=== PATIENT | female | born 1985 | race African-American/Black ===

== ENCOUNTER 2020-03-11 10:34 | Outpatient (REF) | payer MEDICAID, SELFPAY ==
--- NOTE | 2020-03-11 10:40 | XR_ITS ---
EXAMINATION: BILATERAL KNEE. CLINICAL INFORMATION: Pain bilaterally. COMPARISON: None TECHNIQUE: 4 views each knee. FINDINGS: RIGHT KNEE: The tricompartment joint space is maintained. There are no loose bodies, bony erosive changes or joint effusion. LEFT KNEE: The tricompartment joint space is maintained normal. No visible acute fracture, dislocation subluxation. No loose bodies or joint effusion. XR/XR knee LT 4V IMPRESSION: Unremarkable bilateral knee exam
--- NOTE | 2020-03-11 10:40 | XR_ITS ---
EXAMINATION: BILATERAL KNEE. CLINICAL INFORMATION: Pain bilaterally. COMPARISON: None TECHNIQUE: 4 views each knee. FINDINGS: RIGHT KNEE: The tricompartment joint space is maintained. There are no loose bodies, bony erosive changes or joint effusion. LEFT KNEE: The tricompartment joint space is maintained normal. No visible acute fracture, dislocation subluxation. No loose bodies or joint effusion. XR/XR knee RT 4V IMPRESSION: Unremarkable bilateral knee exam
== END 2020-03-11 10:35 | disposition home or self-care (01) ==
LOC: HO.XRAY 10:34
PROVIDERS: PCP Internal Medicine; Visit Provider Internal Medicine
DX: M25.561 Pain in right knee (principal); M25.562 Pain in left knee
CPT/HCPCS: 73564

== ENCOUNTER 2020-11-11 07:14 | Outpatient (REF) | payer MEDICAID, SELFPAY ==
--- NOTE | ~2020-11-11 | XR_ITS ---
EXAMINATION: XR HIP, RIGHT CLINICAL INFORMATION: Pain. COMPARISON: None TECHNIQUE: Two views of the right hip. FINDINGS: Bones and soft tissues are normal. No fracture. Alignment is anatomic. Hip joint space is maintained. Pelvic phleboliths. XR/XR hip RT min 2V IMPRESSION: Normal right hip.
== END 2020-11-11 07:15 | disposition home or self-care (01) ==
LOC: HO.HOSX 07:14
PROVIDERS: Visit Provider Physician Assistant
DX: M70.61 Trochanteric bursitis, right hip (principal); M76.891 Other specified enthesopathies of right lower limb, excluding foot
CPT/HCPCS: 73502; 99202

== ENCOUNTER 2022-10-14 11:02 | Emergency (ER) | payer MEDICAID, SELFPAY ==
--- NOTE | ~2022-10-14 | US_ITS ---
EXAMINATION: US PELVIS, LIMITED/FOLLOW UP CLINICAL INFORMATION: Abdominal pain COMPARISON: None available. TECHNIQUE: Transabdominal Limited pelvic ultrasound FINDINGS: Gravid uterus noted. No fluid seen in the abdomen or pelvis. US/US pelvic limited IMPRESSION: No ascites.
--- NOTE | 2022-10-14 11:04 | ED.ABDPAIN ---
HPI - Abdominal Pain General Chief Complaint: Abdominal Pain Stated Complaint: Hernia Time Seen by Provider: 10/14/22 11:13 Source: patient Mode of arrival: ambulatory Limitations: no limitations History of Present Illness HPI narrative: 82-upln-uxa-female, , who is 12 weeks , with a hx of abdominal hernia, presenting to the ER with complaints of severe abdominal pain x 1 hour. She reports failed attempt at hernia reduction at prior to arrival w/o success. Patient reports severe 10/10 pain w/ a/c nausea, diaphroesis. Called Garima Graves who told her to go to PCP and seek eval, she went to who was unable to reduce hernia. Denies fever, chills, N/V, diarrhea, constipation, back pain, hematuria, dysuria. No previous abd surgeries MD elicited complaint: abdominal pain Related Data Home Medications Medication Instructions Recorded Confirmed buprenorphine 2 mg-naloxone 0.5 mg 1 film buccal DAILY 11/11/20 sublingual film (Suboxone) buprenorphine 8 mg-naloxone 2 mg 1 film buccal DAILY 11/11/20 sublingual film (Suboxone) Allergies Allergy/AdvReac Type Severity Reaction Status Date / Time No Known Allergies Allergy Verified 11/11/20 10:21 Review of Systems Review of Systems Constitutional : No Weight loss, No Fever, No Chills, No Fatigue, No Malaise ENT/Mouth : No sore throat, No Rhinorrhea Eyes: No Eye Pain, No Swelling, No Redness Cardiovascular : No Chest Pain, No SOB, No Dyspnea on Exertion, No Orthopnea, No Edema, No Palpitations Respiratory : No Cough, No Sputum, No Wheezing Gastrointestinal : No Nausea, No Vomiting, No Diarrhea, No Constipation, + abdominal Pain, No Hematochezia, No Melena Genitourinary : No Dysuria, No Urinary Frequency, No Hematuria, Musculoskeletal : No joint pain, No Myalgias, No Joint Swelling Skin : No Skin Lesions, No rash Neuro : No Weakness, No Numbness, No Dizziness, No Headache All other systems reviewed and are negative Yes all other systems are reviewed and are negative [facility] Past Medical History Attestation statement: The following information was validated with the patient. Source: old records reviewed and nursing notes reviewed Surgical History History of hernia surgery Social History Social History Alcohol intake: never Smoked in Last 30 Days: No Use of substances other than those prescribed or required for medical reasons: No Advance Directives: No Advance Directives Information Provided: No Current occupational status: disabled Current occupation: rt handed Physical Exam ED Vital Signs: Vital Signs - 24 hr 10/14/22 11:05 10/14/22 12:31 10/14/22 12:46 Temperature 98 F Pulse Rate 93 88 81 Respiratory Rate 18 18 18 Blood Pressure 138/84 139/78 139/79 Pulse Oximetry 98 98 98 Oxygen Delivery Method Room Air Room Air Room Air BMI result Body Mass Index 28.9 vss Appearance: Alert.? Oriented X3. Patient appears very uncomfortable. Diaphoretic Head: Normocephalic, atraumatic, no step-offs or deformities Eyes: Pupils equal, round and reactive to light.? CVS: Normal heart rate and rhythm.? Pulses normal.? Respiratory: No respiratory distress.? Breath sounds normal.? Abdomen: Soft and tender to epigastric region w/ nonreducible hernia (incarcerated) Skin: Skin warm and dry.? Normal skin color.? Normal skin turgor.? Extremities: No lower extremity edema.? No calf ttp. 5/5 strength to bilateral upper and lower extremities Back: No midline tenderness, no C-spine tenderness, full range of motion, no CVA tenderness bilaterally Neuro: Oriented X 3.? No motor deficit.? No sensory deficit. CN 2-12 intact Course Course Course Narrative: This is an RME: Additional HPI, ROS, PE not included below will be deferred to primary provider. This is a 7-mbgq-bcb-female, , who is 12 weeks , with a hx of abdominal hernia, presenting to the ER with complaints of severe abdominal pain x 1 hour. Pt has hx of an abdominal hernia. She was seen at an urgent care in attempts to reduce the hernia, however was unable to do so. She appears uncomfortable. Ventral hernia noted, moaning in pain. Vital signs stable. No nausea or vomiting since onset of symptoms. Moved back to main ER due to current presentation. Plan: Further ER evaluation needed. Reevaluation(s) Reevaluation #1: Dr. Maynard [facility] states this is not OBGYN related need to speak to [facility] ED. General surgeon Dr. Ramirez at the bedside for eval. Time: 11:40 Reevaluation #2: general surgeon agrees likely incarcerated hernia, patient should be transferred to a facility that has Ob/ ob/gyn and surgery, patient requires higher level care, no obstetrics coverage here in this facility today. On hold with [facility] for emergent transfer. Time: 11:54 Reevaluation #3: No answer from [facility] ED X [address] Simon general surgery [facility] [place] [facility] [place]. Time: 12:09 Additional Reevaluation(s): Patient is still in 10/10 pain. Fentanyl as well as dilauded were ordered Dr. Swift recommended adding dilauded due to patients pain. 1230 waiting for room number from [facility] patient still complaining of severe 10/10 pain, I did inform the surgeon at [facility] about this, patient now to be going to the emergency department and surgery will evaluate her there. Second lactic acid pending Medical Decision Making Medical Decision Making MDM Narrative: 1122 37 yo female presenting with severe abdominal pain currently 12 weeks Patient moaning in pain, visibly uncomfortable, diaphoretic . VSS. Physical exam notable for ventral hernia, unable to reduce. Plan: basic labs, CPK, lactic Clinical concern for strangulated ventral hernia. Low suspicion for ectopic , ovarian cyst rupture, threatened , UTI, PID, pyelonephritis, nephrolithiasis. Will call [facility] at this time no OBGYN coverage at this time. at the bedside to evaluate patient while [facility] call back pending request fentanyl for pain control. Differential Diagnosis Differential Diagnoses: The differential diagnosis associated with the presentation includes Clinical concern for strangulated ventral hernia. Low suspicion for ectopic , ovarian cyst rupture, threatened , UTI, PID, pyelonephritis, nephrolithiasis. Admission/Observation Consideration of admission/observation: Escalation of care including admission/observation considered Lab Data [facility] Lab Attestation statement: I reviewed the patient's lab results. 10/14/22 11:34 10/14/22 11:34 Labs: Lab Results 10/14/22 10/14/22 10/14/22 Range/Units 11:34 11:34 11:34 WBC 6.5 (4.8-10.8) X10*3/uL RBC 4.38 (4.20-5.50) X10*6/uL Hgb 13.8 (12.0-16.0) g/dl Hct 38.9 (37.0-47.0) % MCV 88.8 (80.0-98.0) fL MCH 31.5 (27.0-33.0) pg MCHC 35.5 H (31.0-35.0) g/dl RDW 11.4 (11.0-16.0) % Plt Count 279 (160-400) X10*3/uL MPV 10.4 (9.4-12.3) fL Immature Gran % (Auto) 0.3 (0.0-0.4) % Neut % (Auto) 58.0 (45-73) % Lymph % (Auto) 30.9 (20-40) % Newberry % (Auto) 8.5 (2-11) % Eos % (Auto) 2.0 (0-4) % Baso % (Auto) 0.3 (0-2) % Lymph # (Auto) 2.0 (1.2-4.9) X10*3/uL Newberry # (Auto) 0.6 (0.1-1.2) X10*3/uL Eos # (Auto) 0.1 (0.0-0.4) X10*3/uL Baso # (Auto) 0.0 (0.0-0.2) X10*3/uL Abs Immat Gran (auto) 0.02 (0.00-0.03) X10*3/uL Absolute Neuts (auto) 3.8 (2.0-8.3) x10*3/uL Absolute Nucleated RBC 0.000 (0.0-0.012) X10*3/uL Nucleated RBC % (auto) 0.0 (0.0-0.2) /100WBC Sodium 138 (135-145) mmol/L Potassium 3.7 (3.3-5.1) mmol/L Chloride 104 (96-108) mmol/L Carbon Dioxide 21 L (22-29) mmol/L Anion Gap 17 (12-20) BUN 9 (9-16) mg/dL Creatinine 0.75 (0.5-1.4) mg/dL Estim Creat Clear Calc 97.0 Estimated GFR > 60 Random Glucose 106 (60-115) mg/dL Lactic Acid 1.6 (0.5-2.0) mmol/L Calcium 9.8 (8.4-10.2) mg/dL Magnesium 2.0 (1.6-2.6) mg/dL Total Bilirubin 0.6 (0.0-1.0) mg/dL Direct Bilirubin 0.2 (0.0-0.5) mg/dL AST 12 (5-31) U/L ALT 8 (0-31) U/L Alkaline Phosphatase 44 (39-117) U/L Total Creatine Kinase 73 (26-140) U/L Total Protein 7.9 (6.5-8.0) g/dL Albumin 4.3 (3.5-5.0) g/dL Lipase 9 (8-78) U/L COVID-19 (NOHEMI) (Negative) COVID-19 Clin Com 10/14/22 Range/Units 12:13 WBC (4.8-10.8) X10*3/uL RBC (4.20-5.50) X10*6/uL Hgb (12.0-16.0) g/dl Hct (37.0-47.0) % MCV (80.0-98.0) fL MCH (27.0-33.0) pg MCHC (31.0-35.0) g/dl RDW (11.0-16.0) % Plt Count (160-400) X10*3/uL MPV (9.4-12.3) fL Immature Gran % (Auto) (0.0-0.4) % Neut % (Auto) (45-73) % Lymph % (Auto) (20-40) % Newberry % (Auto) (2-11) % Eos % (Auto) (0-4) % Baso % (Auto) (0-2) % Lymph # (Auto) (1.2-4.9) X10*3/uL Newberry # (Auto) (0.1-1.2) X10*3/uL Eos # (Auto) (0.0-0.4) X10*3/uL Baso # (Auto) (0.0-0.2) X10*3/uL Abs Immat Gran (auto) (0.00-0.03) X10*3/uL Absolute Neuts (auto) (2.0-8.3) x10*3/uL Absolute Nucleated RBC (0.0-0.012) X10*3/uL Nucleated RBC % (auto) (0.0-0.2) /100WBC Sodium (135-145) mmol/L Potassium (3.3-5.1) mmol/L Chloride (96-108) mmol/L Carbon Dioxide (22-29) mmol/L Anion Gap (12-20) BUN (9-16) mg/dL Creatinine (0.5-1.4) mg/dL Estim Creat Clear Calc Estimated GFR Random Glucose (60-115) mg/dL Lactic Acid (0.5-2.0) mmol/L Calcium (8.4-10.2) mg/dL Magnesium (1.6-2.6) mg/dL Total Bilirubin (0.0-1.0) mg/dL Direct Bilirubin (0.0-0.5) mg/dL AST (5-31) U/L ALT (0-31) U/L Alkaline Phosphatase (39-117) U/L Total Creatine Kinase (26-140) U/L Total Protein (6.5-8.0) g/dL Albumin (3.5-5.0) g/dL Lipase (8-78) U/L COVID-19 (NOHEMI) Negative (Negative) COVID-19 Clin Com See Note Core Measures AMI core measures followed: Yes Measure exclusions: not indicated Medications Administered Discontinued Medications Generic Name Dose Route Start Last Admin Trade Name Freq PRN Reason Stop Dose Admin Acetaminophen 975 mg 10/14/22 11:36 10/14/22 11:47 Acetaminophen 325 Mg Tablet PO 10/14/22 11:37 Not Given ONCE ONE Fentanyl 50 mcg 10/14/22 11:37 10/14/22 11:43 Fentanyl Citrate/Pf 100 Mcg/2 Ml Vial IVPUSH 10/14/22 11:38 50 mcg ONCE ONE Administration Protocol Fentanyl 50 mcg 10/14/22 12:26 10/14/22 12:30 Fentanyl Citrate/Pf 100 Mcg/2 Ml Vial IVPUSH 10/14/22 12:27 50 mcg ONCE ONE Administration Protocol Hydromorphone HCl 0.25 mg 10/14/22 12:29 10/14/22 12:45 Hydromorphone Hcl 0.5 Mg/0.5 Ml Syringe IVPUSH 10/14/22 12:30 0.25 mg ONCE ONE Administration Protocol Hydromorphone HCl 0.25 mg 10/14/22 13:29 10/14/22 14:01 Hydromorphone Hcl 0.5 Mg/0.5 Ml Syringe IVPUSH 10/14/22 13:30 0.25 mg ONCE ONE Administration Protocol Critical Care Time Critical Care Time Critical Care Time: Yes Total Critical Care Time: 45 Attestation: I attest to this time spent taking care of the patient, obtaining history, physical, reviewing labs, imaging, speaking to my attending, speaking to specialist. Discharge Plan Discharge Clinical Impression: Incarcerated epigastric hernia, Abdominal pain Patient Disposition: [facility] Transfer Details: [facility] [place] Simon
[2022-10-14 11:05] VITALS: BP 138/84; PULSE 93; RESP 18; TEMP 36.6; O2SAT 98; BMI 28.9
--- OUTSIDE RECORDS SUMMARY | 2022-10-14 11:22 | XMS_ITS | Continuity of Care Document ---
Author Name Unknown Organization [facility] Address [address] [place] [id number] Care Team Providers Care Datastage Developer Name Role Phone Chino SMYTH, Edward Vigil Primary Care Physician Encounter [facility] Date(s): 11/23/19 - 12/23/[address] [address]- Allergies, Adverse Reactions, Alerts Substance Reaction Severity Status NKA Active Immunizations Given and Recorded Vaccine Date Status Refusal Reason influenza virus vaccine, inactivated 12/03/19 Give n influenza virus vaccine, inactivated 04/10/19 Give n influenza virus vaccine, inactivated 11/23/17 Give n tetanus/diphtheria/pertussis, acel(Tdap) 09/07/19 Given tetanus/diphtheria/pertussis, acel(Tdap) 12/24/17 Given tetanus/diphtheria/pertussis, acel(Tdap) 07/24/13 Given Medications abdominal binder abdominal binder, See Instructions, # 1 each, Refills 0, Tot. Refills 0, Maintenance, wear during the day, 05/19/19 12:57:00 EDT, Supply Start Date: 05/19/19 Status: Ordered acetaminophen 325 mg oral tablet 650 mg, By Mouth, Every 4 hours, PRN, not to exceed 4000 mg/day, # 60 tablet, Refills 0, Tot. Refills 0, Maintenance, Pain , Mild, 12/04/19 8:15:00 EDT, Route to Pharmacy Electronically, [facility] #[id number], 158, cm, 12/04/19 0:00:00 EDT, [place]... Start Date: 12/04/19 Status: Ordered ibuprofen 800 mg oral tablet 800 mg, 1, tablet, By Mouth, Every 8 hours, PRN, not to exceed 3200 mg/day with food or milk, # 60 tablet, Refills 0, Tot. Refills 0, Maintenance, Pain , Moderate, 12/04/19 8:15:00 EDT, Route to Pharmacy Electronically, [facility] #[id number], 1... Start Date: 12/04/19 Status: Ordered Multivitamins with Folic Acid 1 mg oral tablet 1 tablet, By Mouth, Daily, # 90 tablet, 3 Refills, Maintenance, 03/23/18 14:58:20 EST, Tablet, 1 tablet By Mouth Daily,x90 days Start Date: 03/23/18 Stop Date: 03/18/19 Status: Ordered Multivitamins with Folic Acid 1 mg oral tablet 1 tablet, By Mouth, Daily, # 90 tablet, 2 Refills, Maintenance, 03/31/19 12:43:00 EST, Tablet, [facility] #[id number], 1 tablet By Mouth Daily, 158, cm, 08/01/18 9:39:00 EDT, Height, 74, kg, 03/08/18 17:20:00 EST, Dry Weight Start Date: 03/31/19 Status: Ordered promethazine 25 mg oral tablet 1 tablet = 25 mg, By Mouth, 4 times a day, PRN as needed for nausea/vomiting, # 90 tablet, 3 Refills, Maintenance, 05/11/19 13:48:00 EDT, Tablet, [facility] #[id number], 158, cm, 04/10/19 10:17:00 EST, Height, 85.1, kg, 04/10/19 10:17:00 EST, Dry... Start Date: 05/11/19 Status: Ordered Suboxone 4 mg-1 mg sublingual film 1 film, Sublingual, 2 times a day, dissolve under the tongue, 0 Refills, Maintenance, 05/18/19 15:52:00 EDT, Film Start Date: 05/18/19 Status: Ordered Valtrex 500 mg oral tablet 500 mg, 1, tablet, By Mouth, Every 12 hours, Take as directed for suppression, # 6 tablet, Refills 3, Tot. Refills 3, Acute 09/04/20 14:33:00 EDT, 09/05/19 14:31:00 EDT, Route to Pharmacy Electronically, [facility] #[id number], 158, cm, 08/10/19... Start Date: 09/05/19 Stop Date: 09/04/20 Status: Ordered Problem List Condition Effective Dates Status Health Status Inform ant Sports induced - Asthma(Confirmed) Active Bipolar(Confirmed) 1, 2 Active Marijuana use(Confirmed) Active Generalized anxiety disorder(Confirmed) Active H/O: depression(Confirmed) Active H/O childhood trauma(Confirmed) Active History of herpes genitalis(Confirmed) Active History of frequent urinary tract infections(Confirmed) 3 Active Opiate dependence(Confirmed) Active exam(Confirmed) Active HX of Post depression(Confirmed) Active Umbilical hernia s/p repair in 1989, now new one since delivery(Confirmed) Active 1Managed by [facility], seen twice a month for therapy and once monthly for med management. Patient states well controlled at this time 2hx of bipolar with mental health services - not managed at present 3during pregnancies per pt's hx Social History Social History Type Response Tobacco Use: 4 or less cigar ettes(less than 1/4 pack)/day in last 30 days. Sex
--- OUTSIDE RECORDS SUMMARY | 2022-10-14 11:22 | XMS_ITS | Continuity of Care Document ---
Author Name Unknown Organization [facility] Address [address] [place] [id number]- Care Team Providers Care Stevedoring Supervisor Name Role Phone Edward Magana MD Primary Care Physician [place] [facility] [place](s): [place]/18/[place] - 05/25/[address] [address]- [facility] Attending Physician: Melissa Lobo MD Admitting Physician: Melissa Lobo MD Referring Physician: Edward Magana MD Allergies, Adverse Reactions, Alerts Substance Reaction Severity Status NKA Active Immunizations Given and Recorded Vaccine Date Status Refusal Reason influenza virus vaccine, inactivated 04/10/19 Give n influenza virus vaccine, inactivated 11/23/17 Give n tetanus/diphtheria/pertussis, acel(Tdap) 12/24/17 Given tetanus/diphtheria/pertussis, acel(Tdap) 07/24/13 Given Medications abdominal binder abdominal binder, See Instructions, # 1 each, Refills 0, Tot. Refills 0, Maintenance, wear during the day, 05/19/19 12:57:00 EDT, Supply Start Date: 05/19/19 Status: Ordered cloNIDine 0.1 mg oral tablet 0.1 mg, 1, tablet, By Mouth, 3 times a day, PRN, Refills 0, Maintenance, Anxiety, 04/10/19 10:30:00EST Start Date: 04/10/19 Status: Ordered Multivitamins with Folic Acid 1 mg oral tablet 1 tablet, By Mouth, Daily, # 90 tablet, 3 Refills, Maintenance, 03/23/18 14:58:20 EST, Tablet, 1 tablet By Mouth Daily,x90 days Start Date: 03/23/18 Stop Date: 03/18/19 Status: Ordered Multivitamins with Folic Acid 1 mg oral tablet 1 tablet, By Mouth, Daily, # 90 tablet, 2 Refills, Maintenance, 03/31/19 12:43:00 EST, Tablet, [facility] #[id number], 1 tablet By Mouth Daily, 158, cm, 08/01/18 9:39:00 EDT, Height, 74, kg, 03/08/18 17:20:00 EST, Dry Weight Start Date: 03/31/19 Status: Ordered promethazine 25 mg oral tablet 1 tablet = 25 mg, By Mouth, 4 times a day, PRN as needed for nausea/vomiting, # 90 tablet, 3 Refills, Maintenance, 05/11/19 13:48:00 EDT, Tablet, [facility] #[id number], 158, cm, 04/10/19 10:17:00 EST, Height, 85.1, kg, 04/10/19 10:17:00 EST, Dry... Start Date: 05/11/19 Status: Ordered Suboxone 4 mg-1 mg sublingual film 1 film, Sublingual, 2 times a day, dissolve under the tongue, 0 Refills, Maintenance, 05/18/19 15:52:00 EDT, Film Start Date: 05/18/19 Status: Ordered Valtrex 500 mg oral tablet 500 mg, 1, tablet, By Mouth, Daily, Refills 0, Maintenance, 03/23/18 14:40:50 EST Start Date: 03/23/18 Status: Ordered Problem List Condition Effective Dates Status Health Status Inform ant Sports induced - Asthma(Confirmed) Active Bipolar(Confirmed) 1, 2 Active Marijuana use(Confirmed) Active H/O: depression(Confirmed) Active H/O childhood trauma(Confirmed) Active History of herpes genitalis(Confirmed) Active History of frequent urinary tract infections(Confirmed) 3 Active Opiate dependence(Confirmed) Active HX of Post depression(Confirmed) Active Umbilical hernia s/p repair in 1989, now new one since delivery(Confirmed) Active 1Managed by [facility], seen twice a month for therapy and once monthly for med management. Patient states well controlled at this time 2hx of bipolar with mental health services - not managed at present 3during pregnancies per pt's hx Social History Social History Type Response Tobacco Use: 4 or less cigar ettes(less than 1/4 pack)/day in last 30 days. Other: Cutting down during , smokes one cigarette daily. Sex Female
--- OUTSIDE RECORDS SUMMARY | 2022-10-14 11:22 | XMS_ITS | Continuity of Care Document ---
Author Name Unknown Organization [facility] Address [address] [place] [id number]- Care Team Providers Care Cigarette Book Maker Name Role Phone Chino SMYTH, Edward Vigil Primary Care Physician Encounter [facility] [place] Date(s): 07/13/19 - 07/20/[address] [address]- [facility] Attending Physician: Melissa Lobo MD Referring Physician: Edward [...] EDT, Supply Start Date: 05/19/19 Status: Ordered aspirin 81 mg oral tablet 2 tablet = 162 mg, By Mouth, Daily, # 60 tablet, 7 Refills, Maintenance, 06/15/19 15:22:00 EDT, Tablet, [facility] #[id number], 158, cm, 06/15/19 15:06:00 EDT, Height, 85.1, kg, 04/10/19 10:17:00 EST, Dry Weight Start Date: 06/15/19 Status: Ordered cloNIDine 0.1 mg oral tablet [...] 2 Refills, Maintenance, 03/31/19 12:43:00 EST, Tablet, [facility] #[id number], 1 tablet By Mouth Daily, 158, cm, 08/01/18 9:39:00 EDT, Height, 74, kg, 03/08/18 17:20:00 EST, Dry Weight Start Date: 03/31/19 Status: Ordered promethazine 25 mg oral tablet 1 tablet = 25 mg, By Mouth, 4 times a day, PRN as needed for nausea/vomiting, # 90 tablet, 3 Refills, Maintenance, 05/11/19 13:48:00 EDT, Tablet, [facility] #[id number], 158, cm, 04/10/19 10:17:00 EST, Height, 85.1, [...]
--- OUTSIDE RECORDS SUMMARY | 2022-10-14 11:22 | XMS_ITS | Continuity of Care Document ---
Author Name Unknown Organization [facility] Address [address] [place] [address]- Care Team Providers Care Flare Stitcher Name Role Phone Chino SMYTH, Edward Vigil Primary Care Physician Encounter [facility] [place] Date(s): 01/07/21 - 03/01/[address] [address]- Attending Physician: Yamil SMYTH [OB], Melissa Duron Admitting Physician: Yamil SMYTH [OB], Melissa Duron Referring Physician: Hyun Gramajo MD Allergies, Adverse Reactions, Alerts No Known Allergies Immunizations Given and Recorded Vaccine Date Status [...] EDT, Supply Start Date: 05/19/19 Status: Ordered Multivitamins with Folic Acid 1 mg oral tablet 1 tablet, By Mouth, Daily, # 90 tablet, 3 Refills, Maintenance, 01/07/21 10:31:00 EST, Tablet, [facility] #[id number], Partial fill upon patient request if the prescription is for a schedule II opioid drug., 1 tablet By Mouth Daily, 158, cm, 11/16... Start Date: 01/07/21 Status: Ordered Suboxone 4 mg-1 mg sublingual film 1 film, Sublingual, 2 times a day, dissolve under the tongue, 0 Refills, Maintenance, 05/18/19 15:52:00 EDT, Film Start Date: 05/18/19 Status: Ordered Problem List Condition Effective Dates Status Health Status Inform ant Sports induced - Asthma(Confirmed) 1 Active Bipolar(Confirmed) 2, 3 Active BMI 30.0-30.9,adult(Confirmed) Active Marijuana use(Confirmed) 4 Active Generalized anxiety disorder(Confirmed) Active H/O: depression(Confirmed) Active H/O childhood trauma(Confirmed) Active History of herpes genitalis(Confirmed) Active History of frequent urinary tract infections(Confirmed) 5 Active Obese class I(Confirmed) Active Opiate dependence(Confirmed) 6 Active HX of Post depression(Confirmed) Active PTSD (post-traumatic stress disorder)(Confirmed) Active H/O Gestational hypertension(Confirmed) Active Schizoaffective disorder, bi polar type(Confirmed) 7 Active Tobacco use(Confirmed) 8 Active Umbilical hernia s/p repair in 1989, now new one since delivery(Confirmed) Active 1Patient states she does not have an inhaler 2Managed by [facility], seen twice a month for therapy and once monthly for med management. Patient states well controlled at this time 3hx of bipolar with mental health services - not managed at present 4Medical MJ card 5during pregnancies per pt's hx 6currently takes 10 mg suboxone daily through [facility] [address] 7Patient states she is not in therapy or on medications at this time. States she is on a waitlist for counseling. States currently stable and feels well. Accepts N consult. 8States working on cutting down to quit in . States she currently smokes 1 cigarette daily.Declines NRT. Social History Social History Type Response Tobacco Use: 4 or less cigar ettes(less than 1/4 pack)/day in last 30 days. Other: Cutting down during , smokes one cigarette daily. Sex Female
--- OUTSIDE RECORDS SUMMARY | 2022-10-14 11:22 | XMS_ITS | Continuity of Care Document ---
Author Name Unknown Organization [facility] ter Address [address] [place] [address]- Care Team Providers Care Burial Vault Maker Name Role Phone Edward Magana MD Primary Care Physician Encounter [facility] [place] Date(s): 05/24/20 - 05/25/[address] [address]- Discharge Disposition: A-D/C Walkout Attending Physician: Not on Staff, Attending MD Admitting Physician: Not on Staff, Admitting MD Referring Physician: Not on Staff, Referring MD Allergies, Adverse Reactions, Alerts Substance Reaction [...] 12/04/19 8:15:00 EDT, Route to Pharmacy Electronically, [facility] #[id number], 158, cm, 12/04/19 0:00:00 EDT, Heig... Start Date: 12/04/19 Status: Ordered ibuprofen 800 mg oral tablet 800 mg, 1, tablet, By Mouth, Every 8 hours, PRN, not to exceed 3200 mg/day with food or milk, # 60 tablet, Refills 0, Tot. Refills 0, Maintenance, Pain , Moderate, 12/04/19 8:15:00 EDT, Route to Pharmacy Electronically, [facility] #[id number], 1... Start Date: 12/04/19 Status: Ordered Multivitamins with Folic Acid 1 mg oral tablet 1 tablet, By Mouth, Daily, # 90 tablet, 2 Refills, Maintenance, 03/31/19 12:43:00 EST, Tablet, [facility] #[id number], 1 tablet By Mouth Daily, 158, cm, 08/01/18 9:39:00 EDT, Height, 74, kg, 03/08/18 17:20:00 EST, Dry Weight Start Date: 03/31/19 Status: Ordered Multivitamins with Folic Acid 1 mg oral tablet 1 tablet, By Mouth, Daily, # 90 tablet, 3 Refills, Maintenance, 03/23/18 14:58:20 EST, Tablet, 1 tablet By Mouth Daily,x90 days Start Date: 03/23/18 Stop Date: 03/18/19 Status: Ordered promethazine 25 mg oral tablet 1 tablet = 25 mg, By Mouth, 4 times a day, PRN as needed for nausea/vomiting, # 90 tablet, 3 Refills, Maintenance, 05/11/19 13:48:00 EDT, Tablet, [facility] #[id number], 158, cm, 04/10/19 10:17:00 EST, Height, 85.1, [...] 09/05/19 14:31:00 EDT, Route to Pharmacy Electronically, [facility] #[id number], 158, cm, 08/10/19... Start Date: 09/05/19 Stop [...] at present 3during pregnancies per pt's hx Vital Signs Most recent to oldest [Reference Range]: 1 2 Oxygen Saturation [94-100 %] 98 % (05/24/20 9:29 PM) 100 % (05/24/20 7:43 PM) Pulse Rate [55-90 bpm] 82 bpm (05/24/20 9:29 PM) 95 bpm *H* (05/24/20 7:43 PM) Blood Pressure [90-138/55-84 mm Hg] 129/ 75mm Hg (05/24/20 9:29 PM) 124/77mm Hg (05/24/20 7:43 PM) Respiratory Rate [16-30 br/min] 15 br/mi n *L* (05/24/20 9:29 PM) 20 br/min (05/24/20 7:43 PM) Temperature [96.8-100.4 DegF] 99.2 DegF (05/24/20 9:29 PM) 100.3 DegF (05/24/20 7:43 PM) Mode of Delivery (Oxygen) Room air (05/24/20 9:29 PM) Room air (05/24/20 7:43 PM) Blood pressure sites Arm, left (05/24/20 9:29 PM) Arm, right (05/24/20 7:43 PM) Temperature Route Oral (05/24/20 9:29 PM) Oral (05/24/20 7:43 PM) Social History Social History Type Response Tobacco Use: 4 or less cigar ettes(less than 1/4 pack)/day in last 30 days. Sex
--- OUTSIDE RECORDS SUMMARY | 2022-10-14 11:22 | XMS_ITS | Continuity of Care Document ---
Author Name Unknown Organization [facility] Address [address] [place] [address]- Care Team Providers Care Commercial Sheet Metal Foreman Name Role Phone Chino SMYTH, Edward Vigil Primary Care Physician En[facility] [place] [facility] Date(s): 10/24/19 - 11/23/[address] [address]- [facility] Allergies, Adverse Reactions, Alerts Substance Reaction Severity Status NKA Active Immunizations Given and Recorded Vaccine Date Status Refusal Reason tetanus/diphtheria/pertussis, acel(Tdap) 09/07/19 Given tetanus/diphtheria/pertussis, acel(Tdap) 12/24/17 Given tetanus/diphtheria/pertussis, acel(Tdap) 07/24/13 Given influenza virus vaccine, inactivated 04/10/19 Give n influenza virus vaccine, inactivated 11/23/17 Give n Medications abdominal binder abdominal binder, See Instructions, # 1 each, Refills 0, Tot. Refills 0, Maintenance, wear during the day, 05/19/19 12:57:00 EDT, Supply Start Date: 05/19/19 Status: Ordered aspirin 81 mg oral tablet 2 tablet = 162 mg, By Mouth, Daily, # 60 tablet, 7 Refills, Maintenance, 06/15/19 15:22:00 EDT, Tablet, [facility] #[id number], 158, cm, 06/15/19 15:06:00 EDT, Height, 85.1, kg, 04/10/19 10:17:00 EST, Dry Weight Start Date: 06/15/19 Status: Ordered Multivitamins with Folic Acid 1 mg oral tablet 1 tablet, By Mouth, Daily, # 90 tablet, 3 Refills, Maintenance, 03/23/18 14:58:20 EST, Tablet, 1 tablet By Mouth Daily,x90 days Start Date: 03/23/18 Stop Date: 03/18/19 Status: Ordered Multivitamins with Folic Acid 1 mg oral tablet 1 tablet, By Mouth, Daily, # 90 tablet, 2 Refills, Maintenance, 03/31/19 12:43:00 EST, Tablet, [facility] #[id number], 1 tablet By Mouth Daily, 158, cm, 08/01/18 9:39:00 EDT, Height, 74, kg, 03/08/18 17:20:00 EST, Dry Weight Start Date: 03/31/19 Status: Ordered promethazine 25 mg oral tablet 1 tablet = 25 mg, By Mouth, 4 times a day, PRN as needed for nausea/vomiting, # 90 tablet, 3 Refills, Maintenance, 05/11/19 13:48:00 EDT, Tablet, [facility] #[id number], 158, cm, 04/10/19 10:17:00 EST, Height, 85.1, [...] 09/05/19 14:31:00 EDT, Route to Pharmacy Electronically, [facility] #[id number], 158, cm, 08/10/19... Start Date: 09/05/19 Stop [...] 1/4 pack)/day in last 30 days. Sex Female
--- OUTSIDE RECORDS SUMMARY | 2022-10-14 11:22 | XMS_ITS | Continuity of Care Document ---
Author Name Unknown Organization [facility] ter Address [address] [place] [address]- Care Team Providers Care Grain Packer Name Role Phone Chino SMYTH, Edward Vigil Primary Care Physician Encounter [facility] [place] Date(s): 02/11/21 - 02/18/[address] [address] Attending Physician: Yamil SMYTH [OB], Melissa Duron Allergies, Adverse Reactions, Alerts Substance Reaction Severity [...] 3 Refills, Maintenance, 01/07/21 10:31:00 EST, Tablet, [facility] #[id number], Partial fill upon patient request if the prescription is for a schedule II opioid drug., 1 tablet By Mouth Daily, 158, cm, 102... Start Date: 01/07/21 Status: Ordered Suboxone 4 [...] does not have an inhaler 2Managed by [facility], seen twice a month for therapy and once monthly for med management. Patient states well controlled at this time 3hx of bipolar with mental health services - not managed at present 4Medical MJ card 5during pregnancies per pt's hx 6currently takes 10 mg suboxone daily through [facility] [address] 7Patient states she is not in [...]
--- OUTSIDE RECORDS SUMMARY | 2022-10-14 11:22 | XMS_ITS | Continuity of Care Document ---
Author Name Unknown Organization [facility] Address [address], [address] [place] [address]- Care Team Providers Care Geothermal Sheet Metal Worker Name Role Phone Chino SMYTH, Edward Vigil Primary Care Physician En[place] [facility] Date(s): 02/11/21 - 02/13/21 [facility] [employer] [facility] [address] [place], [place] [address] Discharge Disposition: A-D/C Home Attending Physician: Bill Conte MD Admitting Physician: Bill Conte MD Referring Physician: Edward Magana MD Allergies, [...] 3 Refills, Maintenance, 01/07/21 10:31:00 EST, Tablet, [email or web address] #[id number], Partial fill upon patient request if the [...] does not have an inhaler 2Managed by [facility], seen twice a month for therapy and once monthly for med management. Patient states well controlled at this time 3hx of bipolar with mental health services - not managed at present 4Medical MJ card 5during pregnancies per pt's hx 6currently takes 10 mg suboxone daily through [facility] [address] 7Patient states she is not in [...]
--- OUTSIDE RECORDS SUMMARY | 2022-10-14 11:22 | XMS_ITS | Continuity of Care Document ---
Author Name Unknown Organization [facility] Address [address] [place] [address]- Care Team Providers Care Bevel Face Stoner And Polisher Name Role Phone Chino SMYTH, Edward Vigil Primary Care Physician Encounter [facility] Date(s): 08/31/22 - 10/10/22 [facility] [address] [address]- Attending Physician: Not on Staff, Attending MD Allergies, Adverse Reactions, Alerts No Known Allergies Immunizations Given and Recorded Vaccine Date Status Refusal Reason influenza virus vaccine, inactivated 12/03/19 Give n influenza virus vaccine, inactivated 04/10/19 Give n influenza virus vaccine, inactivated 11/23/17 Give n tetanus/diphtheria/pertussis, acel(Tdap) 09/07/19 Given tetanus/diphtheria/pertussis, acel(Tdap) 12/24/17 Given tetanus/diphtheria/pertussis, acel(Tdap) 07/24/13 Given Medications Multivitamins with Folic Acid 1 mg oral tablet 1 tablet, By Mouth, Daily, # 90 tablet, 3 Refills, Maintenance, 01/07/21 10:31:00 EST, Tablet, [facility] #[id number], Partial fill upon patient request if the prescription is for a schedule II opioid drug., 1 tablet By Mouth Daily, 158, cm, 11/16... Start Date: 01/07/21 Status: Ordered Suboxone 4 mg-1 mg sublingual film 1 film, Sublingual, 2 times a day, dissolve under the tongue, 0 Refills, Maintenance, 05/18/19 15:52:00 EDT, Film Start Date: 05/18/19 Status: Ordered Problem List Condition Confirmation Course Effective Dates Status H ealth Status Informant Sports induced - Asthma 1 Confirmed Active Bipolar 2, 3 Confirmed Active BMI 30.0-30.9,adult Confirmed Active Marijuana use 4 Confirmed Active Generalized anxiety disorder Confirmed Active H/O: depression Confirmed Active H/O childhood trauma Confirmed Active History of herpes genitalis Confirmed Active History of frequent urinary tract infections 5 Confirmed Active AMA (advanced maternal age) multigravida 35+ Confirmed Active Obese class I Confirmed Active Opiate dependence 6 Confirmed Active HX of Post depression Confirmed Active PTSD (post-traumatic stress disorder) Confirmed Active H/O Gestational hypertension Confirmed Active Schizoaffective disorder, bipolar type 7 Confirmed Active History of Tobacco use 8, 9 Confirmed 08/29/22 Active Umbilical hernia s/p repair in 1989, now new one since delivery Confirmed Active 1Patient states she does not have an inhaler 2Managed by [facility], seen twice a month for therapy and once monthly for med management. Patient states well controlled at this time 3hx of bipolar with mental health services - not managed at present 4Medical MJ card 5during pregnancies per pt's hx 6currently takes 10 mg suboxone daily through [facility] [address] 7Patient states she is not in therapy or on medications at this time. States she is on a waitlist for counseling. States currently stable and feels well. Accepts N consult. 8Pt quit 10 days ago, was smoking 5 cigarettes prior to . Declines NRT, makes her feel awful, exacerbates pt's anxiety. 9States working on cutting down to quit in . States she currently smokes 1 cigarette daily.Declines NRT. Social History Social History Type Response Smoking Status Former smoker, quit more than 30 days ago; Other: Quit 10 days ago, was smoking 5/day; entered on: 09/10/22 Sex Female Patient Care team information Care Team Personnel Name: Hali Kirkpatrick Position: [facility] APERTURE MASK ETCHER MD Member Role: [employer] APERTURE MASK ETCHER Physician Care Team Related Persons Name: ALEXIS HELLER Address: [employer] Address: home [address] [address] [place] Name: JULIANA DAO Address: [employer] Address: home [address] [place] [address] [place] Name: KIMBERLY DOUGLAS Address: home [address] [place] [address] Name: DORIS JACOBS Address: home [address] [place] [id number]
--- OUTSIDE RECORDS SUMMARY | 2022-10-14 11:22 | XMS_ITS | Continuity of Care Document ---
Author Name Unknown Organization [facility] Address [address] [place] [address]- Care Team Providers Care Slubber Hand Name Role Phone Chino SMYTH, Edward Vigil Primary Care Physician Encounter [facility] Date(s): 09/05/19 - 10/05/19 [facility] [address] [address]- [facility] Allergies, Adverse Reactions, Alerts Substance [...] 7 Refills, Maintenance, 06/15/19 15:22:00 EDT, Tablet, [facility] #[id number], 158, cm, 06/15/19 15:06:00 EDT, Height, 85.1, [...] 2 Refills, Maintenance, 03/31/19 12:43:00 EST, Tablet, [facility] #[id number], 1 tablet By Mouth Daily, 158, cm, 08/01/18 9:39:00 EDT, Height, 74, kg, 03/08/18 17:20:00 EST, Dry Weight Start Date: 03/31/19 Status: Ordered promethazine 25 mg oral tablet 1 tablet = 25 mg, By Mouth, 4 times a day, PRN as needed for nausea/vomiting, # 90 tablet, 3 Refills, Maintenance, 05/11/19 13:48:00 EDT, Tablet, [facility] #[id number], 158, cm, 04/10/19 10:17:00 EST, Height, 85.1, [...] 09/05/19 14:31:00 EDT, Route to Pharmacy Electronically, [facility] #[id number], 158, cm, 08/10/19... Start Date: 09/05/19 Stop Date: 09/04/20 Status: Ordered Problem List Condition Effective Dates Status Health Status Inform ant Sports induced - Asthma(Confirmed) Active Bipolar(Confirmed) 1, 2 Active Marijuana use(Confirmed) Active Generalized anxiety disorder(Confirmed) Active Genital herpes simplex(Confirmed) 3 09/10/19 Active H/O: depression(Confirmed) Active H/O childhood trauma(Confirmed) Active History of herpes genitalis(Confirmed) Active History of frequent urinary tract infections(Confirmed) 4 Active Opiate dependence(Confirmed) Active HX of Post depression(Confirmed) Active Umbilical hernia s/p repair in 1989, now new one since delivery(Confirmed) Active 1Managed by [facility], seen twice a month for therapy and once monthly for med management. Patient states well controlled at this time 2hx of bipolar with mental health services - not managed at present 3Problem added by Discern Expert 4during pregnancies per pt's hx Social History Social History Type Response Tobacco Use: 4 or less cigar ettes(less than 1/4 pack)/day in last 30 days. Sex Female
--- OUTSIDE RECORDS SUMMARY | 2022-10-14 11:23 | XMS_ITS | Continuity of Care Document ---
Author Name Unknown Organization [facility] ter Address [address] [place] [address]- Care Team Providers Care Operational Test Mechanic Name Role Phone Chino SMYTH, Edward Vigil Primary Care Physician En[facility] [place] Date(s): 12/03/19 - 12/04/[address] [address]- [facility] Discharge Disposition: A-D/C Home Attending Physician: Andrey Lemus MD Admitting Physician: Andrey Lemus MD Referring Physician: Andrey Lemus MD Allergies, Adverse Reactions, Alerts Substance Reaction [...] 12/04/19 8:15:00 EDT, Route to Pharmacy Electronically, [facility] #[id number], 158, cm, 12/04/19 0:00:00 EDT, Heig... Start Date: 12/04/19 Status: Ordered ibuprofen 800 mg oral tablet 800 mg, 1, tablet, By Mouth, Every 8 hours, PRN, not to exceed 3200 mg/day with food or milk, # 60 tablet, Refills 0, Tot. Refills 0, Maintenance, Pain , Moderate, 12/04/19 8:15:00 EDT, Route to Pharmacy Electronically, [facility] #[id number], 1... Start Date: 12/04/19 Status: Ordered Multivitamins [...] 2 Refills, Maintenance, 03/31/19 12:43:00 EST, Tablet, [facility] #[id number], 1 tablet By Mouth Daily, 158, cm, 08/01/18 9:39:00 EDT, Height, 74, kg, 03/08/18 17:20:00 EST, Dry Weight Start Date: 03/31/19 Status: Ordered promethazine 25 mg oral tablet 1 tablet = 25 mg, By Mouth, 4 times a day, PRN as needed for nausea/vomiting, # 90 tablet, 3 Refills, Maintenance, 05/11/19 13:48:00 EDT, Tablet, [facility] #[id number], 158, cm, 04/10/19 10:17:00 EST, Height, 85.1, [...] 09/05/19 14:31:00 EDT, Route to Pharmacy Electronically, [facility] #[id number], 158, cm, 08/10/19... Start Date: 09/05/19 Stop [...] recent to oldest [Reference Range]: 1 2 3 Height 158 cm (12/03/19 11:58 PM) 158 cm (12/03/19 4:35 AM) Weight 81.9 kg (12/03/19 4:35 AM) 81.9 kg (12/03/19 3:23 AM) Oxygen Saturation [94-100 %] 100 % (12/03/19 5:45 AM) 100 % (12/03/19 5:30 AM) 100 % (12/03/19 5:00 AM) Pulse Rate [55-90 bpm] 63 bpm (12/03/19 11:58 PM) 116 bpm *H* (12/03/19 4:35 AM) 99 bpm *H* (12/03/19 3:24 AM) Body Mass Index [18.5-24.99] 32.81 *>HHI* (12/03/19 4:35 AM) Blood Pressure [90-138/55-84 mm Hg] 122/80mm Hg (12/04/19 4:55 PM) 124/82mm Hg (12/04/19 7:39 AM) 114/67mm Hg (12/03/19 11:58 PM) Respiratory Rate [16-30 br/min] 18 br/min (12/04/19 4:55 PM) 18 br/min (12/04/19 3:32 PM) 18 br/min (12/04/19 3:32 PM) Temperature [96.8-100.4 DegF] 98.7 DegF (12/04/19 4:55 PM) 98.7 DegF (12/04/19 7:39 AM) 98.1 DegF (12/03/19 11:58 PM) Mode of Delivery (Oxygen) Room air (12/03/19 3:24 AM) Blood pressure sites Arm, left (12/03/19 11:58 PM) Arm, left (12/03/19 4:35 AM) Arm, left (12/03/19 3:24 AM) Temperature Route Oral (12/04/19 4:55 PM) Oral (12/04/19 7:39 AM) Axillary (12/03/19 11:58 PM) Dry Weight 81.9 kg (12/03/19 4:35 AM) 81.9 kg (12/03/19 3:23 AM) Weight Obtained Via Standing scale (12/03/19 3:23 AM) Dry Weight Obtained Via Standing scale (12/03/19 3:23 AM) Social History Social History Type Response Tobacco Use: 4 or less cigar ettes(less than 1/4 pack)/day in last 30 days. Sex Female
--- OUTSIDE RECORDS SUMMARY | 2022-10-14 11:23 | XMS_ITS | Continuity of Care Document ---
Author Name Unknown Organization [facility] ter Address [address] [place] [address]- Care Team Providers Care Certified Nurse Practitioner Name Role Phone Edward Magana MD Primary Care Physician Encounter [facility] Date(s): 05/19/19 - 05/19/[address] [address]- [facility] Encounter Diagnosis Incarcerated ventral hernia(Final) - 05/19/19 Discharge Disposition: A-D/C Home Attending Physician: Kana Rocha DO Admitting Physician: Kana Rocha DO Referring Physician: Not on Staff, Referring MD [...] 2 Refills, Maintenance, 03/31/19 12:43:00 EST, Tablet, [facility] #[id number], 1 tablet By Mouth Daily, 158, cm, 08/01/18 9:39:00 EDT, Height, 74, kg, 03/08/18 17:20:00 EST, Dry Weight Start Date: 03/31/19 Status: Ordered promethazine 25 mg oral tablet 1 tablet = 25 mg, By Mouth, 4 times a day, PRN as needed for nausea/vomiting, # 90 tablet, 3 Refills, Maintenance, 05/11/19 13:48:00 EDT, Tablet, [facility] #[id number], 158, cm, 04/10/19 10:17:00 EST, Height, 85.1, [...] new one since delivery(Confirmed) Active 1Managed by [facility], seen twice a month for therapy and once monthly for med management. Patient states well controlled at this time 2hx of bipolar with mental health services - not managed at present 3during pregnancies per pt's hx Vital Signs Most recent to oldest [Reference Range]: 1 2 Oxygen Saturation [94-100 %] 100 % (05/19/19 11:14 AM) 100 % (05/19/19 11:10 AM) Pulse Rate [55-90 bpm] 100 bpm *H* (05/19/19 11:14 AM) 105 bpm *H* (05/19/19 11:10 AM) Blood Pressure [90-138/55-84 mm Hg] 145/ 83mm Hg *H* (05/19/19 11:14 AM) Respiratory Rate [16-30 br/min] 26 br/mi n (05/19/19 11:14 AM) Temperature [96.8-100.4 DegF] 98.1 DegF (05/19/19 11:14 AM) Mode of Delivery (Oxygen) Room air (05/19/19 11:14 AM) Room air (05/19/19 11:10 AM) Blood pressure sites Arm, right (05/19/19 11:14 AM) Temperature Route Oral (05/19/19 11:14 AM) Social History Social History Type Response Tobacco Use: 4 or less cigar ettes(less than 1/4 pack)/day in last 30 days. Other: Cutting down during , smokes one cigarette daily. Sex Female
--- OUTSIDE RECORDS SUMMARY | 2022-10-14 11:23 | XMS_ITS | Continuity of Care Document ---
Author Name Unknown Organization [facility] Address [address] [place] [address]- Care Team Providers Care Refrigeration Installer Name Role Phone Chino SMYTH, Edward Vigil Primary Care Physician Encounter [facility] [place] Date(s): 02/26/21 - 03/28/[address] [address]- Attending Physician: Jenn Self Admitting Physician: AdmtrJenn Referring Physician: [id number] Allergies, Adverse Reactions, Alerts No Known Allergies [...] 3 Refills, Maintenance, 01/07/21 10:31:00 EST, Tablet, [facility] #[id number], Partial fill upon patient request if the [...] does not have an inhaler 2Managed by [facility], seen twice a month for therapy and once monthly for med management. Patient states well controlled at this time 3hx of bipolar with mental health services - not managed at present 4Medical MJ card 5during pregnancies per pt's hx 6currently takes 10 mg suboxone daily through [facility] [address] 7Patient states she is not in [...]
--- OUTSIDE RECORDS SUMMARY | 2022-10-14 11:23 | XMS_ITS | Continuity of Care Document ---
Author Name Unknown Organization [facility] Address [address] [place] [address]- Care Team Providers Care International Relations Teacher Name Role Phone Chino SMYTH, Edward Vigil Primary Care Physician Encounter [facility] Date(s): 01/07/21 - 02/07/[address] [address]- Attending Physician: Not on Staff, Attending MD Allergies, Adverse Reactions, Alerts Substance Reaction [...] 3 Refills, Maintenance, 01/07/21 10:31:00 EST, Tablet, [facility] #[id number], Partial fill upon patient request if the prescription is for a schedule II opioid drug., 1 tablet By Mouth Daily, 158, cm, 10/2... Start Date: 01/07/21 Status: Ordered Suboxone 4 [...] mg suboxone daily through [facility] [address] 7Patient states she is not in [...]
--- OUTSIDE RECORDS SUMMARY | 2022-10-14 11:23 | XMS_ITS | Continuity of Care Document ---
Author Name Unknown Organization [facility] Address [address] [place] [address]- Care Team Providers Care X Ray Physician Name Role Phone Chino SMYTH, Edward Vigil Primary Care Physician [facility] Date[facility]s): 02/12/21 - 03/14/[address] [address]- Allergies, Adverse Reactions, Alerts No Known Allergies [...] 3 Refills, Maintenance, 01/07/21 10:31:00 EST, Tablet, [facility] #[id number], Partial fill upon patient request if the [...] mg suboxone daily through [facility] [address] 7Patient states she is not in [...]
--- OUTSIDE RECORDS SUMMARY | 2022-10-14 11:23 | XMS_ITS | Continuity of Care Document ---
Author Name Unknown Organization [facility] Address [address] [place] [address]- Care Team Providers Care Healthcare Business Analyst Name Role Phone Chino SMYTH, Edward Vigil Primary Care Physician [facility] Date(s): 08/24/19 - 09/23/19 [facility] [address] [address]- [facility] Allergies, Adverse Reactions, Alerts Substance [...] 7 Refills, Maintenance, 06/15/19 15:22:00 EDT, Tablet, [facility] #[id number], 158, cm, 06/15/19 15:06:00 EDT, Height, 85.1, [...] 2 Refills, Maintenance, 03/31/19 12:43:00 EST, Tablet, [facility] #[id number], 1 tablet By Mouth Daily, 158, cm, 08/01/18 9:39:00 EDT, Height, 74, kg, 03/08/18 17:20:00 EST, Dry Weight Start Date: 03/31/19 Status: Ordered promethazine 25 mg oral tablet 1 tablet = 25 mg, By Mouth, 4 times a day, PRN as needed for nausea/vomiting, # 90 tablet, 3 Refills, Maintenance, 05/11/19 13:48:00 EDT, Tablet, [facility] #[id number], 158, cm, 04/10/19 10:17:00 EST, Height, 85.1, [...] 09/05/19 14:31:00 EDT, Route to Pharmacy Electronically, [facility] #[id number], 158, cm, 08/10/19... Start Date: 09/05/19 Stop [...]
--- OUTSIDE RECORDS SUMMARY | 2022-10-14 11:23 | XMS_ITS | Continuity of Care Document ---
Author Name Unknown Organization [facility] Address [address] [place] [address]- Care Team Providers Care Natural Science Curator Name Role Phone Chino SMYTH, Edward Vigil Primary Care Physician [facility] Date(s): 11/20/19 - 12/20/[address] [address]- [facility] Allergies, Adverse Reactions, Alerts Substance [...] 12/04/19 8:15:00 EDT, Route to Pharmacy Electronically, [facility] #[id number], 158, cm, 12/04/19 0:00:00 EDT, [place]... Start Date: 12/04/19 Status: Ordered ibuprofen 800 mg oral tablet 800 mg, 1, tablet, By Mouth, Every 8 hours, PRN, not to exceed 3200 mg/day with food or milk, # 60 tablet, Refills 0, Tot. Refills 0, Maintenance, Pain , Moderate, 12/04/19 8:15:00 EDT, Route to Pharmacy Electronically, [facility] #[id number], 1... Start Date: 12/04/19 Status: Ordered Multivitamins [...] 2 Refills, Maintenance, 03/31/19 12:43:00 EST, Tablet, [facility] #[id number], 1 tablet By Mouth Daily, 158, cm, 08/01/18 9:39:00 EDT, Height, 74, kg, 03/08/18 17:20:00 EST, Dry Weight Start Date: 03/31/19 Status: Ordered promethazine 25 mg oral tablet 1 tablet = 25 mg, By Mouth, 4 times a day, PRN as needed for nausea/vomiting, # 90 tablet, 3 Refills, Maintenance, 05/11/19 13:48:00 EDT, Tablet, [facility] #36198, 158, cm, 04/10/19 10:17:00 EST, Height, 85.1, [...] 09/05/19 14:31:00 EDT, Route to Pharmacy Electronically, [facility] #[id number], 158, cm, 08/10/19... Start Date: 09/05/19 Stop [...]
--- OUTSIDE RECORDS SUMMARY | 2022-10-14 11:23 | XMS_ITS | Continuity of Care Document ---
Author Name Unknown Organization [facility] ter Address [address] [place] [address]- Care Team Providers Care Ribbon Lap Machine Tender Name Role Phone Edward Magana MD Primary Care Physician [place] [facility] [place] Date(s): 09/10/19 - 09/10/[address] [address]- [facility] Discharge Disposition: A-D/C Home Attending Physician: Beronica Islas MD Admitting Physician: Beronica Islas MD Referring Physician: Beronica Islas MD Allergies, Adverse Reactions, Alerts Substance Reaction [...] 7 Refills, Maintenance, 06/15/19 15:22:00 EDT, Tablet, [facility] #[id number], 158, cm, 06/15/19 15:06:00 EDT, Height, 85.1, [...] 2 Refills, Maintenance, 03/31/19 12:43:00 EST, Tablet, [facility] #[id number], 1 tablet By Mouth Daily, 158, cm, 08/01/18 9:39:00 EDT, Height, 74, kg, 03/08/18 17:20:00 EST, Dry Weight Start Date: 03/31/19 Status: Ordered promethazine 25 mg oral tablet 1 tablet = 25 mg, By Mouth, 4 times a day, PRN as needed for nausea/vomiting, # 90 tablet, 3 Refills, Maintenance, 05/11/19 13:48:00 EDT, Tablet, [facility] #03997, 158, cm, 04/10/19 10:17:00 EST, Height, 85.1, [...] 09/05/19 14:31:00 EDT, Route to Pharmacy Electronically, [facility] #[id number], 158, cm, 08/10/19... Start Date: 09/05/19 Stop [...] Discern Expert 4during pregnancies per pt's hx Vital Signs Most recent to oldest [Reference Range]: 1 Weight 82.4 kg (09/10/19 2:08 AM) Oxygen Saturation [94-100 %] 98 % (09/10/19 2:29 AM) Pulse Rate [55-90 bpm] 68 bpm (09/10/19 2:29 AM) Blood Pressure [90-138/55-84 mm Hg] 117/ 64mm Hg (09/10/19 2:29 AM) Respiratory Rate [16-30 br/min] 17 br/mi n (09/10/19 2:29 AM) Temperature [96.8-100.4 DegF] 98.1 DegF (09/10/19 2:08 AM) Mode of Delivery (Oxygen) Room air (09/10/19 2:29 AM) Blood pressure sites Arm, right (09/10/19 2:29 AM) Temperature Route Oral (09/10/19 2:08 AM) Dry Weight 82.4 kg (09/10/19 2:08 AM) Weight Obtained Via Standing scale (09/10/19 2:08 AM) Dry Weight Obtained Via Standing scale (09/10/19 2:08 AM) Social History Social History Type Response Tobacco Use: 4 or less cigar ettes(less than 1/4 pack)/day in last 30 days. Sex Female
--- OUTSIDE RECORDS SUMMARY | 2022-10-14 11:23 | XMS_ITS | Continuity of Care Document ---
Author Name Unknown Organization [facility] Address [address] [place] [address]- Care Team Providers Care Bullet Swaging Machine Operator Name Role Phone Chino SMYTH, Edward Vigil Primary Care Physician [place] [facility] [place] 10/17/19 - 11/16/[address] [address]- [facility] Allergies, Adverse Reactions, Alerts Substance Reaction Severity [...] 7 Refills, Maintenance, 06/15/19 15:22:00 EDT, Tablet, [facility] #[id number], 158, cm, 06/15/19 15:06:00 EDT, Height, 85.1, [...] 2 Refills, Maintenance, 03/31/19 12:43:00 EST, Tablet, [facility] #[id number], 1 tablet By Mouth Daily, 158, cm, 08/01/18 9:39:00 EDT, Height, 74, kg, 03/08/18 17:20:00 EST, Dry Weight Start Date: 03/31/19 Status: Ordered promethazine 25 mg oral tablet 1 tablet = 25 mg, By Mouth, 4 times a day, PRN as needed for nausea/vomiting, # 90 tablet, 3 Refills, Maintenance, 05/11/19 13:48:00 EDT, Tablet, [facility] #[id number], 158, cm, 04/10/19 10:17:00 EST, Height, 85.1, [...] 09/05/19 14:31:00 EDT, Route to Pharmacy Electronically, [facility] #[id number], 158, cm, 08/10/19... Start Date: 09/05/19 Stop [...]
--- OUTSIDE RECORDS SUMMARY | 2022-10-14 11:23 | XMS_ITS | Continuity of Care Document ---
Author Name Unknown Organization [facility] Address [address] [place] [address]- Care Team Providers Care College Or University Registrar Name Role Phone Chino SMYTH, Edward Vigil Primary Care Physician Encounter [facility] Date(s): 01/18/20 - 02/17/[address] [address]- Attending Physician: Admdelores, Carlos8 Admitting Physician: [id number] Referring Physician: Admtr, Ar8 Allergies, Adverse Reactions, Alerts Substance Reaction Severity [...] 12/04/19 8:15:00 EDT, Route to Pharmacy Electronically, [facility] #[id number], 158, cm, 12/04/19 0:00:00 EDT, [place]... Start Date: 12/04/19 Status: Ordered ibuprofen 800 mg oral tablet 800 mg, 1, tablet, By Mouth, Every 8 hours, PRN, not to exceed 3200 mg/day with food or milk, # 60 tablet, Refills 0, Tot. Refills 0, Maintenance, Pain , Moderate, 12/04/19 8:15:00 EDT, Route to Pharmacy Electronically, [facility] #91076, 1... Start Date: 12/04/19 Status: Ordered Multivitamins with Folic Acid 1 mg oral tablet 1 tablet, By Mouth, Daily, # 90 tablet, 2 Refills, Maintenance, 03/31/19 12:43:00 EST, Tablet, [facility] #86357, 1 tablet By Mouth Daily, 158, cm, [...] 3 Refills, Maintenance, 05/11/19 13:48:00 EDT, Tablet, [facility] #50522, 158, cm, 04/10/19 10:17:00 EST, Height, 85.1, [...] 09/05/19 14:31:00 EDT, [id number], 158, cm, 08/10/19... Start Date: 09/05/19 Stop [...]
--- OUTSIDE RECORDS SUMMARY | 2022-10-14 11:23 | XMS_ITS | Continuity of Care Document ---
Author Name Unknown Organization [facility] Address [address] [place] [address]- Care Team Providers Care Hogshead Head Matcher Name Role Phone Chino SMYTH, Edward Vigil Primary Care Physician [facility] Date(s): 06/28/20 - 07/28/[address] [address]- Allergies, Adverse Reactions, Alerts Substance Reaction Severity [...] 12/04/19 8:15:00 EDT, Route to Pharmacy Electronically, [facility] #[id number], 158, cm, 12/04/19 0:00:00 EDT, [place]... Start Date: 12/04/19 Status: Ordered ibuprofen 800 mg oral tablet 800 mg, 1, tablet, By Mouth, Every 8 hours, PRN, not to exceed 3200 mg/day with food or milk, # 60 tablet, Refills 0, Tot. Refills 0, Maintenance, Pain , Moderate, 12/04/19 8:15:00 EDT, Route to Pharmacy Electronically, [facility] #[id number], 1... Start Date: 12/04/19 Status: Ordered Multivitamins with Folic Acid 1 mg oral tablet 1 tablet, By Mouth, Daily, # 90 tablet, 2 Refills, Maintenance, 03/31/19 12:43:00 EST, Tablet, [facility] #[id number], 1 tablet By Mouth Daily, 158, cm, [...] 3 Refills, Maintenance, 05/11/19 13:48:00 EDT, Tablet, [facility] #[id number], 158, cm, 04/10/19 10:17:00 EST, Height, 85.1, [...] 09/05/19 14:31:00 EDT, Route to Pharmacy Electronically, [facility] #[id number], 158, cm, 08/10/19... Start Date: 09/05/19 Stop [...]
--- OUTSIDE RECORDS SUMMARY | 2022-10-14 11:23 | XMS_ITS | Continuity of Care Document ---
Author Name Unknown Organization [facility] Address [address] [place] [address]- Care Team Providers Care Microsoft Dynamics Manager Architect Name Role Phone Chino SMYTH, Edward Vigil Primary Care Physician [facility]): 07[facility]14[facility]19 - [facility] [address] [address]- [facility] Attending Physician: Not on Staff, Attending MD [...] 7 Refills, Maintenance, 06/15/19 15:22:00 EDT, Tablet, [facility] #[id number], 158, cm, 06/15/19 15:06:00 EDT, Height, 85.1, [...] 2 Refills, Maintenance, 03/31/19 12:43:00 EST, Tablet, [facility] #[id number], 1 tablet By Mouth Daily, 158, cm, 08/01/18 9:39:00 EDT, Height, 74, kg, 03/08/18 17:20:00 EST, Dry Weight Start Date: 03/31/19 Status: Ordered promethazine 25 mg oral tablet 1 tablet = 25 mg, By Mouth, 4 times a day, PRN as needed for nausea/vomiting, # 90 tablet, 3 Refills, Maintenance, 05/11/19 13:48:00 EDT, Tablet, [facility] #[id number], 158, cm, 04/10/19 10:17:00 EST, Height, 85.1, kg, 04/10/19 10:17:00 EST, Dry... Start Date: 05/11/19 Status: Ordered Suboxone 4 mg-1 mg sublingual film 1 film, Sublingual, 2 times a day, dissolve under the tongue, 0 Refills, Maintenance, 05/18/19 15:52:00 EDT, Film Start Date: 05/18/19 Status: Ordered Valtrex 1 gm oral tablet 1 tablet = 1 Gm, By Mouth, 2 times a day, for 5 days, take as directed for acute outbreak, then continue with suppresion medication, # 10 tablet, 0 Refills, Acute 09/10/19 14:29:00 EDT, 09/05/19 14:29:00 EDT, Tablet, [facility] #61751, 158,... Start Date: 09/05/19 Stop Date: 09/10/19 Status: Ordered Valtrex 500 mg oral tablet 500 mg, 1, tablet, By Mouth, Every 12 hours, Take as directed for suppression, # 6 tablet, Refills 3, Tot. Refills 3, Acute 09/04/20 14:33:00 EDT, 09/05/19 14:31:00 EDT, Route to Pharmacy Electronically, [facility] #[id number], 455, cm, 08/10/19... Start Date: 09/05/19 Stop Date: [...]
--- OUTSIDE RECORDS SUMMARY | 2022-10-14 11:23 | XMS_ITS | Continuity of Care Document ---
Author Name Unknown Organization [facility] Address [address] [place] [address]- Care Team Providers Care Allied Health Instructor Name Role Phone Chino SMYTH, Edward Vigil Primary Care Physician [facility] Date(s): 09/21/19 - 10/21/19 [facility] [address] [address]- [facility] Allergies, Adverse Reactions, Alerts Substance Reaction Severity [...] 7 Refills, Maintenance, 06/15/19 15:22:00 EDT, Tablet, [facility] #45041, 158, cm, 06/15/19 15:06:00 EDT, Height, 85.1, [...] 2 Refills, Maintenance, 03/31/19 12:43:00 EST, Tablet, [facility] #[id number], 1 tablet By Mouth Daily, 158, cm, 08/01/18 9:39:00 EDT, Height, 74, kg, 03/08/18 17:20:00 EST, Dry Weight Start Date: 03/31/19 Status: Ordered promethazine 25 mg oral tablet 1 tablet = 25 mg, By Mouth, 4 times a day, PRN as needed for nausea/vomiting, # 90 tablet, 3 Refills, Maintenance, 05/11/19 13:48:00 EDT, Tablet, [facility] #[id number], 158, cm, 04/10/19 10:17:00 EST, Height, 85.1, [...] 09/05/19 14:31:00 EDT, Route to Pharmacy Electronically, [facility] #[id number], 158, cm, 08/10/19... Start Date: 09/05/19 Stop [...]
--- OUTSIDE RECORDS SUMMARY | 2022-10-14 11:23 | XMS_ITS | Continuity of Care Document ---
Author Name Unknown Organization [facility] Address [address] [place] [address]- Care Team Providers Care Custodian Blood Bank Name Role Phone Chino SMYTH, Edward Vigil Primary Care Physician [facility] Date(s): 08/12/22 - 09/27/22 [facility] [address] [address]- Attending Physician: Not on Staff, Attending MD [...] 3 Refills, Maintenance, 01/07/21 10:31:00 EST, Tablet, [facility] #[id number], Partial fill upon patient request if the [...] mg suboxone daily through [facility] [address] 7Patient states she is not in [...] Care Team Personnel Name: Hali Kirkpatrick Position: [facility] SOAPING DEPARTMENT SUPERVISOR MD Member Role: [employer] SOAPING DEPARTMENT SUPERVISOR Physician Care Team Related Persons Name: ALEXIS HELLER Address: [employer] Address: home [address] [address] [place] Name: JULIANA DAO Address: [employer] Address: home [address] [place] [address] [place] Name: KIMBERLY DOUGLAS Address: home [address] [place] [address] Name: DORIS JACOBS Address: home [address] [place] [address]
--- OUTSIDE RECORDS SUMMARY | 2022-10-14 11:23 | XMS_ITS | Continuity of Care Document ---
Author Name Unknown Organization [facility] ter Address [address] [place] [address]- Care Team Providers Care Wind Farm Operations Manager Name Role Phone Chino SMYTH, Edward Vigil Primary Care Physician [place] [facility] [place](s): 08/25/19 - 08/25/[address] [address]- [facility] Discharge Disposition: A-D/C Walkout Attending Physician: Not [...] 7 Refills, Maintenance, 06/15/19 15:22:00 EDT, Tablet, [facility] #[id number], 158, cm, 06/15/19 15:06:00 EDT, Height, 85.1, kg, 04/10/19 10:17:00 EST, Dry Weight Start Date: 06/15/19 Status: Ordered nitrofurantoin macrocrystals 100 mg oral capsule 1 capsule = 100 mg, By Mouth, 2 times a day, for 7 days, # 14 capsule, 0 Refills, Acute 08/31/19 16:08:00 EDT, 08/24/19 16:08:00 EDT, Capsule, [facility] #[id number], 158, cm, 08/10/19 13:56:00 EDT, Height, 85.1, kg, 04/10/19 10:17:00 EST, Dry We... Start Date: 08/24/19 Stop Date: 08/31/19 Status: Ordered Multivitamins with Folic Acid 1 mg oral tablet 1 tablet, By Mouth, Daily, # 90 tablet, 3 Refills, Maintenance, 03/23/18 14:58:20 EST, Tablet, 1 tablet By Mouth Daily,x90 days Start Date: 03/23/18 Stop Date: 03/18/19 Status: Ordered Multivitamins with Folic Acid 1 mg oral tablet 1 tablet, By Mouth, Daily, # 90 tablet, 2 Refills, Maintenance, 03/31/19 12:43:00 EST, Tablet, [facility] #[id number], 1 tablet By Mouth Daily, 158, cm, 08/01/18 9:39:00 EDT, Height, 74, kg, 03/08/18 17:20:00 EST, Dry Weight Start Date: 03/31/19 Status: Ordered promethazine 25 mg oral tablet 1 tablet = 25 mg, By Mouth, 4 times a day, PRN as needed for nausea/vomiting, # 90 tablet, 3 Refills, Maintenance, 05/11/19 13:48:00 EDT, Tablet, [facility] #[id number], 158, cm, 04/10/19 10:17:00 EST, Height, 85.1, [...] new one since delivery(Confirmed) Active 1Managed by [facility], seen twice a month for therapy and once monthly for med management. Patient states well controlled at this time 2hx of bipolar with mental health services - not managed at present 3during pregnancies per pt's hx Vital Signs Most recent to oldest [Reference Range]: 1 Oxygen Saturation [94-100 %] 100 % (08/25/19 7:27 AM) Pulse Rate [55-90 bpm] 74 bpm (08/25/19 7:27 AM) Respiratory Rate [16-30 br/min] 22 br/mi n (08/25/19 7:27 AM) Temperature [96.8-100.4 DegF] 97.7 DegF (08/25/19 7:27 AM) Liters per Minute 0 L/min (08/25/19 7:27 AM) Mode of Delivery (Oxygen) Room air (08/25/19 7:27 AM) Temperature Route Oral (08/25/19 7:27 AM) Social History Social History Type Response Tobacco Use: 4 or less cigar ettes(less than 1/4 pack)/day in last 30 days. Other: Cutting down during , smokes one cigarette daily. Sex Female
--- OUTSIDE RECORDS SUMMARY | 2022-10-14 11:23 | XMS_ITS | Continuity of Care Document ---
Author Name Unknown Organization [facility] Address [address] [place] [address]- Care Team Providers Care Diamond Cleaner Name Role Phone Edward Magana MD Primary Care Physician [place] [facility] [place] 05/12/[place] - 06/17/[address] [address]- [facility] Attending Physician: Nannette Lawson MD Admitting Physician: Nannette Lawson MD Referring Physician: Nannette Lawson MD Allergies, Adverse Reactions, Alerts Substance Reaction [...] 7 Refills, Maintenance, 06/15/19 15:22:00 EDT, Tablet, [facility] #[id number], 158, cm, 06/15/19 15:06:00 EDT, Height, 85.1, [...] 2 Refills, Maintenance, 03/31/19 12:43:00 EST, Tablet, [facility] #[id number], 1 tablet By Mouth Daily, 158, cm, 08/01/18 9:39:00 EDT, Height, 74, kg, 03/08/18 17:20:00 EST, Dry Weight Start Date: 03/31/19 Status: Ordered promethazine 25 mg oral tablet 1 tablet = 25 mg, By Mouth, 4 times a day, PRN as needed for nausea/vomiting, # 90 tablet, 3 Refills, Maintenance, 05/11/19 13:48:00 EDT, Tablet, [facility] #[id number], 158, cm, 04/10/19 10:17:00 EST, Height, 85.1, [...]
--- OUTSIDE RECORDS SUMMARY | 2022-10-14 11:23 | XMS_ITS | Continuity of Care Document ---
Author Name Unknown Organization [facility] Address [address] [place] [address]- Care Team Providers Care Steam Station Supervisor Name Role Phone Chino SMYTH, Edward Vigil Primary Care Physician [facility] Date(s): 11/14/19 - 12/14/[address] [address]- [facility] Allergies, Adverse Reactions, Alerts Substance Reaction [...] 12/04/19 8:15:00 EDT, Route to Pharmacy Electronically, [facility] #[id number], 158, cm, 12/04/19 0:00:00 EDT, Heig... Start Date: 12/04/19 Status: Ordered ibuprofen 800 mg oral tablet 800 mg, 1, tablet, By Mouth, Every 8 hours, PRN, not to exceed 3200 mg/day with food or milk, # 60 tablet, Refills 0, Tot. Refills 0, Maintenance, Pain , Moderate, 12/04/19 8:15:00 EDT, Route to Pharmacy Electronically, [facility] #[id number], 1... Start Date: 12/04/19 Status: Ordered Multivitamins [...] 2 Refills, Maintenance, 03/31/19 12:43:00 EST, Tablet, [facility] #[id number], 1 tablet By Mouth Daily, 158, cm, 08/01/18 9:39:00 EDT, Height, 74, kg, 03/08/18 17:20:00 EST, Dry Weight Start Date: 03/31/19 Status: Ordered promethazine 25 mg oral tablet 1 tablet = 25 mg, By Mouth, 4 times a day, PRN as needed for nausea/vomiting, # 90 tablet, 3 Refills, Maintenance, 05/11/19 13:48:00 EDT, Tablet, [facility] #[id number], 158, cm, 04/10/19 10:17:00 EST, Height, 85.1, [...] 09/05/19 14:31:00 EDT, Route to Pharmacy Electronically, [facility] #[id number], 067, cm, 08/10/19... Start Date: 09/05/19 Stop Date: [...]
--- OUTSIDE RECORDS SUMMARY | 2022-10-14 11:23 | XMS_ITS | Continuity of Care Document ---
Author Name Unknown Organization [facility] ter Address [address] [place] [address]- Care Team Providers Care Math And Science Instructor Name Role Phone Edward Magana MD Primary Care Physician Encounter [facility] [place] Date(s): 09/10/19 - 09/10/[address] [address] [facility] Discharge Disposition: A-D/C Walkout Attending Physician: Not [...] 7 Refills, Maintenance, 06/15/19 15:22:00 EDT, Tablet, [facility] #[id number], 158, cm, 06/15/19 15:06:00 EDT, Height, 85.1, [...] 2 Refills, Maintenance, 03/31/19 12:43:00 EST, Tablet, [facility] #08425, 1 tablet By Mouth Daily, 158, cm, 08/01/18 9:39:00 EDT, Height, 74, kg, 03/08/18 17:20:00 EST, Dry Weight Start Date: 03/31/19 Status: Ordered promethazine 25 mg oral tablet 1 tablet = 25 mg, By Mouth, 4 times a day, PRN as needed for nausea/vomiting, # 90 tablet, 3 Refills, Maintenance, 05/11/19 13:48:00 EDT, Tablet, [facility] #75655, 158, cm, 04/10/19 10:17:00 EST, Height, 85.1, [...] 09/05/19 14:31:00 EDT, Route to Pharmacy Electronically, [facility] #[id number], 158, cm, 08/10/19... Start Date: 09/05/19 Stop [...] new one since delivery(Confirmed) Active 1Managed by [facility], seen twice a month for therapy and once monthly for med management. Patient states well controlled at this time 2hx of bipolar with mental health services - not managed at present 3Problem added by Discern Expert 4during pregnancies per pt's hx Vital Signs Most recent to oldest [Reference Range]: 1 2 Oxygen Saturation [94-100 %] 97 % (09/10/19 1:30 AM) 99 % (09/10/19 1:22 AM) Pulse Rate [55-90 bpm] 72 bpm (09/10/19 1:30 AM) 72 bpm (09/10/19 1:22 AM) Blood Pressure [90-138/55-84 mm Hg] 127/ 81mm Hg (09/10/19 1:30 AM) 116/66mm Hg (09/10/19 1:22 AM) Respiratory Rate [16-30 br/min] 16 br/mi n (09/10/19 1:30 AM) 16 br/min (09/10/19 1:22 AM) Temperature [96.8-100.4 DegF] 98 DegF (09/10/19 1:30 AM) 98.0 DegF (09/10/19 1:22 AM) Mode of Delivery (Oxygen) Nasal cannula (09/10/19 1:30 AM) Room air (09/10/19 1:22 AM) Blood pressure sites Arm, right (09/10/19 1:30 AM) Temperature Route Oral (09/10/19 1:30 AM) Oral (09/10/19 1:22 AM) Social History Social History Type Response Tobacco Use: 4 or less cigar ettes(less than 1/4 pack)/day in last 30 days. Sex Female
--- OUTSIDE RECORDS SUMMARY | 2022-10-14 11:23 | XMS_ITS | Continuity of Care Document ---
Author Name Unknown Organization [facility] Garimarachel Lloyd n's [facility] Address [address], [address] [place] [address]- Care Team Providers Care Board Runner Name Role Phone Chino SMYTH, Edward Vigil Primary Care Physician En[facility] [place] Date(s): 01/27/21 - 02/26/21 [facility] Garima E[facility] [address] [place], [place] [address] Allergies, Adverse Reactions, Alerts Substance Reaction Severity [...] 3 Refills, Maintenance, 01/07/21 10:31:00 EST, Tablet, [facility] #[id number], Partial fill upon patient request if the prescription is for a schedule II opioid drug., 1 tablet By Mouth Daily, 158, cm, 2... Start Date: 01/07/21 Status: Ordered Suboxone 4 [...] does not have an inhaler 2Managed by [place], seen twice a month for therapy and once monthly for med management. Patient states well controlled at this time 3hx of bipolar with mental health services - not managed at present 4Medical MJ card 5during pregnancies per pt's hx 6currently takes 10 mg suboxone daily through [facility] on [address] 7Patient states she is not in [...]
--- OUTSIDE RECORDS SUMMARY | 2022-10-14 11:23 | XMS_ITS | Continuity of Care Document ---
Author Name Unknown Organization [facility] Address [address] [place] [address]- Care Team Providers Care Casting Wheel Operator Helper Name Role Phone Edward Magana MD Primary Care Physician [id number] Date(s[facility] 12/04/19 - 02/17/[address] [address]- Attending Physician: Melissa Lobo MD Admitting Physician: [...] 12/04/19 8:15:00 EDT, Route to Pharmacy Electronically, [facility] #[id number], 158, cm, 12/04/19 0:00:00 EDT, [place]... Start Date: 12/04/19 Status: Ordered ibuprofen 800 mg oral tablet 800 mg, 1, tablet, By Mouth, Every 8 hours, PRN, not to exceed 3200 mg/day with food or milk, # 60 tablet, Refills 0, Tot. Refills 0, Maintenance, Pain , Moderate, 12/04/19 8:15:00 EDT, Route to Pharmacy Electronically, [facility] #[id number], 1... Start Date: 12/04/19 Status: Ordered Multivitamins with Folic Acid 1 mg oral tablet 1 tablet, By Mouth, Daily, # 90 tablet, 2 Refills, Maintenance, 03/31/19 12:43:00 EST, Tablet, [facility] #[id number], 1 tablet By Mouth Daily, 158, cm, [...] 3 Refills, Maintenance, 05/11/19 13:48:00 EDT, Tablet, [facility] #[id number], 158, cm, 04/10/19 10:17:00 EST, Height, 85.1, [...] 09/05/19 14:31:00 EDT, [id number], 158, cm, 08/10/19... Start Date: 09/05/19 Stop [...]
--- OUTSIDE RECORDS SUMMARY | 2022-10-14 11:23 | XMS_ITS | Continuity of Care Document ---
Author Name Unknown Organization [facility] Address [address] [place] [address]- Care Team Providers Care Fee Clerk Name Role Phone Chino SMYTH, Edward Vigil Primary Care Physician [place] [facility] [place] Date(s): 05/18/19 - 05/28/19 [facility] [address] [place] [address] [facility] Attending Physician: Carlos Self8 Admitting Physician: AdmJenn estrella Referring Physician: AdmtrJenn Allergies, Adverse Reactions, Alerts Substance Reaction Severity [...] 2 Refills, Maintenance, 03/31/19 12:43:00 EST, Tablet, [facility] #[id number], 1 tablet By Mouth Daily, 158, cm, 08/01/18 9:39:00 EDT, Height, 74, kg, 03/08/18 17:20:00 EST, Dry Weight Start Date: 03/31/19 Status: Ordered promethazine 25 mg oral tablet 1 tablet = 25 mg, By Mouth, 4 times a day, PRN as needed for nausea/vomiting, # 90 tablet, 3 Refills, Maintenance, 05/11/19 13:48:00 EDT, Tablet, [facility] #[id number], 158, cm, 04/10/19 10:17:00 EST, Height, 85.1, [...] new one since delivery(Confirmed) Active 1Managed by [place], seen twice a month for therapy and [...]
--- OUTSIDE RECORDS SUMMARY | 2022-10-14 11:23 | XMS_ITS | Continuity of Care Document ---
Author Name Unknown Organization [facility] Address [address] [place] [address]- Care Team Providers Care Small Wind Energy Installer Name Role Phone Chino SMYTH, Edward Vigil Primary Care Physician Encounter [facility] [place] Date(s): 10/24/19 - 11/23/[address] [address]- [facility] Allergies, Adverse Reactions, Alerts Substance Reaction [...] 7 Refills, Maintenance, 06/15/19 15:22:00 EDT, Tablet, [facility] #[id number], 158, cm, 06/15/19 15:06:00 EDT, Height, 85.1, [...] 2 Refills, Maintenance, 03/31/19 12:43:00 EST, Tablet, [facility] #[id number], 1 tablet By Mouth Daily, 158, cm, 08/01/18 9:39:00 EDT, Height, 74, kg, 03/08/18 17:20:00 EST, Dry Weight Start Date: 03/31/19 Status: Ordered promethazine 25 mg oral tablet 1 tablet = 25 mg, By Mouth, 4 times a day, PRN as needed for nausea/vomiting, # 90 tablet, 3 Refills, Maintenance, 05/11/19 13:48:00 EDT, Tablet, [facility] #[id number], 158, cm, 04/10/19 10:17:00 EST, Height, 85.1, [...] 09/05/19 14:31:00 EDT, Route to Pharmacy Electronically, [facility] #[id number], 158, cm, 08/10/19... Start Date: 09/05/19 Stop [...]
--- OUTSIDE RECORDS SUMMARY | 2022-10-14 11:23 | XMS_ITS | Continuity of Care Document ---
Author Name Unknown Organization [facility] Address [address] [place] [address]- Care Team Providers Care Ramp Supervisor Name Role Phone Chino SMYTH, Edward Vigil Primary Care Physician [place] [facility] [place] 10/16/19 - 11/15/[address] [address] [facility] Allergies, Adverse Reactions, Alerts Substance Reaction Severity [...] 7 Refills, Maintenance, 06/15/19 15:22:00 EDT, Tablet, [facility] #[id number], 158, cm, 06/15/19 15:06:00 EDT, Height, 85.1, [...] 2 Refills, Maintenance, 03/31/19 12:43:00 EST, Tablet, [facility] #[id number], 1 tablet By Mouth Daily, 158, cm, 08/01/18 9:39:00 EDT, Height, 74, kg, 03/08/18 17:20:00 EST, Dry Weight Start Date: 03/31/19 Status: Ordered promethazine 25 mg oral tablet 1 tablet = 25 mg, By Mouth, 4 times a day, PRN as needed for nausea/vomiting, # 90 tablet, 3 Refills, Maintenance, 05/11/19 13:48:00 EDT, Tablet, [facility] #[id number], 158, cm, 04/10/19 10:17:00 EST, Height, 85.1, [...] 09/05/19 14:31:00 EDT, Route to Pharmacy Electronically, [facility] #[id number], 158, cm, 08/10/19... Start Date: 09/05/19 Stop [...]
--- OUTSIDE RECORDS SUMMARY | 2022-10-14 11:23 | XMS_ITS | Continuity of Care Document ---
Author Name Unknown Organization [facility] Address [address] [place] [address]- Care Team Providers Care Conference Reservationist Name Role Phone Chino SMYTH, Edward Vigil Primary Care Physician [place] [facility] [place] Date(s): 09/10/22 - 09/17/22 [facility] [address] [place] [address]- Attending Physician: Not on Staff, Attending MD Referring Physician: Amaya Vela MD Allergies, Adverse Reactions, Alerts No Known Allergies Immunizations Given and Recorded Vaccine Date Status Refusal Reason influenza virus vaccine, inactivated 12/03/19 Give n influenza virus vaccine, inactivated 04/10/19 Give n influenza virus vaccine, inactivated 11/23/17 Give n tetanus/diphtheria/pertussis, acel(Tdap) 09/07/19 Given tetanus/diphtheria/pertussis, acel(Tdap) 12/24/17 Given tetanus/diphtheria/pertussis, acel(Tdap) 07/24/13 Given Medications amoxicillin-clavulanate 875 mg-125 mg oral tablet 1 tablet, By Mouth, Every 12 hours, for 7 days, # 14 tablet, 0 Refills, Acute 09/21/22 9:15:00 EDT,09/14/22 9:15:00 EDT, Tablet, [facility] #[id number], Partial fill upon patient request if theprescription is for a schedule II opioid drug., 158... Start Date: 09/14/22 Stop Date: 09/21/22 Status: Ordered clotrimazole 1% topical cream 1 application, Topically, Daily at bedtime, for 7 days, # 60 Gm, 0 Refills, Acute 09/19/22 9:57:00 EDT, 09/12/22 9:57:00 EDT, Cream, [facility] #[id number], Partial fill upon patient request if the prescription is for a schedule II opioid drug.,... Start Date: 09/12/22 Stop Date: 09/19/22 Status: Ordered Macrobid macrocrystals-monohydrate 100 mg oral capsule 1 capsule = 100 mg, By Mouth, 2 times a day, for 7 days, # 14 capsule, 0 Refills, Acute 09/19/22 9:53:00 EDT, 09/12/22 9:53:00 EDT, Capsule, [facility] #[id number], Partial fill upon patient request if the prescription is for a schedule II opioid... Start Date: 09/12/22 Stop Date: 09/19/22 Status: Ordered Multivitamins with Folic Acid 1 mg oral tablet 1 tablet, By Mouth, Daily, # 90 tablet, 3 Refills, Maintenance, 01/07/21 10:31:00 EST, Tablet, [facility] #[id number], Partial fill upon patient request if the [...] does not have an inhaler 2Managed by [place], seen twice a month for therapy and once monthly for med management. Patient states well controlled at this time 3hx of bipolar with mental health services - not managed at present 4Medical MJ card 5during pregnancies per pt's hx 6currently takes 10 mg suboxone daily through [facility] [address] 7Patient states she is not in [...] she currently smokes 1 cigarette daily.Declines NRT. Vital Signs Most recent to oldest [Reference Range]: 1 Height 158 cm (09/10/22 10:20 AM) Social History Social History Type Response Smoking Status Former smoker, quit more than 30 days ago; Other: Quit 10 days ago, was smoking 5/day; entered on: 09/10/22 Sex Female Patient Care team information Care Team Personnel Name: Hali Kirkpatrick Position: [facility] POULTRY SCIENTIST MD Member Role: Lifetime POULTRY SCIENTIST Physician Care Team Related Persons Name: ALEXIS HELLER Address: [employer] Address: home [address] [address] [place] Name: JULIANA DAO Address: [employer] Address: home [address] [facility] [address] [place] [address] [place] Name: KIMBERLY DOUGLAS Address: home [address] [place] [address] Name: DORIS JACOBS Address: home [address] [place] [address]
--- OUTSIDE RECORDS SUMMARY | 2022-10-14 11:23 | XMS_ITS | Continuity of Care Document ---
Author Name Unknown Organization [facility] Address [address] [place] [address]- Care Team Providers Care Underwriter Name Role Phone Chino SMYTH, Edward Vigil Primary Care Physician [place] [facility] [place] Date(s): 05/06/19 - 06/11/[address] [address]- [facility] Attending Physician: Nannette Lawson MD Admitting Physician: Nannette Lawson MD Referring Physician: Cyndee Lobo EDD Allergies, Adverse Reactions, Alerts Substance Reaction Severity [...] 2 Refills, Maintenance, 03/31/19 12:43:00 EST, Tablet, [facility] #[id number], 1 tablet By Mouth Daily, 158, cm, 08/01/18 9:39:00 EDT, Height, 74, kg, 03/08/18 17:20:00 EST, Dry Weight Start Date: 03/31/19 Status: Ordered promethazine 25 mg oral tablet 1 tablet = 25 mg, By Mouth, 4 times a day, PRN as needed for nausea/vomiting, # 90 tablet, 3 Refills, Maintenance, 05/11/19 13:48:00 EDT, Tablet, [facility] #[id number], 158, cm, 04/10/19 10:17:00 EST, Height, 85.1, [...] new one since delivery(Confirmed) Active 1Managed by [place], seen twice a month for therapy and [...]
--- OUTSIDE RECORDS SUMMARY | 2022-10-14 11:23 | XMS_ITS | Continuity of Care Document ---
Author Name Unknown Organization [facility] Address [address] [place] [address]- Care Team Providers Care Metal Fabricator Apprentice Name Role Phone Chino SMYTH, Edward Vigil Primary Care Physician [facility] Date(s): 08/25/19 - 08/25/[address] [address] Discharge Disposition: A-D/C Home Attending Physician: Elijah Barbosa MD Admitting Physician: Elijah Barbosa MD Referring Physician: Elijah Barbosa MD Allergies, Adverse Reactions, Alerts Substance Reaction [...] 7 Refills, Maintenance, 06/15/19 15:22:00 EDT, Tablet, [facility] #[id number], 158, cm, 06/15/19 15:06:00 EDT, Height, 85.1, kg, 04/10/19 10:17:00 EST, Dry Weight Start Date: 06/15/19 Status: Ordered nitrofurantoin macrocrystals 100 mg oral capsule 1 capsule = 100 mg, By Mouth, 2 times a day, for 7 days, # 14 capsule, 0 Refills, Acute 08/31/19 16:08:00 EDT, 08/24/19 16:08:00 EDT, Capsule, [facility] #[id number], 158, cm, 08/10/19 13:56:00 EDT, Height, 85.1, [...] 2 Refills, Maintenance, 03/31/19 12:43:00 EST, Tablet, [facility] #[id number], 1 tablet By Mouth Daily, 158, cm, 08/01/18 9:39:00 EDT, Height, 74, kg, 03/08/18 17:20:00 EST, Dry Weight Start Date: 03/31/19 Status: Ordered promethazine 25 mg oral tablet 1 tablet = 25 mg, By Mouth, 4 times a day, PRN as needed for nausea/vomiting, # 90 tablet, 3 Refills, Maintenance, 05/11/19 13:48:00 EDT, Tablet, [facility] #[id number], 158, cm, 04/10/19 10:17:00 EST, Height, 85.1, [...] recent to oldest [Reference Range]: 1 Weight 79.1 kg (08/25/19 8:00 AM) Oxygen Saturation [94-100 %] 100 % (08/25/19 8:00 AM) Pulse Rate [55-90 bpm] 73 bpm (08/25/19 8:00 AM) Blood Pressure [90-138/55-84 mm Hg] 120/ 71mm Hg (08/25/19 8:00 AM) Respiratory Rate [16-30 br/min] 18 br/mi n (08/25/19 8:00 AM) Temperature [96.8-100.4 DegF] 98.7 DegF (08/25/19 8:00 AM) Mode of Delivery (Oxygen) Room air (08/25/19 8:00 AM) Blood pressure sites Arm, right (08/25/19 8:00 AM) Temperature Route Oral (08/25/19 8:00 AM) Dry Weight 79.1 kg (08/25/19 8:00 AM) Weight Obtained Via Standing scale (08/25/19 8:00 AM) Dry Weight Obtained Via Standing scale (08/25/19 8:00 AM) Social History Social History Type Response Tobacco Use: 4 or less cigar ettes(less than 1/4 pack)/day in last 30 days. Other: Cutting down during , smokes one cigarette daily. Sex Female
--- OUTSIDE RECORDS SUMMARY | 2022-10-14 11:23 | XMS_ITS | Continuity of Care Document ---
Author Name Unknown Organization [facility] Address [address] [place] [address]- Care Team Providers Care Drying Can Worker Name Role Phone Chino SMYTH, Edward Vigil Primary Care Physician [place] [facility] [place] Date(s): 10/24/19 - 11/23/[address] [address]- [facility] Allergies, Adverse Reactions, Alerts Substance Reaction [...] 7 Refills, Maintenance, 06/15/19 15:22:00 EDT, Tablet, [facility] #[id number], 158, cm, 06/15/19 15:06:00 EDT, Height, 85.1, [...] 2 Refills, Maintenance, 03/31/19 12:43:00 EST, Tablet, [facility] #[id number], 1 tablet By Mouth Daily, 158, cm, 08/01/18 9:39:00 EDT, Height, 74, kg, 03/08/18 17:20:00 EST, Dry Weight Start Date: 03/31/19 Status: Ordered promethazine 25 mg oral tablet 1 tablet = 25 mg, By Mouth, 4 times a day, PRN as needed for nausea/vomiting, # 90 tablet, 3 Refills, Maintenance, 05/11/19 13:48:00 EDT, Tablet, [facility] #[id number], 158, cm, 04/10/19 10:17:00 EST, Height, 85.1, [...] 09/05/19 14:31:00 EDT, Route to Pharmacy Electronically, [facility] #[id number], 158, cm, 08/10/19... Start Date: 09/05/19 Stop [...]
--- OUTSIDE RECORDS SUMMARY | 2022-10-14 11:23 | XMS_ITS | Continuity of Care Document ---
Author Name Unknown Organization [facility] Address [address] [place] [address]- Care Team Providers Care Engine Test Cell Technician Name Role Phone Chino SMYTH, Edward Vigil Primary Care Physician Encounter [facility] Date(s): 09/11/22 - 10/11/22 [facility] [address] [address]- Allergies, Adverse Reactions, Alerts No Known Allergies [...] 3 Refills, Maintenance, 01/07/21 10:31:00 EST, Tablet, [facility] #[id number], Partial fill upon patient request if the [...] mg suboxone daily through [facility] [address] 7Patient states she is not in [...] Care Team Personnel Name: Hali Kirkpatrick Position: [facility] COMPUTER SYSTEMS MANAGER MD Member Role: Lifetime COMPUTER SYSTEMS MANAGER Physician Care Team Related Persons Name: ALEXIS HELLER Address: [employer] Address: home [address] [place] [address] [place] Name: JULIANA DAO Address: [employer] Address: home [address] [place] [address] [place] Name: KIMBERLY DOUGLAS Address: home [address] [place] [address] Name: DORIS JACOBS Address: home [address] [place] [address]
--- OUTSIDE RECORDS SUMMARY | 2022-10-14 11:23 | XMS_ITS | Continuity of Care Document ---
Author Name Unknown Organization [facility] Address [address] [place] [address]- Care Team Providers Care Admission Liaison Name Role Phone Edward Magana MD Primary Care Physician Encounter [facility] [place] Date(s): 02/11/21 - 03/13/[address] [address] Attending Physician: Admtr, Ar8 Admitting Physician: Admtr, Ar8 Referring Physician: Admtr, Ar8 Allergies, Adverse Reactions, Alerts No Known Allergies [...] 3 Refills, Maintenance, 01/07/21 10:31:00 EST, Tablet, [facility] #[id number], Partial fill upon patient request if the [...] mg suboxone daily through [facility] [address] 7Patient states she is not in [...]
--- OUTSIDE RECORDS SUMMARY | 2022-10-14 11:23 | XMS_ITS | Continuity of Care Document ---
Author Name Unknown Organization [facility] Address [address] [place] [address]- Care Team Providers Care Core Blower Name Role Phone Chino SMYTH, Edward Vigil Primary Care Physician Encounter [facility] Date(s): 10/31/19 - 11/30/19 [facility] [address] [address]- [facility] Allergies, Adverse Reactions, Alerts Substance Reaction Severity [...] 7 Refills, Maintenance, 06/15/19 15:22:00 EDT, Tablet, [facility] #[id number], 158, cm, 06/15/19 15:06:00 EDT, Height, 85.1, [...] 2 Refills, Maintenance, 03/31/19 12:43:00 EST, Tablet, [facility] #[id number], 1 tablet By Mouth Daily, 158, cm, 08/01/18 9:39:00 EDT, Height, 74, kg, 03/08/18 17:20:00 EST, Dry Weight Start Date: 03/31/19 Status: Ordered promethazine 25 mg oral tablet 1 tablet = 25 mg, By Mouth, 4 times a day, PRN as needed for nausea/vomiting, # 90 tablet, 3 Refills, Maintenance, 05/11/19 13:48:00 EDT, Tablet, [facility] #[id number], 158, cm, 04/10/19 10:17:00 EST, Height, 85.1, [...] 09/05/19 14:31:00 EDT, Route to Pharmacy Electronically, [facility] #[id number], 158, cm, 08/10/19... Start Date: 09/05/19 Stop [...]
--- OUTSIDE RECORDS SUMMARY | 2022-10-14 11:23 | XMS_ITS | Continuity of Care Document ---
Author Name Unknown Organization [facility] Address [address] [place] [address]- Care Team Providers Care Primary Montessori Teacher Name Role Phone Chino SMYTH, Edwrad Vigil Primary Care Physician Encounter [facility] Date(s): 08/24/22 - 09/23/22 [facility] [address] [address]- Allergies, Adverse Reactions, Alerts No Known Allergies [...] 3 Refills, Maintenance, 01/07/21 10:31:00 EST, Tablet, [facility] #[id number], Partial fill upon patient request if the [...] mg suboxone daily through [facility] [address] 7Patient states she is not in [...] Care Team Personnel Name: Hali Kirkpatrick Position: [facility] CASTER HELPER MD Member Role: Lifetime CASTER HELPER Physician Care Team Related Persons Name: ALEXIS HELLER Address: [employer] Address: home [address] [place] [address] [place] Name: JULIANA DAO Address: [employer] Address: home [address] [place] [address] [place] Name: KIMBERLY DOUGLAS Address: home [address] [place] [address] Name: DORIS JACOBS Address: home [address] [place] [address]
--- OUTSIDE RECORDS SUMMARY | 2022-10-14 11:23 | XMS_ITS | Continuity of Care Document ---
Author Name Unknown Organization [facility] Address [address] [place] [address]- Care Team Providers Care Billing And Accounting Staff Assistant Name Role Phone Chino SMYTH, Edward Vigil Primary Care Physician Encounter [facility] Date(s): 05/17/20 - 06/16/[address] [address]- Allergies, Adverse Reactions, Alerts Substance Reaction Severity [...] 12/04/19 8:15:00 EDT, Route to Pharmacy Electronically, [facility] #[id number], 158, cm, 12/04/19 0:00:00 EDT, [place]... Start Date: 12/04/19 Status: Ordered ibuprofen 800 mg oral tablet 800 mg, 1, tablet, By Mouth, Every 8 hours, PRN, not to exceed 3200 mg/day with food or milk, # 60 tablet, Refills 0, Tot. Refills 0, Maintenance, Pain , Moderate, 12/04/19 8:15:00 EDT, Route to Pharmacy Electronically, [facility] #[id number], 1... Start Date: 12/04/19 Status: Ordered Multivitamins with Folic Acid 1 mg oral tablet 1 tablet, By Mouth, Daily, # 90 tablet, 2 Refills, Maintenance, 03/31/19 12:43:00 EST, Tablet, [facility] #[id number], 1 tablet By Mouth Daily, 158, cm, [...] 3 Refills, Maintenance, 05/11/19 13:48:00 EDT, Tablet, [facility] #[id number], 158, cm, 04/10/19 10:17:00 EST, Height, 85.1, [...] 09/05/19 14:31:00 EDT, Route to Pharmacy Electronically, [facility] #[id number], 158, cm, 08/10/19... Start Date: 09/05/19 Stop [...]
--- OUTSIDE RECORDS SUMMARY | 2022-10-14 11:23 | XMS_ITS | Continuity of Care Document ---
Author Name Unknown Organization [facility] Address [address] [place] [address]- Care Team Providers Care Concrete Bucket Loader Name Role Phone Edward Magana MD Primary Care Physician Encounter [facility] [place] Date(s): 04/10/19 - 06/03/[address] [address]- [facility] Attending Physician: Melissa Lobo [...] 2 Refills, Maintenance, 03/31/19 12:43:00 EST, Tablet, [facility] #42224, 1 tablet By Mouth Daily, 158, cm, 08/01/18 9:39:00 EDT, Height, 74, kg, 03/08/18 17:20:00 EST, Dry Weight Start Date: 03/31/19 Status: Ordered promethazine 25 mg oral tablet 1 tablet = 25 mg, By Mouth, 4 times a day, PRN as needed for nausea/vomiting, # 90 tablet, 3 Refills, Maintenance, 05/11/19 13:48:00 EDT, Tablet, [facility] #52773, 158, cm, 04/10/19 10:17:00 EST, Height, 85.1, [...] new one since delivery(Confirmed) Active 1Managed by [place], seen twice a month for therapy and [...]
--- OUTSIDE RECORDS SUMMARY | 2022-10-14 11:23 | XMS_ITS | Continuity of Care Document ---
Author Name Unknown Organization [facility] Address [address] [place] [address]- Care Team Providers Care Compression Molding Machine Tender Name Role Phone Chino SMYTH, Edward Vigil Primary Care Physician Encounter [facility] [place] Date(s): 04/10/19 - 05/27/[address] [address]- [facility] Attending Physician: Not on Staff, Attending MD Referring Physician: Edward Magana MD Allergies, [...] 2 Refills, Maintenance, 03/31/19 12:43:00 EST, Tablet, [facility] #[id number], 1 tablet By Mouth Daily, 158, cm, 08/01/18 9:39:00 EDT, Height, 74, kg, 03/08/18 17:20:00 EST, Dry Weight Start Date: 03/31/19 Status: Ordered promethazine 25 mg oral tablet 1 tablet = 25 mg, By Mouth, 4 times a day, PRN as needed for nausea/vomiting, # 90 tablet, 3 Refills, Maintenance, 05/11/19 13:48:00 EDT, Tablet, [facility] #[id number], 158, cm, 04/10/19 10:17:00 EST, Height, 85.1, [...] new one since delivery(Confirmed) Active 1Managed by [place], seen twice a month for therapy and [...]
--- OUTSIDE RECORDS SUMMARY | 2022-10-14 11:23 | XMS_ITS | Continuity of Care Document ---
Author Name Unknown Organization [facility] Address [address] [place] [address]- Care Team Providers Care Information Assurance Officer Name Role Phone Chino SMYTH, Edward Vigil Primary Care Physician Encounter [facility] Date(s): 09/10/22 - 10/10/22 [facility] [address] [place] [address]- Attending Physician: Jenn Self Admitting Physician: AdmJenn estrella Referring Physician: AdmtrJenn Allergies, Adverse Reactions, Alerts No Known Allergies [...] 3 Refills, Maintenance, 01/07/21 10:31:00 EST, Tablet, [facility] #[id number], Partial fill upon patient request if the [...] does not have an inhaler 2Managed by [facility], seen twice a month for therapy and once monthly for med management. Patient states well controlled at this time 3hx of bipolar with mental health services - not managed at present 4Medical MJ card 5during pregnancies per pt's hx 6currently takes 10 mg suboxone daily through [facility] on [address] 7Patient states she is not in therapy or on medications at this time. States she is on a waitlist for counseling. States currently stable and feels well. Accepts [facility] consult. 8Pt quit 10 days ago, was [...] Care Team Personnel Name: Hali Kirkpatrick Position: [facility] AUTOMOTIVE PROJECT ENGINEER MD Member Role: [employer] AUTOMOTIVE PROJECT ENGINEER Physician Care Team Related Persons Name: ALEXIS HELLER Address: [employer] Address: home [address] [place] [address] [place] Name: JULIANA DAO Address: [employer] Address: home [address] [place] [address] [place] Name: KIMBERLY DOUGLAS Address: home [address] [place] [address] Name: DORIS JACOBS Address: home [address] [id number]
--- OUTSIDE RECORDS SUMMARY | 2022-10-14 11:23 | XMS_ITS | Continuity of Care Document ---
Author Name Unknown Organization [facility] Address [address] [place] [address]- Care Team Providers Care Regional Climate Change Analyst Name Role Phone Chino SMYTH, Edward Vigil Primary Care Physician Encounter [facility] [place] Date(s): 11/23/19 - 11/23/[address] [address]- [facility] Discharge Disposition: A-D/C Home Attending Physician: Abimbola Lutz MD Admitting Physician: Abimbola Lutz MD Referring Physician: Abimbola Lutz MD Allergies, Adverse Reactions, Alerts Substance Reaction [...] 7 Refills, Maintenance, 06/15/19 15:22:00 EDT, Tablet, [facility] #[id number], 158, cm, 06/15/19 15:06:00 EDT, Height, 85.1, [...] 2 Refills, Maintenance, 03/31/19 12:43:00 EST, Tablet, [facility] #[id number], 1 tablet By Mouth Daily, 158, cm, 08/01/18 9:39:00 EDT, Height, 74, kg, 03/08/18 17:20:00 EST, Dry Weight Start Date: 03/31/19 Status: Ordered promethazine 25 mg oral tablet 1 tablet = 25 mg, By Mouth, 4 times a day, PRN as needed for nausea/vomiting, # 90 tablet, 3 Refills, Maintenance, 05/11/19 13:48:00 EDT, Tablet, [facility][id number], 158, cm, 04/10/19 10:17:00 EST, Height, 85.1, [...] 09/05/19 14:31:00 EDT, Route to Pharmacy Electronically, [facility] #[id number], 158, cm, 08/10/19... Start Date: 09/05/19 Stop [...] recent to oldest [Reference Range]: 1 Weight 80.7 kg (11/23/19 12:48 PM) Oxygen Saturation [94-100 %] 99 % (11/23/19 12:48 PM) Blood Pressure [90-138/55-84 mm Hg] 111/ 76mm Hg (11/23/19 12:48 PM) Respiratory Rate [16-30 br/min] 18 br/mi n (11/23/19 12:48 PM) Temperature [96.8-100.4 DegF] 98.2 DegF (11/23/19 12:48 PM) Mode of Delivery (Oxygen) Room air (11/23/19 12:48 PM) Blood pressure sites Arm, right (11/23/19 12:48 PM) Temperature Route Oral (11/23/19 12:48 PM) Dry Weight 80.7 kg (11/23/19 12:48 PM) Social History Social History Type Response Tobacco Use: 4 or less cigar ettes(less than 1/4 pack)/day in last 30 days. Sex Female
--- OUTSIDE RECORDS SUMMARY | 2022-10-14 11:23 | XMS_ITS | Continuity of Care Document ---
Author Name Unknown Organization [facility] Address Unknown Care Team Providers Care Marketing Services Manager Name Role Phone Chino SMYTH, Edward Vigil Primary Care Physician Encounter [facility] Date(s): 12/23/20 - 01/22/21 [facility] Allergies, Adverse Reactions, Alerts Substance Reaction [...] 3 Refills, Maintenance, 01/07/21 10:31:00 EST, Tablet, [facility] #[id number], Partial fill upon patient request if the [...] of frequent urinary tract infections(Confirmed) 5 Active Opiate dependence(Confirmed) 6 Active HX of [...] mg suboxone daily through [facility] [address] 7Patient states she is not in therapy or on medications at this time. States she is on a waitlist for counseling. States currently stable and feels well. Accepts [facility] consult. 8States working on cutting down to quit in . States she currently smokes 1 cigarette daily.Declines NRT. Social History Social History Type Response Tobacco Use: 4 or less cigar ettes(less than 1/4 pack)/day in last 30 days. Other: Cutting down during , smokes one cigarette daily. Sex
[2022-10-14 11:41] LABS: MANUAL DIFF FLAG NO
[2022-10-14] MEDS: fentaNYL citrate/PF 100 MCG/2 ML VIAL 50 MCG IVPUSH ×2 (11:43→12:30)
[2022-10-14 11:44] LABS: Basophils Percent Auto 0.3 % (0-2); Eosinophils Absolute Auto 0.1 X10*3/uL (0.0-0.4); Hematocrit 38.9 % (37.0-47.0); Hemoglobin 13.8 g/dl (12.0-16.0); Imm Gran Abs Auto 0.02 X10*3/uL (0.00-0.03); Imm Gran Pct Auto 0.3 % (0.0-0.4); Lymphocytes Percent Auto 30.9 % (20-40); Mean Corpuscular HGB Conc 35.5 g/dl (31.0-35.0); Mean Corpuscular Hemoglobin 31.5 pg (27.0-33.0); Mean Corpuscular Volume 88.8 fL (80.0-98.0); Mean Platelet Volume 10.4 fL (9.4-12.3); Monocytes Absolute Auto 0.6 X10*3/uL (0.1-1.2); Monocytes Percent Auto 8.5 % (2-11); Neutrophils Absolute Auto 3.8 x10*3/uL (2.0-8.3); Platelet Count 279 X10*3/uL (160-400); Red Blood Count 4.38 X10*6/uL (4.20-5.50); Red Cell Distribution Width 11.4 % (11.0-16.0); White Blood Count 6.5 X10*3/uL (4.8-10.8)
--- NOTE | 2022-10-14 11:50 | PC.NURSE ---
pt a&ox3. respirations even and unlabored.pt is slightly diaphoretic. pt reporting excruciating abdominal pain, pt has hx of previous hernias. pt is currently 12 weeks heart tones noted to be between 158-160. at bedside preforming an abdominal ultrasound. at bedside discussing possible treatment plan. pt normal sinus on tele.
[2022-10-14 11:59] LABS: Lactic Acid 1.6 mmol/L (0.5-2.0)
[2022-10-14 12:06] LABS: Alanine Aminotransferase 8 U/L (0-31); Albumin Level 4.3 g/dL (3.5-5.0); Alkaline Phosphatase 44 U/L (39-117); Anion Gap 17 (12-20); Aspartate Amino Transferase 12 U/L (5-31); Bilirubin Direct 0.2 mg/dL (0.0-0.5); Bilirubin Total 0.6 mg/dL (0.0-1.0); Blood Urea Nitrogen 9 mg/dL (9-16); Calcium 9.8 mg/dL (8.4-10.2); Carbon Dioxide 21 mmol/L (22-29); Chloride 104 mmol/L (96-108); Estimated Glomerular Filt Rate > 60; Glucose Random 106 mg/dL (60-115); Lipase 9 U/L (8-78); Potassium 3.7 mmol/L (3.3-5.1); Sodium 138 mmol/L (135-145); Total Protein 7.9 g/dL (6.5-8.0)
--- NOTE | 2022-10-14 12:23 | PM.CNGS ---
History of Present Illness Consult details Consult date: 10/14/22 Narrative: 37F here in the ED for abdominal pain. She is 12 weeks , nad had been doing well so far. However, about 2 hours ago, she had sudden, severe pain and tenderness on the epigastric area with a lump. She says she had known she had a hernia in this area since she was 2 years ago. She says she had seen a surgeon in [facility] but she was told no surgery was planned. The pain had persisted and she says this remains severe. She also describes nausea. [facility] Surgical History Surgical History History of hernia surgery Social History Social History Alcohol intake: never Smoked in Last 30 Days: No Use of substances other than those prescribed or required for medical reasons: No Advance Directives: No Advance Directives Information Provided: No Current occupational status: disabled Current occupation: rt handed Meds Allergies Allergy/AdvReac Type Severity Reaction Status Date / Time No Known Allergies Allergy Verified 11/11/20 10:21 Home Medications Medication Instructions Recorded Confirmed Last Taken Type buprenorphine 2 mg-naloxone 0.5 mg 1 film buccal DAILY 11/11/20 Unknown History sublingual film (Suboxone) buprenorphine 8 mg-naloxone 2 mg 1 film buccal DAILY 11/11/20 Unknown History sublingual film (Suboxone) Physical Exam Vital Signs: Vital Signs: Last Vital Signs Temp 98 F 10/14/22 11:05 Pulse 93 10/14/22 11:05 Resp 18 10/14/22 11:05 BP 138/84 10/14/22 11:05 Pulse Ox 98 10/14/22 11:05 O2 Del Method Room Air 10/14/22 11:05 BMI result Body Mass Index 28.9 Const: Other: looks uncomfortable General: no acute distress Resp: Effort & Inspection: normal respiratory effort Cardio: Rhythm: regular rhythm GI: Other: palpable mass on epigastric hernia with severe tenderness, unable to tolerate any attempt at reduction Results Labs 10/14/22 11:34 10/14/22 11:34 Labs: Abnormal lab results 10/14/22 10/14/22 Range/Units 11:34 11:34 MCHC 35.5 H (31.0-35.0) g/dl Carbon Dioxide 21 L (22-29) mmol/L Short CBC 10/14/22 Range/Units 11:34 WBC 6.5 (4.8-10.8) X10*3/uL Hgb 13.8 (12.0-16.0) g/dl Hct 38.9 (37.0-47.0) % Plt Count 279 (160-400) X10*3/uL BMP 10/14/22 11:34 Sodium 138 Potassium 3.7 Chloride 104 Carbon Dioxide 21 L BUN 9 Creatinine 0.75 Calcium 9.8 Cardiac Enzymes 10/14/22 Range/Units 11:34 Total Creatine Kinase 73 (26-140) U/L Liver Function 10/14/22 Range/Units 11:34 Total Bilirubin 0.6 (0.0-1.0) mg/dL Direct Bilirubin 0.2 (0.0-0.5) mg/dL AST 12 (5-31) U/L ALT 8 (0-31) U/L Alkaline Phosphatase 44 (39-117) U/L Albumin 4.3 (3.5-5.0) g/dL All other labs normal. Laboratory Results WBC 6.5 X10*3/uL (4.8-10.8) 10/14/22 11:34 RBC 4.38 X10*6/uL (4.20-5.50) 10/14/22 11:34 Hgb 13.8 g/dl (12.0-16.0) 10/14/22 11:34 Hct 38.9 % (37.0-47.0) 10/14/22 11:34 MCV 88.8 fL (80.0-98.0) 10/14/22 11:34 MCH 31.5 pg (27.0-33.0) 10/14/22 11:34 MCHC 35.5 g/dl (31.0-35.0) H 10/14/22 11:34 RDW 11.4 % (11.0-16.0) 10/14/22 11:34 Plt Count 279 X10*3/uL (160-400) 10/14/22 11:34 MPV 10.4 fL (9.4-12.3) 10/14/22 11:34 Immature Gran % (Auto) 0.3 % (0.0-0.4) 10/14/22 11:34 Neut % (Auto) 58.0 % (45-73) 10/14/22 11:34 Lymph % (Auto) 30.9 % (20-40) 10/14/22 11:34 [place] % (Auto) 8.5 % (2-11) 10/14/22 11:34 Eos % (Auto) 2.0 % (0-4) 10/14/22 11:34 Baso % (Auto) 0.3 % (0-2) 10/14/22 11:34 Lymph # (Auto) 2.0 X10*3/uL (1.2-4.9) 10/14/22 11:34 [place] # (Auto) 0.6 X10*3/uL (0.1-1.2) 10/14/22 11:34 Eos # (Auto) 0.1 X10*3/uL (0.0-0.4) 10/14/22 11:34 Baso # (Auto) 0.0 X10*3/uL (0.0-0.2) 10/14/22 11:34 Abs Immat Gran (auto) 0.02 X10*3/uL (0.00-0.03) 10/14/22 11:34 Absolute Neuts (auto) 3.8 x10*3/uL (2.0-8.3) 10/14/22 11:34 Absolute Nucleated RBC 0.000 X10*3/uL (0.0-0.012) 10/14/22 11:34 Nucleated RBC % (auto) 0.0 /100WBC (0.0-0.2) 10/14/22 11:34 Sodium 138 mmol/L (135-145) 10/14/22 11:34 Potassium 3.7 mmol/L (3.3-5.1) 10/14/22 11:34 Chloride 104 mmol/L (96-108) 10/14/22 11:34 Carbon Dioxide 21 mmol/L (22-29) L 10/14/22 11:34 Anion Gap 17 (12-20) 10/14/22 11:34 BUN 9 mg/dL (9-16) 10/14/22 11:34 Creatinine 0.75 mg/dL (0.5-1.4) 10/14/22 11:34 Estim Creat Clear Calc 97.0 10/14/22 11:34 Estimated GFR > 60 10/14/22 11:34 Random Glucose 106 mg/dL (60-115) 10/14/22 11:34 Lactic Acid 1.6 mmol/L (0.5-2.0) 10/14/22 11:34 Calcium 9.8 mg/dL (8.4-10.2) 10/14/22 11:34 Magnesium 2.0 mg/dL (1.6-2.6) 10/14/22 11:34 Total Bilirubin 0.6 mg/dL (0.0-1.0) 10/14/22 11:34 Direct Bilirubin 0.2 mg/dL (0.0-0.5) 10/14/22 11:34 AST 12 U/L (5-31) 10/14/22 11:34 ALT 8 U/L (0-31) 10/14/22 11:34 Alkaline Phosphatase 44 U/L (39-117) 10/14/22 11:34 Total Creatine Kinase 73 U/L (26-140) 10/14/22 11:34 Total Protein 7.9 g/dL (6.5-8.0) 10/14/22 11:34 Albumin 4.3 g/dL (3.5-5.0) 10/14/22 11:34 Lipase 9 U/L (8-78) 10/14/22 11:34 Assessment and Plan (1) Incarcerated epigastric hernia: Status: Inactive She has severe pain and tenderness on this epigastric area that appears to be an acutely incarcerated epigastric hernia. There are bowel loops seen on US. She will need urgent repair and reductio of this acutely incarcerated hernia. I have discussed this with the anesthesiologist as the patient is 12 weeks . They have recommended that the patient be transferred to [facility] for heart monitoring with the procedure. Unfortunately we do not have OB services at this time, so after discussion with anesthesia and the ED staff, it harris been decided that the patient will be transferred to [facility]. Time Spent With Patient Time: Total time managing care of this patient today ____ minutes. Procedures Date of Service Date of Service: 10/20/22
[2022-10-14 12:31] VITALS: BP 139/78; PULSE 88; RESP 18; O2SAT 98
[2022-10-14 12:35] LABS: COVID-19 Test Negative (Negative); IDNOW Serial# BCCEAD1C
[2022-10-14] MEDS: HYDROmorphone HCl 0.5 MG/0.5 ML SYRINGE 0.25 MG IVPUSH ×2 (12:45→14:01)
[2022-10-14 12:46] VITALS: BP 139/79; PULSE 81; RESP 18; O2SAT 98
[2022-10-14 14:14] VITALS: BP 130/78; PULSE 85; RESP 16; O2SAT 99
[2022-10-14] MEDS: cefTRIAXone sodium 1 GM in 0.9 % Sodium Chloride 50 ML IV (14:15)
[2022-10-14] MEDS: fentaNYL citrate/PF 100 MCG/2 ML VIAL 25 MCG IVPUSH (14:15)
--- NOTE | 2022-10-14 14:30 | PC.NURSE ---
pt a&ox3. respirations even and unlabored. pt diaphoretic at this time. pt reports a 10/10 abdominal pain. pt medicated per apr.
--- NOTE | 2022-10-14 14:34 | PC.NURSE ---
report given to Brown VALENTIN at [facility].
--- NOTE | 2022-10-14 14:52 | PC.NURSE ---
ems at bedside to transport pt to [facility].
== END 2022-10-14 14:55 | disposition short-term general hospital (02) ==
PROVIDERS: Physician Assistant; Physician Assistant Medical; Emergency Provider Student in an Organized Health Care Education/Training Program; PCP Internal Medicine
DX: O99.611 Diseases of the digestive system complicating pregnancy, first trimester (principal); K43.6 Other and unspecified ventral hernia with obstruction, without gangrene; Z3A.12 12 weeks gestation of pregnancy
CPT/HCPCS: 36415; 76857; 80048; 80076; 82550; 83605; 83690; 83735; 85025; 87635; 96365; 96375; 96376; 99285; J0696; J1170; J3010

== ENCOUNTER → 2022-10-14 11:21 | Outpatient (BNV) | payer MEDICAID, SELFPAY | PROVIDERS: Emergency Provider Student in an Organized Health Care Education/Training Program; PCP Internal Medicine; Visit Provider Surgery | DX: K43.6 Other and unspecified ventral hernia with obstruction, without gangrene (principal); Z33.1 Pregnant state, incidental | CPT/HCPCS: 99283 ==

== ENCOUNTER 2023-09-24 09:46 | Outpatient (REF) | payer MEDICAID, SELFPAY ==
[2023-09-24 11:22] LABS: Alanine Aminotransferase 15 U/L (0-31); Albumin Level 4.3 g/dL (3.5-5.0); Alkaline Phosphatase 50 U/L (39-117); Aspartate Amino Transferase 16 U/L (5-31); Bilirubin Direct 0.2 mg/dL (0.0-0.5); Bilirubin Total 0.7 mg/dL (0.0-1.0); Total Protein 6.8 g/dL (6.5-8.0)
[2023-09-26 04:19] LABS: HIV AB/AG Nonreactive (Nonreactive); HIV Num 1 0.06 S/CO (0.00-0.99); ~HepC Num1 0.28 S/CO (0.00-0.79); ~Hepatitis C Antibody Nonreactive (Nonreactive)
== END 2023-09-24 09:47 | disposition home or self-care (01) ==
LOC: HO.HHCL 09:46
PROVIDERS: Visit Provider Emergency Medicine
DX: F11.20 Opioid dependence, uncomplicated (principal)
CPT/HCPCS: 36415; 80076; 86803; 87389

== ENCOUNTER 2024-05-19 11:46 | Outpatient (REF) | payer MEDICAID, SELFPAY ==
[2024-05-19 13:43] LABS: MANUAL DIFF FLAG NO
[2024-05-19 13:45] LABS: Basophils Percent Auto 0.6 % (0-2); Eosinophils Absolute Auto 0.1 X10*3/uL (0.0-0.4); Eosinophils Percent Auto 1.9 % (0-4); Hematocrit 35.6 % (37.0-47.0); Hemoglobin 12.1 g/dl (12.0-16.0); Lymphocytes Absolute Auto 2.9 X10*3/uL (1.2-4.9); Lymphocytes Percent Auto 59.1 % (20-40); Mean Corpuscular Hemoglobin 30.9 pg (27.0-33.0); Mean Platelet Volume 11.3 fL (9.4-12.3); Monocytes Absolute Auto 0.3 X10*3/uL (0.1-1.2); Monocytes Percent Auto 6.6 % (2-11); Neutrophils Absolute Auto 1.5 x10*3/uL (2.0-8.3); Neutrophils Percent Auto 31.8 % (45-73); Platelet Count 275 X10*3/uL (160-400); Red Blood Count 3.91 X10*6/uL (4.20-5.50); Red Cell Distribution Width 12.1 % (11.0-16.0); White Blood Count 4.8 X10*3/uL (4.8-10.8)
--- OUTSIDE RECORDS SUMMARY | 2024-05-19 13:48 | XMS_ITS | Encounter Summary ---
Author Organization [employer] Address [address] [place] [address] 7 [place] [address] Care Team Providers Care Assistant Public Defender Name Role Phone Sunny Lobo AGNJeronimo Primary Care Provider Unavail able Angelia MartinesP Primary Care Provider [phone] Lan Mota ANY COMMODITY SALES DELIVERER Unavailable Unavailable Meaghan Perera NP Primary Care Provider [phone] Encounter Details Date Type Department Care Team (Late st Contact Info) Description 02/07/2022 Orders Only [facility] [address] [place] [address] Yadira Wang MD [address] [place] [address] Social History Tobacco Use Types Packs/Day Years Used Date Smoking Tobacco: Every Day Cigarettes Smokeless Tobacco: Never Alcohol Use Standard Drinks/Week Comments Not Currently 0 (1 standard drink = 0.6 oz pur e alcohol) PHQ-2 Answer Date Recorded Patient Health Questionnaire-2 Score 2 02/04/2022 Comments Unknown Sex and Gender Information Value Date Recorded Sex Assigned at Female 12/15/2021 10:21 AM EDT Legal Sex Female 10:21 AM EDT Gender Identity Female 12/15/2021 10:21 AM EDT Sexual Orientation Choose not to disclose 2021 10:21 AM EDT COVID-19 Exposure Response Date Recorded In the last 10 days, have yo u been in contact with someone who was confirmed or suspected to have Coronavirus/COVID-19? No / Unsure 02/04/2022 2:07 PM EST documented as of this encounter Plan of Treatment Upcoming Encounters Date Type Department Care Team (Late st Contact Info) Description 06/16/2024 9:30 AM EDT Clinical Support [address] [address] Jazmyn Sloan, HOMERO 08/23/2024 9:30 AM EDT Office Visit [address] [address] Meaghan Perera NP [address] [place] [address] documented as of this encounter Visit Diagnoses Not on filedocumented in this encounter Additional Health Concerns Assessment Noted Time PHQ-9 Depression Total Score: 13 022 2:34 PM EST documented as of this encounter Care Teams Assistant Public Defender Relationship Specialty Start Date End Date Sunny Lobo AGNP PCP - General Family Medicine 02/03/22 10/26/22 Angelia [place] FNP [address] [place] [phone] PCP - General Family Medicine 10/27/22 08/17/23 Meaghan Perera NP [address] [place] [address] PCP - General Family Medicine 08/18/23 Lan Mota FNP [address] [place] [address] Nurse Practitioner Family Medicine 01/11/23 documented as of this encounter
--- OUTSIDE RECORDS SUMMARY | 2024-05-19 13:48 | XMS_ITS | Encounter Summary ---
Author Organization [employer] Address [address] [facility] [address]t [place] [address] Care Team Providers Care Fleet Administrator Name Role Phone Svetlana Lan LAYTON Unavailable Unavailable Meaghan Perera NP Primary Care Provider [phone] Encounter Details Date Type Department Care Team (Latest Contact Info) Description 05/19/2024 Travel Social History Tobacco Use Types Packs/Day Years Used Date Smoking Tobacco: Every Day Cigarettes Smokeless Tobacco: Never Alcohol Use Standard Drinks/Week Comments Not Currently 0 (1 standard drink = 0.6 oz pur e alcohol) Depression Answer Date Recorded Patient Health Questionnaire-9 Score 5 05/19/2024 Patient Health Questionnaire-9 Score 5 05/19/2024 Last PHQ-9: Questionnaire Data Not on file 0 05/19/2024 Housing Stability Answer Date Recorded What is your housing situation today? I have azramartin manning 12/30/[address] you li ve. Do you have problems with any of the following? None of the above 12/30/2022 Food Insecurity Answer Date Recorded Within the past 12 months, y ou worried that your food would run out before you got money to buy more: Sometimes True 2024 Within the past 12 months,th e food you bought just didn't last and you didn't have enough money to get more: Sometimes True 04/11/2024 Transportation Answer Date Recorded In the past 12 months, has l ack of transportation kept you from medical appts, meetings, work or from getting things needed for daily living? Yes, it has kept me from medical appointments or getting medications.;Yes, it has kept me from non-medical meetings, work, or getting things that I need 05/19/2024 Utilities Answer Date Recorded In the past 12 months, has t he electric, gas, oil or water company threatened to shut off services in your home? Yes 05/19/2024 Depression Answer Date Recorded Patient Health Questionnaire-2 Score 1 05/19/2024 Internet Access Answer Date Recorded Internet Access Q1 Yes 11/11/2023 Internet Access Q2 Not on file 11/11/2023 Comments No Sex and Gender Information Value Date Recorded Sex Assigned at Female 12/15/2021 10:21 AM EDT Legal Sex Female 10:21 AM EDT Gender Identity Female 12/15/2021 10:21 AM EDT Sexual Orientation Choose not to disclose 2021 10:21 AM EDT documented as of this encounter Plan of Treatment Upcoming Encounters Date Type Department Care Team (Late st Contact Info) Description 06/16/2024 9:30 AM EDT Clinical Support [address] [address] Jazmyn Sloan RN 08/23/2024 9:30 AM EDT Office Visit [address] [address] Meaghan Perera NP [address] [place] [phone] documented as of this encounter Goals Goal Patient Goal Type Associated Problems Recent Progress Patient-Stated? Author Continue to be free of all substances. General Yes Jazmyn Sloan RN documented as of this encounter Visit Diagnoses Not on filedocumented in this encounter Additional Health Concerns Assessment Noted Time PHQ-9 Depression Total Score: 5 05/20/19 25 9:40 AM EDT documented as of this encounter Care Teams Fleet Administrator Relationship Specialty Start Date End Date Meaghan Perera NP [address] [place] [phone] PCP - General Family Medicine 08/18/23 Lan Mota FNP Nurse Practitioner Family Medicine 01/11/23 documented as of this encounter
--- OUTSIDE RECORDS SUMMARY | 2024-05-19 13:48 | XMS_ITS | Encounter Summary ---
Author Organization [employer] Address [address] [place] [address] Care Team Providers Care Plating Foreman Name Role Phone Lan Mota Unavailable Unavailable Meaghan Perera NP Primary Care Provider [phone] Reason for Referral * Consultation (Routine) - Authorized Specialty Diagnoses / Procedures Referred By Contac t Referred To Contact Behavioral Health Diagnoses Moderate anxiety Neymar Cole MD [address] [place] [phone] Phone: tel: fax: Referral ID Status Reason Start Date Expiration Date Visits Requested Visits Authorized [id number] Authorized Specialty Services Required 05/19/2024 05/19/2025 1 1 Reason for Visit * Reason Comments OBAT Encounter Details Date Type Department Care Team (Latest Contact Info) Description 05/19/2024 11:00 AM EDT Office Visit [facility] [address] [place], [place] [phone] Neymar Cole MD [address] [place], [place] [phone] Uncomplicated opioid dependence (CMS/HCC) (Primary Dx); Tobacco use disorder; Moderate anxiety Social History Tobacco Use Types Packs/Day Years [...] is your housing situation today? I have azra manning 12/30/[address] you [...] Description 06/16/2024 9:30 AM EDT Clinical Support [facility] [address] [place] [address] Jazmyn Sloan, HOMERO 08/23/2024 9:30 AM EDT Office Visit [facility] [address] [place] [address] Meaghan Perera NP [address] [place] [address] Scheduled Referrals Name Type Priority Associated Diagnoses Order Schedule Referral to Behavioral Health Outpatient Referral Routine Moderate anxiety Expected: 05/19/2024 (Approximate), Expires: 05/19/2025 documented as of this encounter Goals Goal Patient Goal Type Associated Problems Recent Progress Patient-Stated? Author Continue to be free of all substances. General Yes Jazmyn Sloan RN documented as of this encounter Procedures Procedure Name Priority Date/Time Associated Diagnosis Comments POCT DEONNA-14 URINE DRUG SCREEN Routine 05/19/2024 10:51 AM EDT Uncomplicated opioid dependence (CMS/HCC) documented in this encounter Results * POCT DEONNA-14 Urine Drug Screen (05/19/2024 10:51 AM EDT) THC Negative Cocaine Screen, Urine Negative Opiate Screen, Urine Negative Methamphetamine Screen Urine Negative Amphetamine Screen, Urine Negative Benzodiazepines Screen, Urine Negative Barbiturate Screen, Urine Negative Methadone Screen, Urine Negative Buprenophine Screen, Urine Positive TCA, Urine Negative MDMA Urine Negative ng/mL Oxycodone Screen, Urine Negative Phencyclidine (PCP), Urine Negative Fentanyl, Urine Negative Urine Urine specimen obtained by clean catch procedure / Unknown 05/19/2024 10:51 AM EDT Neymar Cole MD POINT OF CARE TEST ENTER/EDIT ORDERABLES Final Result documented in this encounter Visit Diagnoses Diagnosis Uncomplicated opioid dependence (CMS/HCC)- Primary Tobacco use disorder Moderate anxiety documented in this encounter Additional Health Concerns Assessment Noted Time PHQ-9 Depression Total Score: 5 05/20/19 25 9:40 AM EDT documented as of this encounter Care Teams Plating Foreman Relationship Specialty Start Date End Date Meaghan Perera NP [address] [place] [address] PCP - General Family Medicine 08/18/23 Lan Mota FNP Nurse Practitioner Family Medicine 01/11/23 documented as of this encounter
--- OUTSIDE RECORDS SUMMARY | 2024-05-19 13:48 | XMS_ITS | Encounter Summary ---
Author Organization [employer] Address [address] [facility] [address]t [place] [address] Care Team Providers Care Licensed Vocational Nurse Name Role Phone Svetlana Lan LAYTON Unavailable Unavailable Meaghan Perera NP Primary Care Provider [phone] Reason for Visit * Reason Onset Date Comments Med Refill 05/19/2024 Encounter Details Date Type Department Care Team (Late st Contact Info) Description 05/19/2024 Refill [facility] [address] [place] [address] Jazmyn Sloan, HOMERO Opioid dependence, uncomplicated (CMS/HCC) Social History Tobacco Use Types Packs/Day Years [...] Description 06/16/2024 9:30 AM EDT Clinical Support [address] [address] Jazmyn Sloan RN 08/23/2024 9:30 AM EDT Office Visit [address] [address] Meaghan Perera NP [address] [place] [address] documented as of this encounter Goals Goal Patient Goal Type Associated Problems Recent Progress Patient-Stated? Author Continue to be free of all substances. General Yes Jazmyn Sloan, RN documented as of this encounter Visit Diagnoses Diagnosis Opioid dependence, uncomplicated (CMS/HCC) documented in this encounter Additional Health Concerns Assessment Noted Time PHQ-9 Depression Total Score: 5 05/20/19 25 9:40 AM EDT documented as of this encounter Care Teams Licensed Vocational Nurse Relationship Specialty Start Date End Date Meaghan Perera NP [address] [place] [address] PCP - General Family Medicine 08/18/23 Lan Mota FNP Nurse Practitioner Family Medicine 01/11/23 documented as of this encounter
--- OUTSIDE RECORDS SUMMARY | 2024-05-19 13:48 | XMS_ITS | Encounter Summary ---
Author Organization [employer] Address [address] [facility] 7[address] [place] [address] Care Team Providers Care Route Returner Name Role Phone Svetlana Lan LAYTON Unavailable Unavailable Meaghan Perera NP Primary Care Provider [phone] Reason for Visit * Reason Comments Care Coordination CHW outreach for SDO H food needs-referral completed Encounter Details Date Type Department Care Team (Latest Contact Info) Description 05/19/2024 Patient Outreach [facility] [address] [place] [address] Elie Chang Care Coordination (CHW outreach for SDOH food needs-referral completed /) Social History Tobacco Use Types Packs/Day Years [...] AM EDT documented as of this encounter Progress Notes * Elie Chang - 05/19/2024 10:15 AM EDT CHW Elie Chang, placed outbound call to patient for assistance with SDOH as a referral was received by the provider. Patient's name and were confirmed. Patient screened positive for the following SDOH food insecurities. CHW referral patient to the local list of pantries in the area for help. PT-1 requested was send out in behalf of patient for futures appt. Patient verbalizes understandin g, and able to agree with plan to follow up. Patient educated on extended clinic hours on Mondays through Wednesdays, and Walk-In Urgent Care Located in [facility]. Patient provided with after-hours line for [facility], , which offer night time triage service and option to transfer to construction project administrator provider if needed documented in this encounter Plan of Treatment Upcoming Encounters Date Type Department Care Team (Late st Contact Info) Description 06/16/2024 9:30 AM EDT Clinical Support [facility] [address] [place] [id number] Jazmyn Sloan RN 08/23/2024 9:30 AM EDT Office Visit [facility] [address] [place] [address] Meaghan Perera NP [address] [place] [address] documented as of this encounter Goals Goal Patient Goal Type Associated Problems Recent Progress Patient-Stated? Author Continue to be free of all substances. General Yes Jazmyn Sloan, HOMERO documented as of this encounter Visit Diagnoses Not on filedocumented in this encounter Additional Health Concerns Assessment Noted Time PHQ-9 Depression Total Score: 5 05/20/19 25 9:40 AM EDT documented as of this encounter Care Teams Route Returner Relationship Specialty Start Date End Date Meaghan Perera NP [address] [place] [address] PCP - General Family Medicine 08/18/23 Lan Mota FNP Nurse Practitioner Family Medicine 01/11/23 documented as of this encounter
--- OUTSIDE RECORDS SUMMARY | 2024-05-19 13:48 | XMS_ITS | Encounter Summary ---
Author Organization [employer] Address [address] 7 [place] [address] Care Team Providers Care Breaker Table Worker Name Role Phone Sunny Lobo Primary Care Provider Unavail able Angelia MartinesP Primary Care Provider [phone] Lan Mota LOCOMOTIVE ENGINEER [employer]LECTRIC Unavailable Unavailable Meaghan Perera NP Primary Care Provider + Reason for Visit * Reason Onset Date Comments OTHER 02/17/2022 TC to patient to let her know that provider is unable to fill out and sign paperwork from [facility] for to verify disability for housing. Since she wanted to use the choice of substance abuse, Sunny Lobo does not prescribe her Suboxone and denied ability to sign form, I asked her to contact agency [facility] in [place] where she gets her Suboxone from and she stated they won't do it either , patient then hung up the phone on me. Encounter Details Date Type Department Care Team ([facility] st Contact Info) Description 02/17/2022 Telephone [facility] [address] [place] [address] Sunny Lobo AGNP OTHER (TC to patient to let her know that provider is unable to fill out and sign paperwork from [facility] for to verify disability for housing. Since she wanted to use the choice of substance abuse, Sunny Lobo does not prescribe her Suboxone and denied ability to sign form, I asked her to contact agency [facility] in [place] where she gets her Suboxone from and she stated they won't do it either , patient then hung up the phone on me.) Social History Tobacco Use Types Packs/Day Years Used Date Smoking Tobacco: Every Day Cigarettes Smokeless Tobacco: Never Alcohol Use Standard Drinks/Week Comments Not Currently 0 (1 standard drink = 0.6 oz pur e alcohol) PHQ-2 Answer Date Recorded Patient Health Questionnaire-2 Score 0 02/20/2022 Comments Unknown Sex and Gender Information Value [...] suspected to have Coronavirus/COVID-19? No / Unsure 02/20/2022 10:05 AM EST documented as of this encounter Plan of Treatment Upcoming Encounters Date Type Department Care Team (Late st Contact Info) Description 06/16/2024 9:30 AM EDT Clinical Support [address] [address] Jazmyn Sloan RN 08/23/2024 9:30 AM EDT Office Visit [facility] [address] [place] [phone] Meaghan Perera NP [address] [place] [id number] documented as of this encounter Visit Diagnoses Not on filedocumented in this encounter Additional Health Concerns Assessment Noted Time PHQ-9 Depression Total Score: 13 022 2:34 PM EST documented as of this encounter Care Teams Breaker Table Worker Relationship Specialty Start Date End Date Sunny Lobo AGNP PCP - General Family Medicine 02/03/22 10/26/22 Angelia Martines FNP [address] [place] [id number] PCP - General Family Medicine 10/27/22 08/17/23 Meaghan Perera NP [address] [place] [id number] PCP - General Family Medicine 08/18/23 Lan Mota FNP [address] [place] [address] Nurse Practitioner Family Medicine 01/11/23 documented as of this encounter
--- OUTSIDE RECORDS SUMMARY | 2024-05-19 13:48 | XMS_ITS | Encounter Summary ---
Author Organization [employer] Address [address] [place] [address] 7[address] [place] [address] Care Team Providers Care Delivery Supervisor Name Role Phone Sunny Lobo AGNJeronimo Primary Care Provider Unavail able Angelia MartinesP Primary Care Provider [phone] Lan Mota MARBLE CARVER Unavailable Unavailable Meaghan Perera NP Primary Care Provider [phone] Encounter Details Date Type Department Care Team (Late st Contact Info) Description 07/01/2022 Orders Only [facility] [address] [place] [address] Delia Stockton CNM [address] [place] [address] Social History Tobacco Use Types Packs/Day Years Used Date Smoking Tobacco: Every Day Cigarettes Smokeless Tobacco: Never Alcohol Use Standard Drinks/Week Comments Not Currently 0 (1 standard drink = 0.6 oz pur e alcohol) Depression Answer Date Recorded Patient Health Questionnaire-9 Score 7 06/29/2022 Depression Answer Date Recorded Patient Health Questionnaire-2 Score 0 06/29/2022 Comments No Sex and Gender Information Value [...] suspected to have Coronavirus/COVID-19? No / Unsure 07/03/2022 10:32 AM EDT documented as of this encounter Plan of Treatment Upcoming Encounters Date Type Department Care Team (Late st Contact Info) Description 06/16/2024 9:30 AM EDT Clinical Support [address] [address] Jazmyn Sloan RN 08/23/2024 9:30 AM EDT Office Visit [facility] [address] [place] [address] Meaghan Perera NP [address] [place], [place] documented as of this encounter Procedures Procedure Name Priority Date/Time Associated Diagnosis Comments PAP SMEAR Routine 09/08/2017 12:00 AM EDT documented in this encounter Results * Pap Smear (09/08/2017 12:00 AM EDT) Swab us Historical Provider LAB CYTOLOGY ORDERABLES F inal Result Performing Organization Address City/State/[facility] Co de Phone Number [facility] [address] [place] [address] documented in this encounter Visit Diagnoses Not on filedocumented in this encounter Additional Health Concerns Assessment Noted Time PHQ-9 Depression Total Score: 7 06/30/19 9:44 AM EDT documented as of this encounter Care Teams Delivery Supervisor Relationship Specialty Start Date End Date Sunny Lobo AGNP PCP - General Family Medicine 02/03/22 10/26/22 Angelia Martines FNP [address] [place] [id number] PCP - General Family Medicine 10/27/22 08/17/23 Meaghan Perera NP [address] [place] [id number] PCP - General Family Medicine 08/18/23 Lan Mota FNP [address] [place] [address] Nurse Practitioner Family Medicine 01/11/23 documented as of this encounter
--- OUTSIDE RECORDS SUMMARY | 2024-05-19 13:48 | XMS_ITS | Clinical Summary ---
Author Organization [employer] Address [address] [facility] [address] [place] [address] Care Team Providers Care Racing Board Marker Name Role Phone Lan Mota Unavailable Unavailable Meaghan Perera NP Primary Care Provider [phone] Allergies Active Allergy Reactions Criticality Noted Date Comments Lamotrigine Rash Medium 05/14/2022 DO NOT re-challenge with Lamotrigine due to potential for severe reaction Medications * This document contains information received from the source organization and may not represent a complete record from that organization. lurasidone (Latuda) 20 MG tabletIndication s:Bipolar affective disorder, remission status unspecified (CMS/HCC) Take 1 tablet (20 mg) by mouth Once daily. 30 tablet 2 05/06/19 23 Active cloNIDine (Catapres) 0.1 MG tabletIndication s:Bipolar affective disorder, remission status unspecified (CMS/HCC) Take 1 tablet (0.1 mg) by mouth at bedtime. 90 tablet 1 06/30/19 23 Active nicotine polacrilex (Nicorette) 2 MG lozengeIndicatio ns:Tobacco use disorder 1 lozenge (or less) q1-2 hours instead of a cigarette. 120 lozenge 3 11/05/19 24 Active ibuprofen 400 MG tablet Take 1 tablet (400 mg) by mouth every 6 (six) hours if needed for moderate pain or fever for up to 30 doses. 30 tablet 12/24/19 24 Active acetaminophen (Tylenol) 500 MG tablet Take 1 tablet (500 mg) by mouth every 6 (six) hours. 30 tablet 12/24/19 24 Active lidocaine (Lidoderm) 5 % patch Apply 1 patch topically Once per day. Remove & discard patch within 12 hours or as directed by MD. 30 patch 2 12/24/19 24 025 Active valACYclovir (Valtrex) 500 MG tabletIndication s:HSV (herpes simplex virus) infection TAKE 1 TABLET BY MOUTH TWICE A DAY FOR 3 DAYS DURING AN OUTBREAK 6 tablet 2 04/22/19 25 Active buprenorphine-na loxone (Suboxone) 2-0.5 MG per sublingual filmIndications: Opioid dependence, uncomplicated (CMS/HCC) Place 1 Film under the tongue Once per day for 28 days. 28 Film 05/20/19 25 025 Active Buprenorphine HCl-Naloxone HCl (Suboxone) 8-2 MG SL filmIndications: Opioid dependence, uncomplicated (CMS/HCC) Place 1 Film under the tongue Once per day for 28 days. 28 Film 05/20/19 25 025 Active valACYclovir (Valtrex) 500 MG tabletIndication s:HSV (herpes simplex virus) infection TAKE 1 TABLET BY MOUTH TWICE A DAY FOR 3 DAYS DURING AN OUTBREAK 6 tablet 2 11/21/19 23 025 Discontinued(R eorder (will not trigger notification to Pharmacy)) buprenorphine-na loxone (Suboxone) 2-0.5 MG per sublingual filmIndications: Opioid dependence, uncomplicated (CMS/HCC) Place 1 Film under the tongue Once per day for 28 days. Do not start before April 21, 2024. 28 Film 04/22/19 25 025 Discontinued(R eorder (will not trigger notification to Pharmacy)) Buprenorphine HCl-Naloxone HCl (Suboxone) 8-2 MG SL filmIndications: Opioid dependence, uncomplicated (CMS/HCC) Place 1 Film under the tongue Once per day for 28 days. Do not start before April 21, 2024. 28 Film 04/22/19 25 025 Discontinued(R eorder (will not trigger notification to Pharmacy)) Active Problems Problem Noted Date Diagnosed Date Cannabis use disorder 12/28/2022 Tobacco dependence 10/14/2022 Opioid dependence, uncomplicated 10/14/2022 Tension-type headache, not intractable Bipolar disorder 03/31/2022 Overview (12/28/2022): Assessment: Patient presents with irritable mood and anxiety symptoms. No risk for self- harm, SI, HI. Reason for visit was to assess symptoms and provide support to patient. Symptoms are present in the context of 5th (23 weeks), working and studying, partner in senior living and children with disabilities, coping with cannabis and cigarettes. Provided psychoeducation around coping mechanisms to manage anxiety and recommended OP services referrals, she agreed. At this time Jonna Nina meets criteria for Visit Diagnoses: Problem List Items Addressed This Visit Other Bipolar disorder (CMS/FORMERLY [facility]) Moderate anxiety Tobacco dependence Opioid dependence, uncomplicated (CMS/HCC) Cannabis use disorder Patient ready to address current needs Yes Strengths include Jonna is in preparation stage of change and her motivation will serve as treatment engagement. PLAN: 1. Follow up with [facility]: Recommended for follow-up: as needed 2. Patient goal is engage in MH services 3. Behavioral Recommendations a. Ind. Therapy, referral will be submitted b. Medication Management, referral will be submitted c. Use of coping skills provided as recommended d. [facility] contact info for support Assessment & Plan (06/29/2022 10:24 AM EDT): Plus PTSD. Extensive trauma history. Prior psychiatric treatment since adolescence. Single suicide attempt at at [age] (overdose of pills). Recurrent SI without intent at this time. Memory impairment inappropriate for age. Possible etiologies: Hypothyroidism, traumatic brain injury, chemical brain injury (Ecstasy, other drugs), exposures. Appears approximately average general cognitive capacity, normal vocabulary and insight. Recommend Neuropsych evaluation and Neurologist referral re memory. History consistent with BPD, plus hallucinations. Differential also includes Schizoaffective Bipolar type. Not currently sexually active but does have reproductive potential. Unfortunately she developed a rash reaction to Lamictal, and has discontinued with resolution of the rash. Record has been annotated, and patient advised to NEVER rechallenge with lamotrigine/Lamictal. Sleeping a little better without excessive daytime sedation with Clonidine 0.1 mg 1/2 tab at bedtime. Provider confirmed that Latuda 20 mg is now available at the pharmacy, and pt will be advised to pick it up and start once daily. F/U with me in 6 weeks. She agrees with the plan. Assessment & Plan (05/26/2022 10:50 AM EDT): Plus PTSD. Extensive trauma history. Prior psychiatric treatment since adolescence. Single suicide attempt at at [age] (overdose of pills). Recurrent SI without intent at this time. Memory impairment inappropriate for age. Possible etiologies: Hypothyroidism, traumatic brain injury, chemical brain injury (Ecstasy, other drugs), exposures. Appears approximately average general cognitive capacity, normal vocabulary and insight. Recommend Neuropsych evaluation and Neurologist referral re memory. History consistent with BPD, plus hallucinations. Differential also includes Schizoaffective Bipolar type. Not currently sexually active but does have reproductive potential. Unfortunately she developed a rash reaction to Lamictal, and has discontinued with resolution of the rash. Record has been annotated, and patient advised to NEVER rechallenge with lamotrigine/Lamictal. She tried the Clonidine 0.1 mg 1/2 tab BID but felf too sedated. Suggest trying only at bedtime to help with sleep. Then can add daytime dose of 1/2 tab later when she is more used to the med. She forgot about the Rx for Latuda 20 mg, but still feels she needs a mood stabilizer. Will go to pharmacy and pick it up. F/U with me in 1 month. She agrees with the plan. Assessment & Plan (05/05/2022 12:14 PM EDT): Plus PTSD. Extensive trauma history. Prior psychiatric treatment since adolescence. Single suicide attempt at at [age] (overdose of pills). Recurrent SI without intent at this time. Memory impairment inappropriate for age. Possible etiologies: Hypothyroidism, traumatic brain injury, chemical brain injury (Ecstasy, other drugs), exposures. Appears approximately average general cognitive capacity, normal vocabulary and insight. Recommend Neuropsych evaluation and Neurologist referral re memory. History consistent with BPD, plus hallucinations. Differential also includes Schizoaffective Bipolar type. Not currently sexually active but does have reproductive potential. Unfortunately she developed a rash reaction to Lamictal, and has discontinued with resolution of the rash. Record will be annotated, and patient advised to NEVER rechallenge with lamotrigine/Lamictal. She also tried the Clonidine at bedtime only once and had difficulty getting up in the morning so did not continue. Did try again this morning to help with panic attack and found it helpful. She is willing to try again, taking Clonidine 0.1 mg 1/2 tab at bedtime to acclimate to it, then may increase to 1 full tabe at bedime or BID. She does need a mood stabilizer. Not willing to try again with Abilify which she recalls being too sedating. Not appropriate for other antiepileptics r/t reproductive potential. Will have Latuda 20 mg once daily. F/U with me in 3 weeks. She agrees with the plan. Assessment & Plan (03/31/2022 6:28 PM EST): Plus PTSD. Extensive trauma history. Prior psychiatric treatment since adolescence. Single suicide attempt at at [age] (overdose of pills). Recurrent SI without intent at this time. Memory impairment inappropriate for age. Possible etiologies: Hypothyroidism, traumatic brain injury, chemical brain injury (Ecstasy, other drugs), exposures. Appears approximately average general cognitive capacity, normal vocabulary and insight. Recommend Neuropsych evaluation and Neurologist referral re memory. History consistent with BPD, plus hallucinations. Differential also includes Schizoaffective Bipolar type. Not currently sexually active but does have reproductive potential. Will at this time start Lamictal 25 mg once daily x 2 weeks, then BID. Cautioned about rare rash reaction, if this occurs stop the medication and do not resume without discussing with this provider. For anxiety, would not be appropriate to take benzo due to risk of addiction, and interaction with Suboxone (patient agrees with this assessment). Recalls possibly having Clonidine in the past without problems. Will have Rx for Clonidine 0.1 mg at bedtime, cautioned re dizziness. Then may add morning dose as desired. Explained that we would have frequent appointments until she was feeling more stable, then less often. If needed to miss an appointment please call my curriculum assistant principal to reschedule. If missed appointments might not be able to continue receiving prescriptions. F/U with me in 2-3 weeks. She agrees with the plan. Moderate anxiety 07/20/2011 Overview (12/28/2022): Assessment: Patient presents with irritable mood and anxiety symptoms. No risk for self- harm, SI, HI. Reason for visit was to assess symptoms and provide support to patient. Symptoms are present in the context of 5th (23 weeks), working and studying, partner in senior living and children with disabilities, coping with cannabis and cigarettes. Provided psychoeducation around coping mechanisms to manage anxiety and recommended OP services referrals, she agreed. At this time Jonna Nina meets criteria for Visit Diagnoses: Problem List Items Addressed This Visit Other Bipolar disorder (CMS/HCC) Moderate anxiety Tobacco dependence Opioid dependence, uncomplicated (CMS/HCC) Cannabis use disorder Patient ready to address current needs Yes Strengths include Jonna is in preparation stage of change and her motivation will serve as treatment engagement. PLAN: 1. Follow up with [facility]: Recommended for follow-up: as needed 2. Patient goal is engage in MH services 3. Behavioral Recommendations a. Ind. Therapy, referral will be submitted b. Medication Management, referral will be submitted c. Use of coping skills provided as recommended d. [facility] contact info for support Herpes simplex 07/20/2011 Encounters * This document contains information received from the source organization and may not represent a complete record from that organization. Date Type Department Care Team Description 05/19/2024 11:00 AM EDT Office Visit [facility] [address] [place] [phone] Neymar Cole MD Uncomplicated opioid dependence (CMS/HCC) (Primary Dx); Tobacco use disorder; Moderate anxiety 05/19/2024 9:45 AM EDT Office Visit [facility] [address] [place] [phone] Mirtha Nixon CNP Healthcare maintenance (Primary Dx); Encounter for immunization; Physical exam, routine 05/19/2024 Refill [facility] [address] [place] [phone] Jazmyn Sloan, RN Opioid dependence, uncomplicated (CMS/HCC) 05/19/[address] [address] Jazmyn Sloan, RN 05/19/2024 Patient Outreach [address] [address] Elie Chang Care Coordination (CHW outreach for SDOH food needs-referral completed /) 05/19/2024 Telephone [facility] [address] [place] [phone] Susan Spence MA 05/19/2024 Travel 05/17/2024 Population Health Risk Score Community Care [facility] ([facility]) Department [address] [place] [phone] Provider, Population Health Generic 05/12/2024 Patient Outreach [facility] [address] [place] [address] Meaghan Perera NP Pre-visit Planning (SDOH unable to reach LVM ) 05/09/[address] [address] Meaghan Perera NP 04/21/2024 10:45 AM EST Clinical Support [address] [address] Jazmyn Sloan RN Opioid use disorder in remission (Primary Dx); Tobacco use disorder 04/21/[address] [address] Jazmyn Sloan RN HSV (herpes simplex virus) infection 04/21/[address] [address] Jazmyn Sloan RN HSV (herpes simplex virus) infection 04/21/2024 Travel 04/14/[address] [address] Jazmyn Sloan RN Opioid dependence, uncomplicated (CMS/HCC) 04/11/2024 Patient Outreach [address] [address] Meaghan Perera NP Care Coordination (CHW outreach for SDOH PT-1 and food needs-referral completed /) 04/11/2024 Patient Outreach [address] [address] Meaghan Perera NP Pre-visit Planning (SDOH Screening positive and Tobacco screening positive) 04/06/2024 Telephone [facility] [address] [place], [place] [phone] Meaghan Perera NP chartprep 03/24/2024 9:00 AM EST Clinical Support [address] [address] Jazmyn Sloan RN Uncomplicated opioid dependence (CMS/HCC) (Primary Dx) 03/24/2024 Travel 03/17/2024 Refill [facility] [address] [place] [address] Jazmyn Sloan RN Opioid dependence, uncomplicated ([facility]) 02/25/2024 10:00 AM EST Telemedicine [facility] [address] [facility] [place] [address] Neymar Cole MD Opioid use disorder in remission (Primary Dx); Tobacco use disorder 02/25/2024 Travel from Last 3 Months Immunizations Name Administration Dates Next Due Hep A, Adult 12/03/2023,03/06/2022 Hep B, adult 05/19/2024 Influenza injectable quadrivalent preservative f ree 02/04/2022 Influenza, seasonal, injectable, preservative fr ee 05/19/2024 Pfizer Covid-19 Vaccine 12+ 05/19/2024 Tdap 02/04/2022 Family History Medical History Relation Name Comments Glaucoma Maternal Grandmother Glaucoma Other Relation Name Status Comments Maternal Grandmother Other Social History Tobacco Use Types Packs/Day Years Used Date Smoking Tobacco: Every Day Cigarettes Smokeless Tobacco: Never Tobacco Cessation:Ready to Q uit: Not Asked; Counseling Given: Not Answered Alcohol Use Standard Drinks/Week Comments Not Currently [...] not to disclose 2021 10:21 AM EDT Last Filed Vital Signs Vital Sign Reading Time Taken Comments Blood Pressure 127/82 05/19/2024 9:36 AM EDT Pulse 91 05/19/2024 9:36 AM EDT Temperature 36.4 ??C (97.5 ??F) 05/19/2024 9:36 AM ED T Respiratory Rate 16 05/19/2024 9:36 AM EDT Oxygen Saturation 98% 05/19/2024 9:36 AM EDT Inhaled Oxygen Concentration - - Weight 75.2 kg (165 lb 12.8 oz) 05/19/2024 9:36 AM EDT Height 157.5 cm (5' 2 ) 05/19/2024 9:36 AM EDT Body Mass Index 30.33 05/19/2024 9:36 AM EDT Plan of Treatment Upcoming Encounters Date Type Department Care Team (Late st Contact Info) Description 06/16/2024 9:30 AM EDT Clinical Support [facility] [address] [place] [phone] Jazmyn Sloan RN 08/23/2024 9:30 AM EDT Office Visit [facility] [address] [place] [address] Meaghan Perera NP [address] [place] [address] Health Maintenance Due Date Last Done Comments Family Planning (PISQ) 07/04/2002 Pneumococcal Vaccine: Pediatrics (0 to 5 Years) and At-Risk Patients (6 to 49) Years) (1 of 2 - PCV) 07/04/2006 Hepatitis B Vaccines (3 of 3 - 19+ 3-dose series) 07/14/2024 05/19/2024, 12/24/2016, 03/18/2009 Alcohol/Substance Use Screening 05/19/2025 05/19/2024 Depression Screening 05/19/2025 05/19/2024, 05/20/19 SDOH Screening 05/19/2025 05/19/2024 Tobacco Screening 05/19/2025 05/19/2024 Lipid Panel 07/25/2027 07/24/2022, 09/11/2020 Cervical Cancer Screening 11/20/2027 HPV/Cotest 11/20/2027 11/19/2022 Pap Smear 11/20/2027 11/19/2022, 09/08/2017 DTaP/Tdap/Td Vaccines (6 - Td or Tdap) 03/04/2033 03/04/2023, 02/04/2022, 09/07/2019, Additional history exists Zoster Vaccines (1 of 2) 07/04/2037 RSV Patients and Patients Aged 60 years or older (1 - 1-dose 75+ series) 07/04/2062 HIV Screening Completed 09/24/2023, 06/0 10/2022, 02/27/2022 Hepatitis C Screening Completed 09/24/2023 , 07/24/2022, 02/27/2022 Hepatitis A Vaccines Aged Out 12/03/2023, 03/06/19 No longer eligible based on patient's age to complete this topic COVID-19 Vaccine Completed 05/19/2024, 04/2021, 05/24/2020 Influenza Vaccine Completed 05/19/2024, , 12/03/2019, Additional history exists HIB Vaccines Aged Out No longer eligi ble based on patient's age to complete this topic HPV Vaccines Aged Out No longer eligi ble based on patient's age to complete this topic IPV Vaccines Aged Out No longer eligi ble based on patient's age to complete this topic Meningococcal Vaccine Aged Out No massiel faith eligible based on patient's age to complete this topic RSV under 20 months Aged Out No longe r eligible based on patient's age to complete this topic Rotavirus Vaccines Aged Out No longer eligible based on patient's age to complete this topic Goals Goal Patient Goal Type Associated Problems Recent Progress Patient-Stated? Author Continue to be free of all substances. General Yes Jazmyn Sloan RN Procedures Procedure Name Priority Date/Time Associated Diagnosis Comments CBC WITH AUTO DIFFERENTIAL Routine 05/19/2024 11:50 AM EDT Healthcare maintenance POCT DEONNA-14 URINE DRUG SCREEN Routine 05/19/2024 10:51 AM EDT Uncomplicated opioid dependence (CMS/HCC) POCT DEONNA-14 URINE DRUG SCREEN Routine 04/21/2024 9:22 AM EST Opioid use disorder in remission POCT DEONNA-14 URINE DRUG SCREEN Routine 03/24/2024 9:23 AM EST Uncomplicated opioid dependence (CMS/HCC) HEPATITIS C AB W/REFL TO HCV RNA, QN, PCR Routine 09/24/2023 9:46 AM EDT Opioid dependence, uncomplicated (CMS/HCC) HIV 1/2 ANTIGEN/ANTIBODY, FOURTH GENERATION W/RFL Routine 09/24/2023 9:46 AM EDT Opioid dependence, uncomplicated (CMS/HCC) HM PAP/HPV Routine 11/19/2022 LIPID PANEL, STANDARD Routine 07/24/2022 10:28 AM EDT from Last 3 Months or Most Recently Relevant to Health Maintenance Results * (ABNORMAL) CBC auto differential (05/19/2024 11:50 AM EDT) White Blood Count 4.8 4.8 - 10.8 X10*3/uL [facility] Red Blood Count 3.91(L) 4.20 - 5.50 X10*6/uL [facility] Hemoglobin 12.1 12.0 - 16.0 g/dl [facility] Hematocrit 35.6(L) 37.0 - 47.0 % [facility] Mean Corpuscular Volume 91.0 80.0 - 98.0 fL [facility] Mean Corpuscular Hemoglobin 30.9 27.0 - 33.0 pg [facility] Mean Corpuscular HGB Conc 34.0 31.0 - 35.0 g/dl [facility] Red Cell Distribution Width 12.1 11.0 - 16.0 % [facility] Platelet Count 275 160 - 400 X10*3/uL [facility] Mean Platelet Volume 11.3 9.4 - 12.3 fL [facility] Neutrophils Percent Auto 31.8(L) 45 - 73 % [facility] Imm Gran Pct Auto 0.0 0.0 - 0.4 % [facility] Lymphocytes Percent Auto 59.1(H) 20 - 40 % [facility] Monocytes Percent Auto 6.6 2 - 11 % [facility] Eosinophils Percent Auto 1.9 0 - 4 % [facility] Basophils Percent Auto 0.6 0 - 2 % [facility] NRBC Pct Auto 0.0 0.0 - 0.2 /100WBC [facility] Neutrophils Absolute Auto 1.5(L) 2.0 - 8.3 x10*3/uL [facility] Imm Gran Abs Auto 0.00 0.00 - 0.03 X10*3/uL [facility] Lymphocytes Absolute Auto 2.9 1.2 - 4.9 X10*3/uL [facility] Monocytes Absolute Auto 0.3 0.1 - 1.2 X10*3/uL [facility] Eosinophils Absolute Auto 0.1 0.0 - 0.4 X10*3/uL [facility] Basophils Absolute Auto 0.0 0.0 - 0.2 X10*3/uL [facility] NRBC Abs Auto 0.000 0.0 - 0.012 X10*3/uL [facility] Blood Venous blood specimen / Unknown 05/19/2024 11:50 AM EDT 05/19/2024 1:41 PM EDT Mirtha Nixon CNP LAB BLOOD ORDERABLES Rowan l Result [facility] [address] [place] [address] [phone] * POCT DEONNA-14 Urine Drug Screen (05/19/2024 10:51 AM EDT) Only the most recent of3 resultswithin the time period is included. Pathologist [facility] THC Negative Cocaine Screen, Urine Negative Opiate [...] OF CARE TEST ENTER/EDIT ORDERABLES Final Result * Hepatitis C Antibody with Reflex to HCV, RNA, Quantitative, Real-Time PCR (09/24/2023 9:46 AM EDT) [facility] Hepatitis C Antibody Nonreactive Nonreactive [facility] Comment:Antibodies to HCV no t detected; does not exclude early acuteHCV infection. Blood Venous blood specimen / Unknown 09/24/2023 9:46 AM EDT 09/24/2023 10:47 AM EDT Neymar Cole MD LAB BLOOD ORDERABLES Final Res ult [facility] [address] [place] [phone] * HIV-1/2 Antigen and Antibodies, Fourth Generation, with Reflexes (09/24/2023 9:46 AM EDT) [facility] HIV AB/AG Nonreactive Nonreactive [facility] Comment:HIV-1 p24 Ag and/or HIV-1/HIV-2 Ab not detected.A test result that is nonreactive does not exclude thepossibility of exposure to or infection with HIV-1 and/orHIV-2. Nonreactive results in this assay for individualswith prior exposure to HIV-1 and/or HIV-2 may be due toantigen and antibody levels that are below the limit ofdetection of this assay.The [employer] HIV Ag/Ab Combo assay result andsupplemental assay results should be interpreted inconjunction with the patient's clinical presentation,history and other laboratory results. If the results areinconsistent with clinical evidence, additional testing issuggested to confirm the result. Blood Venous blood specimen / Unknown 09/24/2023 9:46 AM EDT 09/24/2023 10:47 AM EDT Neymar Cole MD LAB BLOOD ORDERABLES Final Res ult [facility] [address] [place] [phone] * Hm Pap Smear (11/19/2022) [facility] Pap Negative for intraephithelial lesion or malignancy Negative for intraephithelial lesion or malignancy, Other HPV Undetected Undetected, Indeterminate, Quantitative, Not Detected Liseth Provider HEALTH MAINTENANCE Final Result * (ABNORMAL) Lipid Panel, Standard (07/24/2022 10:28 AM EDT) [facility] Cholesterol, Total 156 <200 mg/dL [facility] HDL Cholesterol 49(L) > OR = 50 mg/dL [facility] Triglycerides 90 <150 mg/dL [facility] LDL Cholesterol 89 mg/dL (calc) [facility] Comment: Reference range: <100 Desirable range <100 mg/dL for primary prevention; ?? <70 mg/dL for patients with CHD or diabetic patients with > or = 2 CHD risk factors. LDL-C is now calculated using the Lb calculation, which is a validated novel method providing better accuracy than the Friedewald equation in the estimation of LDL-C. Kwan MIGUEL et al. MIGUEL. 2013;310(19): 6033-1875 (http://education.milabent/faq/GWU908) Chol/HDLC Ratio 3.2 <5.0 (calc) [facility] Non-HDL Cholesterol 107 <130 mg/dL (calc) [facility] Comment: For patients with diabetes plus 1 major ASCVD risk factor, treating to a non-HDL-C goal of <100 mg/dL (LDL-C of <70 mg/dL) is considered a therapeutic option. 07/24/2022 10:2 8 AM EDT 07/24/2022 10:29 AM EDT [facility] - 07/29/2022 5:06 PM EDT FASTING:NO FASTING: NO Sunny Lobo [facility] LAB BLOOD ORDERABLES Final Res ult [facility] [address], [place] [address] [employer] [address] [place] [address] from Last 3 Months or Most Recently Relevant to Health Maintenance [place] [address] [place] [address] C3 Care Teams Racing Board Marker Relationship Specialty Start Date End Date Meaghan Perera NP [address] [place] [address] PCP - General Family Medicine 08/18/23 Lan Mota FNP Nurse Practitioner Family Medicine 01/11/23
--- OUTSIDE RECORDS SUMMARY | 2024-05-19 13:48 | XMS_ITS | Encounter Summary ---
Author Organization [employer] Address 75 [facility] 7t [place] [address] Care Team Providers Care Port Crane Operator Name Role Phone Lna Mota Unavailable Unavailable Meaghan Perera NP Primary Care Provider [phone] Encounter Details Date Type Department Care Team (Late st Contact Info) Description 05/19/2024 Telephone [facility] MEDICINE [address] [place] [address] Jazmyn Sloan, HOMERO Social History Tobacco Use Types Packs/Day Years [...] Description 06/16/2024 9:30 AM EDT Clinical Support [address] [address] Jazmyn Sloan, HOMERO 08/23/2024 9:30 AM EDT Office Visit [address] [address] Meaghan Perera NP [address] [place] [address] documented as of this encounter Goals Goal [...] documented as of this encounter Care Teams Port Crane Operator Relationship Specialty Start Date End Date Meaghan Perera NP [address] [place] [address] PCP - General Family Medicine 08/18/23 Lan Mota FNP Nurse Practitioner Family Medicine 01/11/23 documented as of this encounter
--- OUTSIDE RECORDS SUMMARY | 2024-05-19 13:48 | XMS_ITS | Encounter Summary ---
Author Organization [employer] Address 75 [facility] 7t [place] [address] Care Team Providers Care Drilling Machine Operator Name Role Phone Lan Mota Unavailable Unavailable Meaghan Perera NP Primary Care Provider [phone] Encounter Details Date Type Department Care Team (Late st Contact Info) Description 05/19/2024 Telephone [facility] MEDICINE [address] [place] [address] Susan Spence MA Social History Tobacco Use Types Packs/Day Years [...] AM EDT documented as of this encounter Miscellaneous Notes * Telephone Encounter - Susan Spence MA - 05/19/2024 9:42 AM EDT Pt is positive for sdoh documented in this encounter Plan of Treatment Upcoming Encounters Date Type Department Care Team (Late st Contact Info) Description 06/16/2024 9:30 AM EDT Clinical Support [facility] MEDICINE [address] [place] [address] Jazmyn Sloan RN 08/23/2024 9:30 AM EDT Office Visit [facility] MEDICINE [address] [place] [address] Meaghan Perera NP [address] [place] [address] documented as of this encounter Goals Goal [...] documented as of this encounter Care Teams Drilling Machine Operator Relationship Specialty Start Date End Date Meaghan Perera NP [address] [place] [address] PCP - General Family Medicine 08/18/23 Lan Mota FNP Nurse Practitioner Family Medicine 01/11/23 documented as of this encounter
--- OUTSIDE RECORDS SUMMARY | 2024-05-19 13:49 | XMS_ITS | Encounter Summary ---
Author Organization [employer] Address 75 [facility] 7t [place] [address] Care Team Providers Care Microbiology Lab Analyst Name Role Phone Svetlana Lan LAYTON Unavailable Unavailable Meaghan Perera NP Primary Care Provider [phone] Encounter Details Date Type Department Care Team ([facility] st Contact Info) Description 05/17/2024 Population Health Risk Score [facility] (C3) Department [address] [address] Provider, Population Health Generic Social History Tobacco Use Types Packs/Day Years Used Date Smoking Tobacco: Every Day Cigarettes Smokeless Tobacco: Never Alcohol Use Standard Drinks/Week Comments Not Currently 0 (1 standard drink = 0.6 oz pur e alcohol) Depression Answer Date Recorded Patient Health Questionnaire-9 Score 7 01/19/2023 Patient Health Questionnaire-9 Score 7 01/19/2023 Last PHQ-9: Questionnaire Data Not on file 1 03/22/2022 Housing Stability Answer Date Recorded What is [...] from getting things needed for daily living? No 12/01/2022 Utilities Answer Date Recorded In the past 12 months, has t he electric, gas, oil or water company threatened to shut off services in your home? No 12/30/2022 Depression Answer Date Recorded Patient Health Questionnaire-2 Score 0 01/19/2023 Internet Access Answer Date Recorded Internet Access Q1 Yes 11/11/2023 Internet Access Q2 Not on file 11/11/2023 Comments Unknown Sex and Gender Information Value [...] Description 06/16/2024 9:30 AM EDT Clinical Support [address] [address] Jazmyn Sloan RN 08/23/2024 9:30 AM EDT Office Visit [address] [address] Meaghan Perera NP [address] [place] [address] documented as of this encounter Goals Goal Patient Goal Type Associated Problems Recent Progress Patient-Stated? Author Continue to be free of all substances. General Yes Jazmyn Sloan RN documented as of this encounter Visit Diagnoses Not on filedocumented in this encounter Additional Health Concerns Assessment Noted Time PHQ-9 Depression Total Score: 7 01/20/20 23 8:58 AM EST documented as of this encounter Care Teams Microbiology Lab Analyst Relationship Specialty Start Date End Date Meaghan Perera NP [address] [place] [address] PCP - General Family Medicine 08/18/23 Lan Mota FNP Nurse Practitioner Family Medicine 01/11/23 documented as of this encounter
--- OUTSIDE RECORDS SUMMARY | 2024-05-19 13:49 | XMS_ITS | Encounter Summary ---
Author Organization [employer] Address [address] [place] [address] Care Team Providers Care Fiberglass Laminator Name Role Phone Lan Mota Unavailable Unavailable Meaghan Perera NP Primary Care Provider [phone] Reason for Referral * Consultation (Routine) - Authorized Specialty Diagnoses / Procedures Referred By Shayne roberts Referred To Contact Optometry Diagnoses Healthcare maintenance Mirtha Nixon CNP [address] [place] [address] Phone: tel: fax: [facility] [address] [place] [address] Phone: tel: fax: Referral ID Status Reason Start Date Expiration Date Visits Requested Visits Authorized [id number] Authorized Consult and Treat 05/19/2024 05/19/2025 1 1 Reason for Visit * Reason Comments pe Encounter Details Date Type Department Care Team (Late st Contact Info) Description 05/19/2024 9:45 AM EDT Office Visit [facility] MEDICINE [address] [place] [address] Mirtha Nixon CNP [address] [place] [address] Healthcare maintenance (Primary Dx); Encounter for immunization; Physical exam, routine Social History Tobacco Use Types Packs/Day Years [...] AM EDT documented as of this encounter Last Filed Vital Signs Vital Sign Reading [...] Mass Index 30.33 05/19/2024 9:36 AM EDT documented in this encounter Progress Notes * Mirtha Nixon CNP - 05/19/2024 9:45 AM EDT Subjective Patient ID: Jonna Nina is a 38 y.o. female who presents for physical exam required for school. 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 Social hx: follows with [facility] program, smoker, cannabis use LMP, Last pap 11/2022-NILM, HPV Neg, next due 11/2027 IMMs: due for covid, flu, hep b Review of Systems Constitutional: Negative for appetite change, chills, diaphoresis, fatigue, fever and unexpected weight change. Respiratory: Negative for apnea, cough, chest tightness, shortness of breath and wheezing. Cardiovascular: Negative for chest pain and palpitations. Gastrointestinal: Negative for abdominal distention, abdominal pain, blood in stool, constipation, diarrhea, nausea and vomiting. Skin: Negative for pallor. Neurological: Negative for dizziness, syncope, speech difficulty, weakness, light-headedness, numbness and headaches. Objective Vitals: 05/19/24 0936 BP: 127/82 Pulse: 91 Resp: 16 Temp: 97.5 ??F (36.4 ??C) SpO2: 98% Physical Exam Constitutional: General: She is not in acute distress. Appearance: Normal appearance. She is not ill-appearing. HENT: Head: Normocephalic and atraumatic. Right Ear: Tympanic membrane, ear canal and external ear normal. There is no impacted cerumen. Left Ear: Tympanic membrane, ear canal and external ear normal. There is no impacted cerumen. Nose: No congestion or rhinorrhea. Mouth/Throat: Mouth: Mucous membranes are moist. Pharynx: No oropharyngeal exudate or posterior oropharyngeal erythema. Eyes: General: No scleral icterus. Right eye: No discharge. Left eye: No discharge. Extraocular Movements: Extraocular movements intact. Pupils: Pupils are equal, round, and reactive to light. Cardiovascular: Rate and Rhythm: Normal rate and regular rhythm. Pulses: Normal pulses. Heart sounds: Normal heart sounds. No murmur heard. No friction rub. No gallop. Pulmonary: Effort: Pulmonary effort is normal. No respiratory distress. Breath sounds: Normal breath sounds. No stridor. No wheezing, rhonchi or rales. Chest: Chest wall: No tenderness. Abdominal: General: Abdomen is flat. Bowel sounds are normal. There is no distension. Palpations: Abdomen is soft. There is no mass. Tenderness: There is no abdominal tenderness. There is no guarding. Musculoskeletal: General: Normal range of motion. Cervical back: Normal range of motion and neck supple. No tenderness. Right lower leg: No edema. Left lower leg: No edema. Lymphadenopathy: Cervical: No cervical adenopathy. Skin: General: Skin is warm and dry. Capillary Refill: Capillary refill takes less than 2 seconds. Neurological: General: No focal deficit present. Mental Status: She is alert and oriented to person, place, and time. Psychiatric: Mood and Affect: Mood normal. Behavior: Behavior normal. Thought Content: Thought content normal. Judgment: Judgment normal. Assessment/Plan Problem List Items Addressed This Visit None Visit Diagnoses Healthcare maintenance - Primary Relevant Orders Comprehensive Metabolic Panel CBC auto differential Lipid Panel, Standard T-SPOT??.TB Hepatitis B Surface Antibody, Qualitative Ordered routine bloodwork as well as bloodwork required by nursing program Pt is UTD with health maintenance, will provide referral for [facility] vision center for routine exam. Encounter for immunization Relevant Orders COVID-19 VACCINE (Pfizer) [id number] 12 yrs + (Completed) FLU VACCINE TRIVALENT (Fluarix) 6 mo + (Completed) HEPATITIS B VACCINE ADULT 20 yrs + (Completed) Physical exam, routine Physical exam was normal today without any acute abnormalities Advised pt to schedule f/u with PCP for ongoing care. [facility] POLICE OFFICER Attestation POLICE OFFICER Resident Attestation: Patient was seen and evaluated by Mirtha Nixon CNP, in collaboration with Carlos Garcia MD whohas reviewed my assessment and plan. I, Carlos Garcia MD , have reviewed the resident's note and agree with the assessment & plan of care as documented above. documented in this encounter Plan of Treatment Upcoming Encounters Date Type Department Care Team (Late st Contact Info) Description 06/16/2024 9:30 AM EDT Clinical Support [facility] MEDICINE [address] [place] [address] Jazmyn Sloan, HOMERO 08/23/2024 9:30 AM EDT Office Visit [facility] MEDICINE [address] [place] [address] Meaghan Perera NP [address] [place] [address] Scheduled Orders Name Type Priority Associated Diagnoses Orde r Schedule Comprehensive Metabolic Panel Lab Routine Healthcare maintenance Expected: 05/19/2024 (Approximate), Expires: 05/19/2025 Lipid Panel, Standard Lab Routine Healthcare maintenance Expected: 05/19/2024 (Approximate), Expires: 05/19/2025 T-SPOT??.TB Lab Routine Healthcare maintenance Expected: 05/19/2024 (Approximate), Expires: 05/19/2025 Hepatitis B Surface Antibody, Qualitative Lab Routine Healthcare maintenance Expected: 05/19/2024 (Approximate), Expires: 05/19/2025 Scheduled Referrals Name Type Priority Associated Diagnoses Orde r Schedule Referral to [facility] Eye Care Outpatient Referral Routine Healthcare maintenance Expected: 05/19/2024 (Approximate), Expires: 05/19/2025 documented as of this encounter Goals Goal Patient Goal Type Associated Problems Recent Progress Patient-Stated? Author Continue to be free of all substances. General Yes Jazmyn Sloan, RN documented as of this encounter Procedures Procedure Name Priority Date/Time Associated Diagnosis Comments CBC WITH AUTO DIFFERENTIAL Routine 05/19/2024 11:50 AM EDT Healthcare maintenance documented in this encounter Results * (ABNORMAL) CBC auto differential (05/19/2024 11:50 AM EDT) White Blood Count 4.8 4.8 - 10.8 X10*3/uL [facility] Red Blood Count 3.91(L) 4.20 - 5.50 X10*6/uL [facility] Hemoglobin 12.1 12.0 - 16.0 g/dl [facility] Hematocrit 35.6(L) 37.0 - 47.0 % [facility] Mean Corpuscular Volume 91.0 80.0 - 98.0 fL [facility] Mean Corpuscular Hemoglobin 30.9 27.0 - 33.0 pg [facility] Mean Corpuscular HGB Conc 34.0 31.0 - 35.0 g/dl [facility] Red Cell Distribution Width 12.1 11.0 - 16.0 % [facility] Platelet Count 275 160 - 400 X10*3/uL [facility] Mean Platelet Volume 11.3 9.4 - 12.3 fL [facility] Neutrophils Percent Auto 31.8(L) 45 - 73 % [facility] Imm Gran Pct Auto 0.0 0.0 - 0.4 % [facility] Lymphocytes Percent Auto 59.1(H) 20 - 40 % [facility] Monocytes Percent Auto 6.6 2 - 11 % [facility] Eosinophils Percent Auto 1.9 0 - 4 % [facility] Basophils Percent Auto 0.6 0 - 2 % [facility] NRBC Pct Auto 0.0 0.0 - 0.2 /100WBC [facility] Neutrophils Absolute Auto 1.5(L) 2.0 - 8.3 x10*3/uL [facility] Imm Gran Abs Auto 0.00 0.00 - 0.03 X10*3/uL [facility] Lymphocytes Absolute Auto 2.9 1.2 - 4.9 X10*3/uL [facility] Monocytes Absolute Auto 0.3 0.1 - 1.2 X10*3/uL [facility] Eosinophils Absolute Auto 0.1 0.0 - 0.4 X10*3/uL [facility] Basophils Absolute Auto 0.0 0.0 - 0.2 X10*3/uL [facility] NRBC Abs Auto 0.000 0.0 - 0.012 X10*3/uL [facility] Blood Venous blood specimen / Unknown 05/19/2024 11:50 AM EDT 05/19/2024 1:41 PM EDT Mirtha Nixon [facility] LAB BLOOD ORDERABLES Rowan l Result [facility] [address] [place] [address] [phone] documented in this encounter Visit Diagnoses Diagnosis Healthcare maintenance- Primary Encounter for immunization Physical exam, routine documented in this encounter Additional Health Concerns Assessment Noted Time PHQ-9 Depression Total Score: 5 05/20/19 25 9:40 AM EDT documented as of this encounter Care Teams Fiberglass Laminator Relationship Specialty Start Date End Date Meaghan Perera NP [address] [place] [address] PCP - General Family Medicine 08/18/23 Lan Mota FNP Nurse Practitioner Family Medicine 01/11/23 documented as of this encounter
[2024-05-19 14:26] LABS: Alanine Aminotransferase 19 U/L (0-31); Albumin Level 4.3 g/dL (3.5-5.0); Alkaline Phosphatase 51 U/L (39-117); Anion Gap 10 (12-20); Aspartate Amino Transferase 21 U/L (5-31); Bilirubin Total 0.6 mg/dL (0.0-1.0); Blood Urea Nitrogen 9 mg/dL (9-16); Carbon Dioxide 24 mmol/L (22-29); Chloride 110 mmol/L (96-108); Cholesterol 156 mg/dL (<200); Estimated Glomerular Filt Rate > 60; Glucose Random 95 mg/dL (60-115); HDL Cholesterol 48 mg/dL (>40); LDL Cholesterol Calculated 96 mg/dL (<100); Potassium 3.7 mmol/L (3.3-5.1); Sodium 140 mmol/L (135-145); Total Protein 6.9 g/dL (6.5-8.0); Triglycerides 63 mg/dL (<150)
[2024-05-20 07:20] LABS: ~Hepatitis B Surface Antibody REACTIVE (Nonreactive)
[2024-05-22 12:48] LABS: TS Negative Control Passed; TS Panel A 0; TS Panel B 0; TS Positive Control Passed; TSpotTB Negative (Negative)
== END 2024-05-19 11:47 | disposition home or self-care (01) ==
LOC: HO.HHCL 11:46
DX: Z00.00 Encounter for general adult medical examination without abnormal findings (principal); Z11.1 Encounter for screening for respiratory tuberculosis
CPT/HCPCS: 36415; 80053; 80061; 85025; 86481; 86706

== ENCOUNTER 2024-06-20 09:59 | Outpatient (REF) | payer MEDICAID, SELFPAY ==
--- OUTSIDE RECORDS SUMMARY | 2024-06-20 11:23 | XMS_ITS | Encounter Summary ---
Author Organization [employer] Address 75 [facility] 7t [place] [address] Care Team Providers Care Military Communications Specialist Name Role Phone Lan Mota Unavailable Unavailable Meaghan Perera NP Primary Care Provider [phone] Reason for Visit * Reason Comments [facility] F/U Encounter Details Date Type Department Care Team (Latest Contact Info) Description 06/16/2024 9:30 AM EDT Clinical Support [facility] MEDICINE [address] [place] [phone] Jazmyn Sloan, HOMERO Healthcare maintenance (Primary Dx); Opioid type dependence, continuous (CMS/HCC) Social History Tobacco Use Types Packs/Day [...] as of this encounter Progress Notes * Jazmyn Sloan RN - 06/16/2024 9:30 AM EDT Patient ID: Jonna Nina is here today for Opioid Dependence RV. Dose is 10/2.5 mg daily on a 4 week schedule. Induction date: 02/20/22. LFTs done 09/24/2023. Patient actively enrolled in behavioral health services, sees Clementine DAVIS reviewed by provider. Anxiety Smoking Nursing school PCP No ADRs 04/21/24 UTOX: bup Jonna was visibly anxious and pacing. 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 She said that this semester, she has no grades below an 85,and most are in the 90s. As for suboxone, she said she is doing great, with no sfx and no cravings. She said that she stopped using marijuana two months ago because she is applying for the nursing program and needs to be substance free. She said that she is in need of another dose of valcyclovir and a request was made. We will see her again in 4 weeks, and no changes were made to her bup. Today 05/20/24 Utox BUP Doing well. Needed to buy a new car-due to $, bought a high mileage Subaru. Still in school. 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 Anxious about school and new car. Interested in connecting with Bryson Jones team therapist. No ADRs. Had PCP appointment earlier today. Smoking more due to stress. Did not tolerate nicotine patch (anxiety). Lozenges help. Objective Physical Exam Constitutional: Appearance: Normal appearance. Neurological: Mental Status: She is alert and oriented to person, place, and time. Psychiatric: Mood and Affect: Mood normal. Behavior: Behavior normal. Thought Content: Thought content normal. Uncomplicated opioid dependence ([facility]) Utox BUP Doing well. Needed to buy a new car-due to $, bought a high mileage Subaru. Still in school. 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 Anxious about school and new car. Interested in connecting with Bryson Jones, team therapist. No ADRs. Had PCP appointment earlier today. Smoking more due to stress. Did not tolerate nicotine patch (anxiety). Lozenges help. Continues to do well. No ADRs. I will ask Bryson if she can see her on f/u. F/U 4 weeks. Tobacco use disorder As above. Review on f/u-if needed review other Rx options. Assessment/Plan Diagnoses and all orders for this visit: Opioid type dependence, continuous ([facility]) - POCT DEONNA-14 Urine Drug Screen This information has been disclosed to you from records protected by federal confidentiality rules(42 CFR Part 2). The federal rules prohibit you from making any further disclosure of information in this record that identifies a patient as having or having had a substance use disorder either directly, by reference to publicly available information, or through verification of such identificationby another person unless further disclosure is expressly permitted by the written consent of the individual whose information is being disclosed or as otherwise permitted by (see 2.3.1). The federal rules restrict any use of the information to investigate or prosecute with regard to a crime any patient with a substance use disorder, except as provided at 2.12??(5) and 2.65. documented in this encounter Plan of Treatment Upcoming Encounters Date Type Department Care Team (Late st Contact Info) Description 07/14/2024 10:00 AM EDT Office Visit [address] [address] Neymar Cole MD [address] [place] [phone] 08/23/2024 9:30 AM EDT Office Visit [address] [address] Meaghan Perera NP [address] [place] [phone] Scheduled Orders Name Type Priority Associated Diagnoses Orde r Schedule Measles, Mumps, and Rubella (MMR) Antibodies??(IgG) Panel, Immune Status Lab Routine Healthcare maintenance Expected: 06/16/2024 (Approximate), Expires: 06/16/2025 documented as of this encounter Goals Goal Patient Goal Type Associated Problems Recent Progress Patient-Stated? Author Continue to be free of all substances. General Yes Jazmyn Sloan RN documented as of this encounter Procedures Procedure Name Priority Date/Time Associated Diagnosis Comments POCT DEONNA-14 URINE DRUG SCREEN Routine 06/16/2024 1:40 PM EDT Opioid type dependence, continuous ([facility]) documented in this encounter Results * POCT DEONNA-14 Urine Drug Screen (06/16/2024 1:40 PM EDT) THC Negative Cocaine Screen, Urine Negative Opiate Screen, Urine Negative Methamphetamine Screen Urine Negative Amphetamine Screen, Urine Negative Benzodiazepines Screen, Urine Negative Barbiturate Screen, Urine Negative Methadone Screen, Urine Negative Buprenophine Screen, Urine Positive TCA, Urine Negative MDMA Urine Negative ng/mL Oxycodone Screen, Urine Negative Phencyclidine (PCP), Urine Negative Fentanyl, Urine Negative Urine Urine specimen obtained by clean catch procedure / Unknown 06/16/2024 1:40 PM EDT Shai Butcher MD POINT OF CARE TEST ENTER/EDIT OR DERABLES Final Result documented in this encounter Visit Diagnoses Diagnosis Healthcare maintenance- Primary Opioid type dependence, continuous (CMS/HCC) Opioid type dependence, continuous documented in this encounter Additional Health Concerns Assessment Noted Time PHQ-9 Depression Total Score: 5 05/20/19 25 9:40 AM EDT documented as of this encounter Care Teams Military Communications Specialist Relationship Specialty Start Date End Date Meaghan Perera NP [address] [place] [address] PCP - General Family Medicine 08/18/23 Lan Mota FNP Nurse Practitioner Family Medicine 01/11/23 documented as of this encounter
--- OUTSIDE RECORDS SUMMARY | 2024-06-20 11:23 | XMS_ITS | Encounter Summary ---
Author Organization [employer] Address 75 [facility] 7t [place] [address] Care Team Providers Care Linemarker Name Role Phone Sunny Lobo AGNP Primary Care Provider Unavail able Angelia MartinesP Primary Care Provider [phone] Lan Mota WRINGER MACHINE OPERATOR Unavailable Unavailable Meaghan Perera NP Primary Care Provider [phone] Encounter Details Date Type Department Care Team (Late st Contact Info) Description 07/01/2022 Orders Only [facility] MEDICINE [address] [place] [address] Delia Stockton CNM [address] [place] [address] Social History Tobacco Use Types Packs/Day Years [...] Description 07/14/2024 10:00 AM EDT Office Visit [facility] [place] [address] Neymar Cole MD [address] [place] [address] 08/23/2024 9:30 AM EDT Office Visit [facility] MED[facility] [address] [place] [address] Meaghan Perera NP [address] [place] [address] documented as of this encounter Procedures Procedure Name Priority Date/Time Associated Diagnosis Comments PAP SMEAR Routine 09/08/2017 12:00 AM EDT documented in this encounter Results * Pap Smear (09/08/2017 12:00 AM EDT) Swab us Historical Provider LAB CYTOLOGY ORDERABLES F inal Result [facility] [address] [place] [address] documented in this encounter Visit Diagnoses Not on filedocumented in this encounter Additional Health Concerns Assessment Noted Time PHQ-9 Depression Total Score: 7 06/30/19 9:44 AM EDT documented as of this encounter Care Teams Linemarker Relationship Specialty Start Date End Date Sunny Lobo AGNP PCP - General Family Medicine 02/03/22 10/26/22 Angelia Martines FNP [address] [place] [address] PCP - General Family Medicine 10/27/22 08/17/23 Meaghan Perera NP [address] [place] [address] PCP - General Family Medicine 08/18/23 Lan Mota FNP [address] [place] [address] Nurse Practitioner Family Medicine 01/11/23 documented as of this encounter
--- OUTSIDE RECORDS SUMMARY | 2024-06-20 11:23 | XMS_ITS | Clinical Summary ---
Author Organization [employer] Address [address] [facility] [address] [place] [address] Care Team Providers Care Photoengraving Retoucher Name Role Phone Lan Mota Unavailable Unavailable Meaghan Perera NP Primary Care Provider [phone] Allergies Active Allergy Reactions Criticality Noted Date [...] bedtime. 90 tablet 1 06/30/19 23 Active ibuprofen 400 MG tablet Take 1 [...] 30 patch 2 12/24/19 24 025 Active buprenorphine-na loxone (Suboxone) 2-0.5 MG per sublingual filmIndications: Opioid dependence, uncomplicated (CMS/HCC) Place 1 Film under the tongue Once per day for 28 days. Do not start before June 16, 2024. 28 Film 06/17/19 25 025 Active Buprenorphine HCl-Naloxone HCl (Suboxone) 8-2 MG SL filmIndications: Opioid dependence, uncomplicated (CMS/HCC) Place 1 Film under the tongue Once per day for 28 days. Do not start before June 16, 2024. 28 Film 06/17/19 25 025 Active nicotine polacrilex (Nicorette) 2 MG lozengeIndicatio ns:Tobacco use disorder 1 LOZENGE (OR LESS) EVERY 1 TO 2 HOURS INSTEAD OF A CIGARETTE 120 lozenge 3 06/17/19 25 Active valACYclovir (Valtrex) 500 MG tabletIndication s:HSV (herpes simplex virus) infection TAKE 1 TABLET BY MOUTH TWICE A DAY FOR 3 DAYS DURING AN OUTBREAK 6 tablet 2 06/17/19 25 Active nicotine polacrilex (Nicorette) 2 MG lozengeIndicatio ns:Tobacco use disorder 1 lozenge (or less) q1-2 hours instead of a cigarette. 120 lozenge 3 11/05/19 24 025 Discontinued(R eorder (will not trigger notification to Pharmacy)) valACYclovir (Valtrex) 500 MG tabletIndication s:HSV (herpes simplex virus) infection TAKE 1 TABLET BY MOUTH TWICE A DAY FOR 3 DAYS DURING AN OUTBREAK 6 tablet 2 04/22/19 25 025 Discontinued(R eorder (will not trigger notification to Pharmacy)) buprenorphine-na loxone (Suboxone) 2-0.5 MG per sublingual filmIndications: Opioid dependence, uncomplicated (CMS/HCC) Place 1 Film under the tongue Once per day for 28 days. 28 Film 05/20/19 25 025 Discontinued(R eorder (will not trigger notification to Pharmacy)) Buprenorphine HCl-Naloxone HCl (Suboxone) 8-2 MG SL filmIndications: Opioid dependence, uncomplicated (CMS/HCC) Place 1 Film under the tongue Once per day for 28 days. 28 Film 05/20/19 25 025 Discontinued(R eorder (will not trigger notification to Pharmacy)) Active Problems Problem Noted Date Diagnosed Date Cannabis use disorder 12/28/2022 Tobacco dependence 10/14/2022 Opioid dependence, uncomplicated 10/14/2022 Tension-type headache, not intractable 3 Bipolar disorder 03/31/2022 Overview (12/28/2022): Assessment: Patient presents with irritable mood and anxiety symptoms. No risk for self- harm, SI, HI. Reason for visit was to assess symptoms and provide support to patient. 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 PLAN: 1. Follow up with [facility]: Recommended for follow-up: as needed 2. Patient goal is engage in MH services 3. Behavioral Recommendations a. Ind. Therapy, referral will be submitted b. Medication Management, referral will be submitted c. Use of coping skills provided as recommended d. [facility] contact info for support Assessment & [...] to miss an appointment please call my habilitation assistant to reschedule. 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 Provided psychoeducation around coping mechanisms to manage anxiety and recommended OP services referrals, she agreed. At this time Jonna Nina meets criteria for Visit Diagnoses: Problem List Items Addressed This Visit Other Bipolar disorder ([facility]) Moderate anxiety Tobacco dependence Opioid dependence, uncomplicated ([facility]) Cannabis use disorder Patient ready to address current needs Yes Strengths include Jonna is in preparation stage of change and her motivation will serve as treatment engagement. PLAN: 1. Follow up with [facility]: Recommended for follow-up: as needed 2. Patient goal is engage in MH services 3. Behavioral Recommendations a. Ind. Therapy, referral will be submitted b. Medication Management, referral will be submitted c. Use of coping skills provided as recommended d. [facility] contact info for support Herpes simplex 07/20/2011 Encounters * This document contains information received from the source organization and may not represent a complete record from that organization. Date Type Department Care Team Description 06/16/2024 9:30 AM EDT Clinical Support [address] [address] Jazmyn Sloan, RN Healthcare maintenance (Primary Dx); Opioid type dependence, continuous ([facility]) 06/16/[address] [address] Meaghan Perera NP Error (VOID this visit) 06/16/2024 Travel 06/16/2024 Telephone [facility] [address] [place] [phone] Meaghan Perera NP Lab Orders 06/16/2024 Refill [facility] [address] [place] [phone] Neymar Cole MD Tobacco use disorder; HSV (herpes simplex virus) infection 06/13/[address] [address] Meaghan Perera NP Appointment Request 06/12/[address] [address] Jazmyn Sloan RN Opioid dependence, uncomplicated ([facility]/HCC) 05/19/2024 11:00 AM EDT Office Visit [address] [address] Neymar Cole MD Uncomplicated opioid dependence ([facility]/HCC) (Primary Dx); Tobacco use disorder; Moderate anxiety 05/19/2024 9:45 AM EDT Office Visit [address] [address] Mirtha Nixon CNP Healthcare maintenance (Primary Dx); Encounter for immunization; Physical exam, routine 05/19/[address] [address] Jazmyn Sloan RN Opioid dependence, uncomplicated ([facility]/HCC) 05/19/[address] [address] Jazmyn Sloan RN 05/19/2024 Patient Outreach [address] [address] Elie Chang Care Coordination (CHW outreach for SDOH food needs-referral completed /) 05/19/[address] [address] Susan Spence MA 05/19/2024 Travel 05/17/2024 Population Health Risk Score [facility] (C3) Department [address] [place] [phone] Provider, Population Health Generic 05/12/2024 Patient Outreach [facility] [address] [place], [place] [phone] Meaghan Perera NP Pre-visit Planning (SDOH unable to reach LVM ) 05/09/[address] [address] Meaghan Perera NP 04/21/2024 10:45 AM EST Clinical Support [address] [address] Jazmyn Sloan RN Opioid use disorder in remission (Primary Dx); Tobacco use disorder 04/21/2024 Refill [facility] [address] [place] [phone] Jazmyn Sloan RN HSV (herpes simplex virus) infection 04/21/2024 Refill [facility] [address] [place] [phone] Jazmyn Sloan RN HSV (herpes simplex virus) infection 04/21/2024 Travel 04/14/2024 Refill [facility] [address] [place] [phone] Jazmyn Sloan RN Opioid dependence, uncomplicated ([facility]/HCC) 04/11/2024 Patient Outreach [address] [address] Meaghan Perera NP Care Coordination (CHW outreach for SDOH PT-1 and food needs-referral completed /) 04/11/2024 Patient Outreach [address] [address] Meaghan Perera NP Pre-visit Planning (SDOH Screening positive and Tobacco screening positive) 04/06/2024 Telephone [facility] [address] [place], [place] [phone] Meaghan Perera NP chartprep 03/24/2024 9:00 AM EST Clinical Support [address] [address] Jazmyn Sloan RN Uncomplicated opioid dependence ([facility]/HCC) (Primary Dx) 03/24/2024 Travel from Last 3 Months Immunizations Name Administration Dates Next Due Hep A, Adult 12/03/2023,03/06/2022 Hep B, adult 05/19/2024 Influenza injectable quadrivalent preservative f ree 02/04/2022 Influenza, seasonal, injectable, preservative fr ee 05/19/2024 MMR 12/24/2016 Pfizer Covid-19 Vaccine 12+ 05/19/2024 Tdap 02/04/2022 [...] Description 07/14/2024 10:00 AM EDT Office Visit [address] [address] Neymar Cole MD [address] [place] [address] 08/23/2024 9:30 AM EDT Office Visit [facility] [address] [place] [address] Meaghan Perera NP [address] [place] [address] Health Maintenance Due Date Last Done Comments Family Planning (PISQ) 07/04/2002 Pneumococcal Vaccine: Pediatrics (0 to 5 Years) and At-Risk Patients (6 to 49) Years) (1 of 2 - PCV) 07/04/2006 Hepatitis B Vaccines (3 of 3 - 19+ 3-dose series) 07/14/2024 05/19/2024, 12/24/2016, 03/18/2009 Alcohol/Substance Use Screening 05/19/2025 05/19/2024 Depression Screening 05/19/2025 05/19/2024, 05/20/19 SDOH Screening 05/19/2025 05/19/2024 Tobacco Screening 05/19/2025 05/19/2024 Cervical Cancer Screening 11/20/2027 HPV/Cotest 11/20/2027 11/19/2022 Pap Smear 11/20/2027 11/19/2022, 09/08/2017 Lipid Panel 05/19/2029 05/19/2024, 06/0 10/2022, 09/11/2020 DTaP/Tdap/Td Vaccines (6 - Td or Tdap) 03/04/2033 03/04/2023, 02/04/2022, 09/07/2019, Additional history exists Zoster Vaccines (1 of 2) 07/04/2037 RSV Patients and Patients Aged 60 years or older (1 - 1-dose 75+ series) 07/04/2062 HIV Screening Completed 09/24/2023, 0610/2022, 02/27/2022 Hepatitis C Screening Completed 09/24/2023 , [...] 1:40 PM EDT Opioid type dependence, continuous (CMS/HCC) HEPATITIS B SURFACE ANTIBODY, QUALITATIVE Routine 05/19/2024 11:50 AM EDT Healthcare maintenance T-SPOT(R).TB Routine 05/19/2024 11:50 AM EDT Healthcare maintenance LIPID PANEL, STANDARD Routine 05/19/2024 11:50 AM EDT Healthcare maintenance CBC WITH AUTO DIFFERENTIAL Routine 05/19/2024 11:50 AM EDT Healthcare maintenance COMPREHENSIVE METABOLIC PANEL Routine 05/19/2024 11:50 AM EDT Healthcare maintenance [...] dependence, uncomplicated (CMS/HCC) HM PAP/HPV Routine 11/19/2022 from Last 3 Months or Most Recently Relevant to Health Maintenance Results * POCT DEONNA-14 Urine Drug Screen (06/16/2024 1:40 PM EDT) Only the most recent of4 resultswithin the time period is included. THC Negative Cocaine Screen, Urine Negative Opiate [...] CARE TEST ENTER/EDIT OR DERABLES Final Result * T-SPOT??.TB (05/19/2024 11:50 AM EDT) T Spot TB Negative Negative [facility] Comment:A negative test resu lt does not exclude the possibilityof exposure to or infection with Mycobacteriumtuberculosis (M. tuberculosis). Patients with recentexposure to TB infected individuals exhibiting anegative T-SPOT.TB result should be considered forretesting within 6 weeks or if other relevant clinicalsymptoms indicate. Results from T-SPOT.TB testing mustbe used in conjunction with each individual'sepidemiological history, current medical status,and results of other diagnostic evaluations.The T-SPOT.TB test is qualitative and results arereported as positive, borderline, or negative, giventhat the test controls perform as expected. In linewith the Centers for Disease Control and Prevention's2010 recommendation to report quantitative measurementsalongside the qualitative result, the laboratoryprovides spot counts for informational purposes only.The T-SPOT.TB test should not be interpreted as aquantitative test. TS PANEL A 0 [facility] TS PANEL B 0 [facility] Negative Control Passed [facility] Positive Control Passed [facility] Comment:For additional infor jonah, please refer tohttp://education.Drive.ThriveOn/faq/WOW544(This link is being provided for informational/educational purposes only.)THIS TEST WAS PERFORMED AT:[employer] [place] [phone] LARA MD,PHD 05/19/2024 11:5 0 AM EDT 05/19/2024 1:41 PM EDT Mirtha Nixon [facility] LAB BLOOD ORDERABLES Rowan l Result [facility] [address] [place] [address] [phone] * (ABNORMAL) CBC auto differential (05/19/2024 11:50 AM EDT) White Blood Count 4.8 4.8 - 10.8 X10*3/uL [facility] Red Blood Count 3.91(L) 4.20 - 5.50 X10*6/uL [facility] Hemoglobin 12.1 12.0 - 16.0 g/dl [facility] Hematocrit 35.6(L) 37.0 - 47.0 % [facility] Mean Corpuscular Volume 91.0 80.0 - 98.0 fL [facility] Mean Corpuscular Hemoglobin 30.9 27.0 - 33.0 pg [facility] Mean Corpuscular HGB Conc 34.0 31.0 - 35.0 g/dl [facility] Red Cell Distribution Width 12.1 11.0 - 16.0 % [facility] Platelet Count 275 160 - 400 X10*3/uL [facility] Mean Platelet Volume 11.3 9.4 - 12.3 fL [facility] Neutrophils Percent Auto 31.8(L) 45 - 73 % [facility] Imm Gran Pct Auto 0.0 0.0 - 0.4 % [facility] Lymphocytes Percent Auto 59.1(H) 20 - 40 % [facility] Monocytes Percent Auto 6.6 2 - 11 % [facility] Eosinophils Percent Auto 1.9 0 - 4 % [facility] Basophils Percent Auto 0.6 0 - 2 % [facility] NRBC Pct Auto 0.0 0.0 - 0.2 /100WBC [facility] Neutrophils Absolute Auto 1.5(L) 2.0 - 8.3 x10*3/uL [facility] Imm Gran Abs Auto 0.00 0.00 - 0.03 X10*3/uL [facility] Lymphocytes Absolute Auto 2.9 1.2 - 4.9 X10*3/uL [facility] Monocytes Absolute Auto 0.3 0.1 - 1.2 X10*3/uL [facility] Eosinophils Absolute Auto 0.1 0.0 - 0.4 X10*3/uL [facility] Basophils Absolute Auto 0.0 0.0 - 0.2 X10*3/uL [facility] NRBC Abs Auto 0.000 0.0 - 0.012 X10*3/uL [facility] Blood Venous blood specimen / Unknown 05/19/2024 11:50 AM EDT 05/19/2024 1:41 PM EDT [facility] LAB BLOOD ORDERABLES Rowan l Result Performing Organization Address City/[facility] Co de Phone Number [facility] [address] [place] [phone] * Hepatitis B Surface Antibody, Qualitative (05/19/2024 11:50 AM EDT) ~Hepatitis B Surface Antibody REACTIVE Nonreactive [facility] Comment:REACTIVE: > 11.99 mI U/mL Blood Venous blood specimen / Unknown 05/19/2024 11:50 AM EDT 05/19/2024 1:41 PM EDT [facility] LAB BLOOD ORDERABLES Rowan l Result Performing Organization Address [facility] Co de Phone Number [facility] [address] [place] [phone] * Lipid Panel, Standard (05/19/2024 11:50 AM EDT) Triglycerides 63 <150 mg/dL [facility] Comment:Desirable Triglyceri de: less than 150 mg/dLBorderline High Triglyceride 150-199 mg/dLHigh Triglyceride: 200-499 mg/dLVery High Triglyceride: greater than or equal to 5OO mg/dL Cholesterol 156 <200 mg/dL [facility] Comment:Desirable Cholestero l: less than 200 mg/dLBorderline High Cholesterol: 200-239 mg/dLHigh Cholesterol: greater than 239 mg/dL LDL Cholesterol Calculated 96 <100 mg/dL [facility] Comment:Desirable LDL: less than 100 mg/dLNear Optimal/Above Optimal LDL: 110- 129 mg/dLBorderline High LDL: 130-159 mg/dLHigh LDL: 160-189 mg/dLVery High LDL: greater than or equal to 190 mg/dL HDL Cholesterol 48 >40 mg/dL [facility] Comment:Desirable HDL: great er than 40 mg/dL Note: This HDL assay may give artificially low results in patients with liver disease. Blood Venous blood specimen / Unknown 05/19/2024 11:50 AM EDT 05/19/2024 1:41 PM EDT [facility] LAB BLOOD ORDERABLES Rowan l Result [facility] [address] [place] [phone] * (ABNORMAL) Comprehensive Metabolic Panel (05/19/2024 11:50 AM EDT) Sodium 140 135 - 145 mmol/L [facility] Potassium 3.7 3.3 - 5.1 mmol/L [facility] Chloride 110(H) 96 - 108 mmol/L [facility] Carbon Dioxide 24 22 - 29 mmol/L [facility] Anion Gap 10(L) 12 - 20 [facility] Urea Nitrogen (BUN) 9 9 - 16 mg/dL [facility] Creatinine, Serum 0.78 0.5 - 1.4 mg/dL [facility] Estimated Glomerular Filt Rate >60 [facility] Comment:Chronic Kidney Disea se: Estimated GFR < 60 mL/min/1.49l3Okrgyd Kidney Disease: Estimated GFR < 15 mL/min/1.73m2 Glucose 95 60 - 115 mg/dL [facility] Calcium 9.0 8.4 - 10.2 mg/dL [facility] Bilirubin, Total 0.6 0.0 - 1.0 mg/dL [facility] Aspartate Amino Transferase 21 5 - 31 U/L [facility] Alanine Aminotransferase 19 0 - 31 U/L [facility] Total Protein 6.9 6.5 - 8.0 g/dL [facility] Albumin Level 4.3 3.5 - 5.0 g/dL [facility] Alkaline Phosphatase 51 39 - 117 U/L [facility] Blood Venous blood specimen / Unknown 05/19/2024 11:50 AM EDT 05/19/2024 1:41 PM EDT Mirtha Nixon CNP LAB BLOOD ORDERABLES Rowan l Result Performing Organization Address [facility] Co de Phone Number [facility] [address] [place] [phone] * Hepatitis C Antibody with Reflex to HCV, RNA, Quantitative, Real-Time PCR (09/24/2023 9:46 AM EDT) Hepatitis C Antibody Nonreactive Nonreactive [facility] Comment:Antibodies to HCV no t detected; does not exclude early acuteHCV infection. Blood Venous blood specimen / Unknown 09/24/2023 9:46 AM EDT 09/24/2023 10:47 AM EDT Neymar Cole MD LAB BLOOD ORDERABLES Final Res ult Performing Organization Address [facility] Co de Phone Number [facility] [address] [place] [phone] * HIV-1/2 Antigen and Antibodies, Fourth Generation, with Reflexes (09/24/2023 9:46 AM EDT) HIV AB/AG Nonreactive Nonreactive [facility] Comment:HIV-1 p24 Ag and/or HIV-1/HIV-2 Ab not detected.A test result that is nonreactive does not exclude thepossibility of exposure to or infection with HIV-1 and/orHIV-2. Nonreactive results in this assay for individualswith prior exposure to HIV-1 and/or HIV-2 may be due toantigen and antibody levels that are below the limit ofdetection of this assay.The [employer] HIV Ag/Ab Combo assay result andsupplemental assay results should be interpreted inconjunction with the patient's clinical presentation,history and other laboratory results. If the results areinconsistent with clinical evidence, additional testing issuggested to confirm the result. Blood Venous blood specimen / Unknown 09/24/2023 9:46 AM EDT 09/24/2023 10:47 AM EDT Neymar Cole MD LAB BLOOD ORDERABLES Final Res ult [facility] [address] [place] [phone] * Pap Smear (11/19/2022) Pap Negative for intraephithelial lesion or malignancy Negative for intraephithelial lesion or malignancy, Other HPV Undetected Undetected, Indeterminate, Quantitative, Not Detected Historical Provider HEALTH MAINTENANCE Final Result from Last 3 Months or Most Recently Relevant to Health Maintenance Insurance [place] [address] C3 Care Teams Photoengraving Retoucher Relationship Specialty Start Date End Date Meaghan Perera NP [address] [place] [address] PCP - General Family Medicine 08/18/23 Lan Mota FNP Nurse Practitioner Family Medicine 01/11/23
--- OUTSIDE RECORDS SUMMARY | 2024-06-20 11:23 | XMS_ITS | Encounter Summary ---
Author Organization [employer] Address [address] [facility] [address] [place] [address] Care Team Providers Care Telephone Quotation Clerk Name Role Phone JackielaithDarienLanward LAYTON Unavailable Unavailable Meaghan Perera NP Primary Care Provider [phone] Reason for Visit * Reason Onset Date Comments Lab Orders 06/16/2024 Encounter Details Date Type Department Care Team ([facility] st Contact Info) Description 06/16/2024 Telephone [facility] [address] [place] [address] Meaghan Perera NP [address] [place] [address] Lab Orders Social History Tobacco Use Types Packs/Day Years [...] encounter Miscellaneous Notes * Telephone Encounter - Wing Talat RN - 06/16/2024 3:52 PM EDT Tc to pt regarding titer for measles and mumps. Stated it was already ordered today and pt can get it down when she is available. Pt verbalized understanding and agreement with plan. 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 Pt reports taking IZ records but program did not want to except it bevause did not say measles specifically . Pt had due date of 06/29 documented in this encounter Plan of Treatment Upcoming Encounters Date Type Department Care Team (Late st Contact Info) Description 07/14/2024 10:00 AM EDT Office Visit [facility] [address] [place] [phone] Neymar Cole MD [address] [place] [address] 08/23/2024 9:30 AM EDT Office Visit [facility] [address] [place], [place] [phone] Meaghan Perera NP [address] [place], [place] [phone] documented as of this encounter Goals Goal [...] documented as of this encounter Care Teams Telephone Quotation Clerk Relationship Specialty Start Date End Date Meaghan Perera NP [address] [place], [place] [phone] PCP - General Family Medicine 08/18/23 Lan Mota FNP Nurse Practitioner Family Medicine 01/11/23 documented as of this encounter
--- OUTSIDE RECORDS SUMMARY | 2024-06-20 11:23 | XMS_ITS | Encounter Summary ---
Author Organization [employer] Address [address] [facility] [address]t [place] [address] Care Team Providers Care Correctional Officer Name Role Phone Lan Mota Unavailable Unavailable Meaghan Preera NP Primary Care Provider [phone] Encounter Details Date Type Department Care Team (Latest Contact Info) Description 06/16/2024 Travel Social History Tobacco Use Types Packs/Day [...] Description 07/14/2024 10:00 AM EDT Office Visit [address] [address] Neymar Cole MD [address] [place] [phone] 08/23/2024 9:30 AM EDT Office Visit [address] [address] Meaghan Perera NP [address] [place] [phone] documented as of this encounter Goals Goal [...] documented as of this encounter Care Teams Correctional Officer Relationship Specialty Start Date End Date Meaghan Perera NP [address] [place] [phone] PCP - General Family Medicine 08/18/23 Lan Mota FNP Nurse Practitioner Family Medicine 01/11/23 documented as of this encounter
--- OUTSIDE RECORDS SUMMARY | 2024-06-20 11:23 | XMS_ITS | Encounter Summary ---
Author Organization [employer] Address [address] [facility] 7t [place] [address] Care Team Providers Care Timber Sprinkler Name Role Phone SvetlanaDarienLanward LAYTON Unavailable Unavailable Meaghan Perera NP Primary Care Provider [phone] Reason for Visit * Reason Onset Date Comments Error (VOID this visit) 06/16/2024 Encounter Details Date Type Department Care Team ([facility] st Contact Info) Description 06/16/2024 Telephone [facility] [address] [place] [address] Meaghan Perera NP [address] [place] [address] Error (VOID this visit) Social History Tobacco Use Types Packs/Day Years [...] is your housing situation today? I have arza manning 12/30/[address] you [...] Description 07/14/2024 10:00 AM EDT Office Visit [address] [address] Neymar Cole MD [address] [place] [address] 08/23/2024 9:30 AM EDT Office Visit [address] [address] Meaghan Perera NP [address] [place] [address] documented as of this encounter Goals Goal Patient Goal Type Associated Problems Recent Progress Patient-Stated? Author Continue to be free of all substances. General Yes Jazmyn Sloan RN documented as of this encounter Visit Diagnoses Diagnosis Healthcare maintenance documented in this encounter Additional Health Concerns Assessment Noted Time PHQ-9 Depression Total Score: 5 05/20/19 25 9:40 AM EDT documented as of this encounter Care Teams Timber Sprinkler Relationship Specialty Start Date End Date Meaghan Perera NP [address] [place] [address] PCP - General Family Medicine 08/18/23 Lan Mota FNP Nurse Practitioner Family Medicine 01/11/23 documented as of this encounter
--- OUTSIDE RECORDS SUMMARY | 2024-06-20 11:23 | XMS_ITS | Encounter Summary ---
Author Organization [employer] Address [address] [facility] 7t [place] [address] Care Team Providers Care Six Sigma Black Belt Engineer Name Role Phone Lan Mota Unavailable Unavailable Meaghan ePrera NP Primary Care Provider [phone] Encounter Details Date Type Department Care Team ([facility] st Contact Info) Description 05/19/2024 Telephone [facility] [address] [place] [address] Jazmyn Sloan RN Social History Tobacco Use Types Packs/Day Years [...] Description 07/14/2024 10:00 AM EDT Office Visit [facility] [address] [place] [address] Neymar Cole MD [address] [place] [address] 08/23/2024 9:30 AM EDT Office Visit [address] [address] Meaghan Perera NP [address] [place] [address] documented as of this encounter Goals Goal [...] documented as of this encounter Care Teams Six Sigma Black Belt Engineer Relationship Specialty Start Date End Date Meaghan Perera NP [address] [place] [address] PCP - General Family Medicine 08/18/23 Lan Mota FNP Nurse Practitioner Family Medicine 01/11/23 documented as of this encounter
--- OUTSIDE RECORDS SUMMARY | 2024-06-20 11:23 | XMS_ITS | Encounter Summary ---
Author Organization [employer] Address [address] [facility] 7t [place] [address] Care Team Providers Care Software Analyst Name Role Phone Lan Mota Unavailable Unavailable Meaghan Perera NP Primary Care Provider [phone] Reason for Visit * Reason Onset Date Comments Med Refill 06/16/2024 Encounter Details Date Type Department Care Team (Late st Contact Info) Description 06/16/2024 Refill [facility] [address] [place] [address] Neymar Cole MD [address] [place] [address] Tobacco use disorder; HSV (herpes simplex virus) infection Social History Tobacco Use Types Packs/Day Years [...] the past 12 months, has t he [employer] gas, oil or water company threatened to [...] Description 07/14/2024 10:00 AM EDT Office Visit [address] [address] Neymar Cole MD [address] [place] [address] 08/23/2024 9:30 AM EDT Office Visit [facility] [address] [place] [address] Meaghan Perera NP [address] [place] [address] documented as of this encounter Goals Goal Patient Goal Type Associated Problems Recent Progress Patient-Stated? Author Continue to be free of all substances. General Yes Jazmyn Sloan RN documented as of this encounter Visit Diagnoses Diagnosis Tobacco use disorder HSV (herpes simplex virus) infection Herpes simplex without mention of complication documented in this encounter Additional Health Concerns Assessment Noted Time PHQ-9 Depression Total Score: 5 05/20/19 25 9:40 AM EDT documented as of this encounter Care Teams Software Analyst Relationship Specialty Start Date End Date Meaghan Perera NP [address] [place] [address] PCP - General Family Medicine 08/18/23 Lan Mota FNP Nurse Practitioner Family Medicine 01/11/23 documented as of this encounter
--- OUTSIDE RECORDS SUMMARY | 2024-06-20 11:23 | XMS_ITS | Encounter Summary ---
Author Organization [employer] Address [address] [facility] 7t [place] [address] Care Team Providers Care Emergency Medical Service Coordinator Name Role Phone Sunny Lobo AGNP Primary Care Provider Unavail able Angelia Martines ACCOUNT SUPERVISOR Primary Care Provider [phone] Lan Mota ACCOUNT SUPERVISOR Unavailable Unavailable Meaghan Perera NP Primary Care Provider [phone] Encounter Details Date Type Department Care Team (Late st Contact Info) Description 02/07/2022 Orders Only [facility] [address] [place] [address] Yadira Wang MD [address] [place] [address] Social History Tobacco Use Types Packs/Day Years [...] Description 07/14/2024 10:00 AM EDT Office Visit [facility] [address] [place] [address] Neymar Cole MD [address] [place] [address] 08/23/2024 9:30 AM EDT Office Visit [facility] [address] [place] [address] Meaghan Perera NP [address] [place] [address] documented as of this encounter Visit Diagnoses Not on filedocumented in this encounter Additional Health Concerns Assessment Noted Time PHQ-9 Depression Total Score: 13 022 2:34 PM EST documented as of this encounter Care Teams Emergency Medical Service Coordinator Relationship Specialty Start Date End Date Sunny Lobo AGNP PCP - General Family Medicine 02/03/22 10/26/22 Angelia Martines FNP [address] [place] [address] PCP - General Family Medicine 10/27/22 08/17/23 Meaghan Perera NP [address] [place] [address] PCP - General Family Medicine 08/18/23 Lan Mota FNP [address] [place] [address] Nurse Practitioner Family Medicine 01/11/23 documented as of this encounter
--- OUTSIDE RECORDS SUMMARY | 2024-06-20 11:23 | XMS_ITS | Encounter Summary ---
Author Organization [employer] Address [address] [facility] 7t [place] [address] Care Team Providers Care Assembler Wire Group Name Role Phone Sunny Lobo AGNJeronimo Primary Care Provider Unavail able Angelia MartinesP Primary Care Provider [phone] Lan Mota GAS METER REPAIRER Unavailable Unavailable Meaghan Perera NP Primary Care Provider [phone] Reason for Visit * Reason Onset Date Comments OTHER 02/17/2022 TC to patient to let her know that provider is unable to fill out and sign paperwork from [facility] Care for to verify disability for housing. Since she wanted to use the choice of substance abuse, Sunny Lobo does not prescribe her Suboxone and denied ability to sign form, I asked her to contact agency [facility] in [place] where she gets her Suboxone from and she stated they won't do it either , patient then hung up the phone on me. Encounter Details Date Type Department Care Team (Late st Contact Info) Description 02/17/2022 Telephone [facility] [address] [place] [address] Sunny Lobo AGNP OTHER (TC to patient to let her know that provider is unable to fill out and sign paperwork from [facility] for to verify disability for housing. Since she wanted to use the choice of substance abuse, Sunny Lobo does not prescribe her Suboxone and denied ability to sign form, I asked her to contact agency [facility] in [place] where she gets her Suboxone from and [...] Description 07/14/2024 10:00 AM EDT Office Visit [facility] [address] [place] [address] Neymar Cole MD [address] [place] [address] 08/23/2024 9:30 AM EDT Office Visit [address] [place] [address] [address] Meaghan Perera NP [address] [place] [address] documented as of this encounter Visit Diagnoses Not on filedocumented in this encounter Additional Health Concerns Assessment Noted Time PHQ-9 Depression Total Score: 13 022 2:34 PM EST documented as of this encounter Care Teams Assembler Wire Group Relationship Specialty Start Date End Date Sunny Lobo AGNP PCP - General Family Medicine 02/03/22 10/26/22 Angelia Martines FNP [address] [place] [address] PCP - General Family Medicine 10/27/22 08/17/23 Meaghan Perera NP [address] [place] [address] PCP - General Family Medicine 08/18/23 Lan Mota FNP [address] [place] [address] Nurse Practitioner Family Medicine 01/11/23 documented as of this encounter
[2024-06-21 05:59] LABS: Rubella IgG Antibody 5.56 Index
== END 2024-06-20 10:00 | disposition home or self-care (01) ==
LOC: HO.HHCL 09:59
PROVIDERS: Visit Provider Emergency Medicine
DX: Z00.00 Encounter for general adult medical examination without abnormal findings (principal)
CPT/HCPCS: 36415; 86735; 86762; 86765